=== PATIENT | female | born 1965 | race Caucasian/White ===

== ENCOUNTER 2020-10-13 11:46 | Emergency (ER) | payer OTHER ==
[2020-10-13 11:54] VITALS: RESP 20; TEMP 100.8
[2020-10-13] MEDS ORDERED: IBUPROFEN 800 MG TAB PO STA (12:21)
[2020-10-13] MEDS ORDERED: AZITHROMYCIN 500 MG TAB PO STA (12:21)
[2020-10-13] MEDS ORDERED: DEXAMETHASONE SOD PHOSPHATE 4 MG/ML 1 ML VIAL IM STA (12:21)
--- NOTE | 2020-10-13 12:30 | ED ---
Fever HPI - General Chief Complaint: Fever Stated Complaint: sorethroat, headache, fever Time Seen by Provider: 10/13/20 11:57 Source: patient Mode of arrival: wheelchair Limitations: no limitations - History of Present Illness Initial Comments: Patient complains of fever. She has a sore throat. She has no neck pain or stiffness. She has no trouble opening her mouth. She is able to tolerate solid and liquid oral intake. She has taken no medicine for her symptoms. She had a mild headache. She has no chest or belly or back pain. She has no cough or runny nose. - Related Data Previous Rx's Medication Instructions Recorded Azithromycin [Zithromax Z-pack (6 250 mg PO DIRECTED 5 Days #6 tab 10/13/20 tabs)] Allergies Allergy/AdvReac Type Severity Reaction Status Date / Time acetaminophen Allergy Unknown Verified 10/13/20 11:54 [From Darvocet-N 100] nickel Allergy Unknown Verified 10/13/20 11:54 propoxyphene Allergy Unknown Verified 10/13/20 11:54 [From Darvocet-N 100] sucrose Allergy Unknown Verified 10/13/20 11:54 Review of Systems ROS Statement: Those systems with pertinent positive or pertinent negative responses have been documented in the HPI. ROS Other: All systems not noted in ROS Statement are negative. Past Medical History Past Medical History: Hypertension Additional Past Medical History / Comment(s): OCD History of Any Multi-Drug Resistant Organisms: None Reported Past Surgical History: Appendectomy Past Psychological History: Depression, Panic Disorder Smoking Status: Current every day smoker Past Alcohol Use History: None Reported Past Drug Use History: None Reported General Exam Limitations: no limitations General appearance: alert, in no apparent distress Head exam: Present: atraumatic, normocephalic, normal inspection Eye exam: Present: normal appearance, PERRL, EOMI. Absent: scleral icterus, con junctival injection, periorbital swelling ENT exam: Present: other (Positive for erythema in the posterior pharynx) Neck exam: Present: normal inspection Respiratory exam: Present: normal lung sounds bilaterally. Absent: respiratory distress, wheezes Cardiovascular Exam: Present: regular rate, normal rhythm GI/Abdominal exam: Absent: distended Extremities exam: Present: full ROM Back exam: Absent: CVA tenderness (R) Neurological exam: Present: alert, oriented X3 Course Vital Signs 10/13/20 11:48 Temperature 100.8 F H Pulse Rate 93 Respiratory 20 Rate Blood Pressure 153/89 O2 Sat by Pulse 96 Oximetry Medical Decision Making - Medical Decision Making Patient presents with a sore throat and fever. I gave her Tylenol by mouth as well as a dose of azithromycin. She tolerates oral intake. The rest of her exam is unremarkable. She is stable for discharge. Disposition Clinical Impression: Pharyngitis Disposition: HOME SELF-CARE Condition: Good Instructions (If sedation given, give patient instructions): Pharyngitis (ED) Prescriptions: Azithromycin [Zithromax Z-pack (6 tabs)] 250 mg PO DIRECTED 5 Days #6 tab Is patient prescribed a controlled substance at d/c from ED?: No Referrals: Arash Frye MD [Primary Care Provider] - 1-2 days
[2020-10-13 12:58] VITALS: BP 140/79; PULSE 90
== END 2020-10-13 12:58 | disposition home or self-care (01) ==
LOC: EC 11:46
DX: J02.9 Acute pharyngitis, unspecified (principal); I10 Essential (primary) hypertension; F17.200 Nicotine dependence, unspecified, uncomplicated
CPT/HCPCS: 99283; 96372; J1100

== ENCOUNTER 2021-03-26 18:52 | Emergency (ER) | payer OTHER ==
[2021-03-26 19:16] VITALS: RESP 16; TEMP 99
--- NOTE | 2021-03-26 20:53 | US ---
EXAMINATION TYPE: US transvaginal DATE OF EXAM: 03/26/2021 COMPARISON: NONE CLINICAL HISTORY: Heavy vaginal bleeding; post menopausal. EC patient with post menopausal vaginal bl eeding x 1.5 weeks; take meds for HTN and Depression; ; HT5'8, WT 472lb. TECHNIQUE: Transvaginal (TV). Transvaginal sonographic images were medically necessary to better as sess the following anatomy: endometrium Date of LMP: 12 years ago EXAM MEASUREMENTS: Uterus: 11.4 x 4.5 x 6.0 cm Endometrial Stripe: 4.1 cm Right Ovary: not seen Left Ovary: not seen 1. Uterus: enlarged, anteverted. Nabothian cysts are seen in the cervical region. 2. Endometrium: abnormally thickened post menopause as thickness is greater than 0.5cm. Hyperechoic material seen within the endometrial cavity. 3. Bilateral Adnexa: wnl 4. Posterior cul-de-sac: wnl IMPRESSION: Thickened endometrium with endometrial canal blood products in the setting of a postmenopausal woman, differential includes endometrial hyperplasia and malignancy. Endometrium carcinoma should be excluded, correlation with history, physical exam and direct visualiz ation is recommended.
[2021-03-26 20:57] LABS: Basophils % (A) 1 %; Eosinophils # (A) 0.2 k/uL (0-0.7); Eosinophils % (A) 2 %; HCT 38.1 % (34.0-46.0); HGB 11.8 gm/dL (11.4-16.0); Lymphocytes # (A) 1.3 k/uL (1.0-4.8); Lymphocytes % (A) 18 %; MCH 26.8 pg (25.0-35.0); MCHC 30.8 g/dL (31.0-37.0); MCV 86.9 fL (80.0-100.0); Mean Platelet Volume 7.7; Monocytes # (A) 0.3 k/uL (0-1.0); Monocytes % (A) 4 %; Neutrophils # (A) 5.3 k/uL (1.3-7.7); Neutrophils % (A) 74 %; Platelet Count 241 k/uL (150-450); RBC 4.39 m/uL (3.80-5.40); RDW 14.9 % (11.5-15.5); WBC 7.2 k/uL (3.8-10.6)
--- NOTE | 2021-03-26 21:08 | ED ---
General Adult HPI - General Chief complaint: Vaginal Bleeding Stated complaint: Vaginal Bleeding Time Seen by Provider: 03/26/21 19:35 Source: patient, EMS Mode of arrival: EMS Limitations: no limitations - History of Present Illness Initial comments: 56 year-old female patient presents to the emergency department for evaluation of heavy vaginal bleeding and abdominal pain. States that she has had episodes of bleeding on and off since June. States today was the first day she has had pain. States she did pass a fist sized blood clot and her pain completely resolved. States she has had three episodes of bleeding this week. States she does feel somewhat more weak. Her last menstrual period was 12 years ago. Her last gynecologic visit over 20 years ago. She is , one spontaneous . Patient denies any recent rash, fever, chills, cough, shortness of breath, chest pain, nausea, vomiting, diarrhea, constipation, back pain, numbness, tingling, dizziness, weakness, hematuria, dysuria, urinary urgency, urinary frequency, headache, visual changes, or any other complaints. - Related Data Previous Rx's Medication Instructions Recorded Azithromycin [Zithromax Z-pack (6 250 mg PO DIRECTED 5 Days #6 tab 10/13/20 tabs)] Allergies Allergy/AdvReac Type Severity Reaction Status Date / Time acetaminophen Allergy Unknown Verified 10/13/20 11:54 [From Darvocet-N 100] nickel Allergy Unknown Verified 10/13/20 11:54 propoxyphene Allergy Unknown Verified 10/13/20 11:54 [From Darvocet-N 100] sucrose Allergy Unknown Verified 10/13/20 11:54 Review of Systems ROS Statement: Those systems with pertinent positive or pertinent negative responses have been documented in the HPI. ROS Other: All systems not noted in ROS Statement are negative. Past Medical History Past Medical History: Hypertension Additional Past Medical History / Comment(s): OCD History of Any Multi-Drug Resistant Organisms: None Reported Past Surgical History: Appendectomy Past Psychological History: Depression, Panic Disorder Smoking Status: Current every day smoker Past Alcohol Use History: None Reported Past Drug Use History: None Reported General Exam Limitations: no limitations General appearance: alert, in no apparent distress, other (This is a well- developed, well-nourished adult female patient.) Eye exam: Present: normal appearance, PERRL, EOMI. Absent: scleral icterus, con junctival injection, periorbital swelling ENT exam: Present: normal exam, normal oropharynx, mucous membranes moist Respiratory exam: Present: normal lung sounds bilaterally. Absent: respiratory distress, wheezes, rales, rhonchi, stridor Cardiovascular Exam: Present: regular rate, normal rhythm, normal heart sounds. Absent: systolic murmur, diastolic murmur, rubs, gallop, clicks GI/Abdominal exam: Present: soft, normal bowel sounds. Absent: distended, tenderness, guarding, rebound, rigid Neurological exam: Present: alert, oriented X3, CN II-XII intact Psychiatric exam: Present: normal affect, normal mood Skin exam: Present: warm, dry, intact, normal color. Absent: rash Course Vital Signs 03/26/21 03/26/21 18:56 22:23 Temperature 99.0 F Pulse Rate 93 74 Respiratory 16 16 Rate Blood Pressure 123/77 137/89 O2 Sat by Pulse 97 98 Oximetry Medical Decision Making - Medical Decision Making 56 year-old female patient presented for heavy vaginal bleeding on and off for the last 9 months. Physical exam unremarkable. V/S within normal range. Patient ambulatory in room without dizziness or difficulty. Labs reviewed and showed normal hemoglobin. US was performed and showed thickening of the endometrium, reported consistent with endometrial hyperplasia or endometrial cancer. I did discuss the case with hospice liaison OBGYN Dr. Feliz who is willing to have her follow up. I did inform patient of all results including the possibility of malignancy and importance of timely follow up. She is instructed to call Monday for an appointment. Return parameters are discussed in detail. She verbalizes und erstanding and agrees with this plan. Case discussed with my attending Dr. Solis. - Lab Data Result diagrams: 03/26/21 20:50 03/26/21 20:50 Lab Results 03/26/21 03/26/21 03/26/21 Range/Units 20:50 20:50 20:50 WBC 7.2 (3.8-10.6) k/uL RBC 4.39 (3.80-5.40) m/uL Hgb 11.8 (11.4-16.0) gm/dL Hct 38.1 (34.0-46.0) % MCV 86.9 (80.0-100.0) fL MCH 26.8 (25.0-35.0) pg MCHC 30.8 L (31.0-37.0) g/dL RDW 14.9 (11.5-15.5) % Plt Count 241 (150-450) k/uL MPV 7.7 Neutrophils % 74 % Lymphocytes % 18 % Monocytes % 4 % Eosinophils % 2 % Basophils % 1 % Neutrophils # 5.3 (1.3-7.7) k/uL Lymphocytes # 1.3 (1.0-4.8) k/uL Monocytes # 0.3 (0-1.0) k/uL Eosinophils # 0.2 (0-0.7) k/uL Basophils # 0.0 (0-0.2) k/uL PT 9.4 (9.0-12.0) sec INR 0.9 (<1.2) APTT 21.6 L (22.0-30.0) sec Sodium 138 (137-145) mmol/L Potassium 4.6 (3.5-5.1) mmol/L Chloride 105 (98-107) mmol/L Carbon Dioxide 25 (22-30) mmol/L Anion Gap 8 mmol/L BUN 17 (7-17) mg/dL Creatinine 0.79 (0.52-1.04) mg/dL Est GFR (CKD-EPI)AfAm >90 (>60 ml/min/1.73 sqM) Est GFR (CKD-EPI)NonAf 84 (>60 ml/min/1.73 sqM) Glucose 120 H (74-99) mg/dL Calcium 9.4 (8.4-10.2) mg/dL Total Bilirubin 0.2 (0.2-1.3) mg/dL AST 19 (14-36) U/L ALT 17 (4-34) U/L Alkaline Phosphatase 77 (38-126) U/L Total Protein 7.1 (6.3-8.2) g/dL Albumin 3.9 (3.5-5.0) g/dL Blood Type Blood Type Recheck Bld Type Recheck Status Antibody Screen Spec Expiration Date 03/26/21 Range/Units 20:50 WBC (3.8-10.6) k/uL RBC (3.80-5.40) m/uL Hgb (11.4-16.0) gm/dL Hct (34.0-46.0) % MCV (80.0-100.0) fL MCH (25.0-35.0) pg MCHC (31.0-37.0) g/dL RDW (11.5-15.5) % Plt Count (150-450) k/uL MPV Neutrophils % % Lymphocytes % % Monocytes % % Eosinophils % % Basophils % % Neutrophils # (1.3-7.7) k/uL Lymphocytes # (1.0-4.8) k/uL Monocytes # (0-1.0) k/uL Eosinophils # (0-0.7) k/uL Basophils # (0-0.2) k/uL PT (9.0-12.0) sec INR (<1.2) APTT (22.0-30.0) sec Sodium (137-145) mmol/L Potassium (3.5-5.1) mmol/L Chloride (98-107) mmol/L Carbon Dioxide (22-30) mmol/L Anion Gap mmol/L BUN (7-17) mg/dL Creatinine (0.52-1.04) mg/dL Est GFR (CKD-EPI)AfAm (>60 ml/min/1.73 sqM) Est GFR (CKD-EPI)NonAf (>60 ml/min/1.73 sqM) Glucose (74-99) mg/dL Calcium (8.4-10.2) mg/dL Total Bilirubin (0.2-1.3) mg/dL AST (14-36) U/L ALT (4-34) U/L Alkaline Phosphatase (38-126) U/L Total Protein (6.3-8.2) g/dL Albumin (3.5-5.0) g/dL Blood Type O Positive Blood Type Recheck No Previous Record Bld Type Recheck Status CABO Indicated Antibody Screen NEGATIVE Spec Expiration Date 03/29/20212349 - Radiology Data Radiology results: report reviewed, image reviewed Transvaginal ultrasound was obtained. Report was reviewed in its entirety. Impression by Dr. Cadet shows thickened endometrium with endometrial canal blood products in the setting a postmenopausal woman, differential includes endometrial hyperplasia and malignancy. Disposition Clinical Impression: Dysfunctional uterine bleeding, Thickened endometrium Disposition: HOME SELF-CARE Condition: Good Instructions (If sedation given, give patient instructions): Dysfunctional Uterine Bleeding (ED) Additional Instructions: Call Dr. Feliz's office on Monday for appointment, it could take a few weeks to get in to see her. Return immediately if her bleeding worsens or he develop any fainting or significant dizziness. Follow up with your primary care physician for recheck in 1-2 days. Return for any new, worsening, or concerning symptoms. Is patient prescribed a controlled substance at d/c from ED?: No Referrals: Arash Frye MD [Primary Care Provider] - 1-2 days Mariposa Feliz DO [Doctor of Osteopathic Medicine] - 1-2 days Time of Disposition: 21:57
[2021-03-26 21:12] LABS: INR 0.9 (<1.2); Prothrombin Time 9.4 sec (9.0-12.0)
[2021-03-26 21:21] LABS: ALT 17 U/L (4-34); AST 19 U/L (14-36); African American GFR (CKD) >90 (>60 ml/min/1.73 sqM); Albumin 3.9 g/dL (3.5-5.0); Alkaline Phosphatase 77 U/L (38-126); Anion Gap 8 mmol/L; Blood Urea Nitrogen 17 mg/dL (7-17); Calcium 9.4 mg/dL (8.4-10.2); Carbon Dioxide 25 mmol/L (22-30); Chloride 105 mmol/L (98-107); Glucose 120 mg/dL (74-99); Non-African American GFR(CKD) 84 (>60 ml/min/1.73 sqM); Potassium 4.6 mmol/L (3.5-5.1); Sodium 138 mmol/L (137-145); Total Bilirubin 0.2 mg/dL (0.2-1.3); Total Protein 7.1 g/dL (6.3-8.2)
[2021-03-26 21:27] LABS: Partial Thromboplastin Time 21.6 sec (22.0-30.0)
[2021-03-26 22:24] VITALS: BP 137/89; PULSE 74
== END 2021-03-26 22:24 | disposition home or self-care (01) ==
LOC: EC 18:52
DX: R93.89 Abnormal findings on diagnostic imaging of other specified body structures (principal); I10 Essential (primary) hypertension; F17.200 Nicotine dependence, unspecified, uncomplicated; Z90.49 Acquired absence of other specified parts of digestive tract; F32.9 Major depressive disorder, single episode, unspecified
CPT/HCPCS: 36415; 76830; 80053; 85025; 85610; 85730; 86850; 86900; 86901; 99284

== ENCOUNTER 2022-10-16 01:21 | Emergency (ER) | payer OTHER ==
[2022-10-16 01:32] VITALS: TEMP 98.2
[2022-10-16] MEDS ORDERED: BENZONATATE 100 MG CAP PO STA (02:53)
--- NOTE | 2022-10-16 05:22 | ED ---
General Adult HPI - General Chief complaint: Shortness of Breath Stated complaint: Difficulty Breathing Time Seen by Provider: 10/16/22 02:04 Source: patient Mode of arrival: wheelchair Limitations: no limitations - History of Present Illness Initial comments: This is a 57-year-old female with a past medical history including PTSD, OCD and anxiety as well as hypertension presented to the emergency department for shortness of breath. The patient stated that she had an upper respiratory infection 5 weeks ago and was treated with antibiotics as well as 2 rounds of steroids. The patient stated that over the last one day she did have recurrence of a cough and a "tickle" at the top part of her chest that would make her cough. The patient came to the emergency department today because her coughing was continuous and her albuterol rescue inhaler was not sufficient. The patient denied any lightheadedness or dizziness as well as any nausea and vomiting. - Related Data Previous Rx's Medication Instructions Recorded Azithromycin [Zithromax Z-pack (6 250 mg PO DIRECTED 5 Days #6 tab 10/13/20 tabs)] Benzonatate [Tessalon Perles] 100 mg PO TID PRN #30 capsule 10/16/22 Allergies Allergy/AdvReac Type Severity Reaction Status Date / Time acetaminophen Allergy Unknown Verified 10/16/22 01:27 [From Darvocet-N 100] nickel Allergy Unknown Verified 10/16/22 01:27 propoxyphene Allergy Unknown Verified 10/16/22 01:27 [From Darvocet-N 100] sucrose Allergy Unknown Verified 10/16/22 01:27 Review of Systems ROS Statement: Those systems with pertinent positive or pertinent negative responses have been documented in the HPI. ROS Other: All systems not noted in ROS Statement are negative. Past Medical History Past Medical History: Hypertension Additional Past Medical History / Comment(s): OCD History of Any Multi-Drug Resistant Organisms: None Reported Past Surgical History: Appendectomy Past Psychological History: Depression, Panic Disorder Smoking Status: Current some day smoker Past Alcohol Use History: None Reported Past Drug Use History: None Reported General Exam Limitations: no limitations General appearance: alert, in no apparent distress, obese Head exam: Present: atraumatic, normocephalic, normal inspection Eye exam: Present: normal appearance, PERRL Pupils: Present: normal accommodation ENT exam: Present: normal exam, normal oropharynx, mucous membranes moist Neck exam: Present: normal inspection, full ROM Respiratory exam: Present: normal lung sounds bilaterally Cardiovascular Exam: Present: regular rate, normal rhythm, normal heart sounds GI/Abdominal exam: Present: soft, normal bowel sounds Extremities exam: Present: normal inspection, full ROM Back exam: Present: normal inspection, full ROM Neurological exam: Present: alert, oriented X3, CN II-XII intact Psychiatric exam: Present: normal affect, normal mood Skin exam: Present: warm, dry Course Vital Signs 10/16/22 01:27 Temperature 98.2 F Pulse Rate 92 Respiratory 20 Rate Blood Pressure 115/75 O2 Sat by Pulse 98 Oximetry Medical Decision Making - Medical Decision Making Was pt. sent in by a medical professional or institution (, [facility], WOOD GRINDER OPERATOR, urgent care, hospital, or longterm...) When possible be specific @ -No Did you speak to anyone other than the patient for history (EMS, parent, family, police, friend...)? What history was obtained from this source @ -No Did you review nursing and triage notes (agree or disagree)? Why? @ -I reviewed and agree with nursing and triage notes Were old charts reviewed (outside hosp., previous admission, EMS record, old EKG, old radiological studies, urgent care reports/EKG's, longterm records)? Report findings @ -No old charts were reviewed Differential Diagnosis (chest pain, altered mental status, abdominal pain women, abdominal pain men, vaginal bleeding, weakness, fever, dyspnea, syncope, headache, dizziness, GI bleed, back pain, seizure, CVA, palpatations, mental health)? @ -Bronchitis, pneumonia, pneumothorax EKG interpreted by me (3pts min.). @ -None X-rays interpreted by me (1pt min.). @ -Chest x-ray was reviewed and was interpreted by myself showing no acute process or pneumonia noted. CT interpreted by me (1pt min.). @ -None done U/S interpreted by me (1pt. min.). @ -None done What testing was considered but not performed or refused? (CT, X-rays, U/S, labs)? Why? @ -None What meds were considered but not given or refused? Why? @ -None Did you discuss the management of the patient with other professionals (professionals i.e. Dr., PA, WOOD GRINDER OPERATOR, lab, RT, psych nurse, outreach and education social worker, sap business objects developer, teacher, aoc plans intelligence officer, casey saw operator)? Give summary @ -No Was smoking cessation discussed for >3mins.? @ -No Was critical care preformed (if so, how long)? @ -No Were there social determinants of health that impacted care today? How? (Homelessness, low income, unemployed, alcoholism, drug addiction, transportation, low edu. Level, literacy, decrease access to med. care, residential, rehab)? @ -No Was there de-escalation of care discussed even if they declined (Discuss DNR or withdrawal of care, Hospice)? DNR status @ -No What co-morbidities impacted this encounter? (DM, HTN, Smoking, COPD, CAD, Cancer, CVA, ARF, Chemo, Hep., AIDS, mental health diagnosis, sleep apnea, morbid obesity)? @ -Morbid obesity, hypertension Was patient admitted / discharged? Hospital course, mention meds given and route, prescriptions, significant lab abnormalities, going to OR and other pertinent info. @ -The patient was seen and evaluated emergency department. Physical exam, the patient was resting in bed without any acute distress. Vital signs admission were stable. Due to the nature the patient's complaints, a chest x-ray was obtained. The patient was also given Tessalon Perles. Chest x-ray was obtained and was interpreted by myself showing no acute process. The patient likely had an upper respiratory infection versus a bronchitis therefore the patient was given Tessalon Perles and told to continue to monitor her symptoms. The patient was advised to report back to emergency department if her pain and symptoms significant acutely worse. The patient was agreeable to this and all her questions were answered reportedly. The patient was discharged home in stable condition. Undiagnosed new problem with uncertain prognosis? @ -No Drug Therapy requiring intensive monitoring for toxicity (Heparin, Nitro, Insulin, Cardizem)? @ -No Were any procedures done? @ -No Diagnosis/symptom? @ -Cough, secondary to likely upper respiratory infection Acute, or Chronic, or Acute on Chronic? @ -Acute on chronic Uncomplicated (without systemic symptoms) or Complicated (systemic symptoms)? @ -Uncomplicated Side effects of treatment? @ -No Exacerbation, Progression, or Severe Exacerbation? @ -No Poses a threat to life or bodily function? How? (Chest pain, [place], CA, pneumonia, PE, COPD, DKA, ARF, appy, cholecystitis, CVA, Diverticulitis, Homicidal, Suicidal, threat to staff... and all critical care pts) @ -No Disposition Clinical Impression: URI (upper respiratory infection) Disposition: HOME SELF-CARE Condition: Stable Instructions (If sedation given, give patient instructions): Upper Respiratory Infection (DC) Prescriptions: Benzonatate [Tessalon Perles] 100 mg PO TID PRN #30 capsule PRN Reason: Cough Is patient prescribed a controlled substance at d/c from ED?: No Referrals: Leonardo Riggins MD [Primary Care Provider] - 1-2 days Time of Disposition: 06:20
[2022-10-16 06:54] VITALS: BP 116/62; PULSE 72; RESP 18
--- NOTE | 2022-10-16 07:18 | XR ---
EXAMINATION TYPE: XR chest 2V DATE OF EXAM: 10/16/2022 COMPARISON: None HISTORY: 57-year-old female with cough and shortness of breath TECHNIQUE: PA and lateral views FINDINGS: The cardiomediastinal silhouette, aorta, and pulmonary vasculature are within normal limits. There is mild interstitial prominence. Otherwise, lungs and pleural spaces are clear. IMPRESSION: Mild interstitial prominence which may reflect bronchitis or asthma. Otherwise, no acute cardiopulmon anjali process.
== END 2022-10-16 06:53 | disposition home or self-care (01) ==
LOC: EC 01:21
DX: J06.9 Acute upper respiratory infection, unspecified (principal); I10 Essential (primary) hypertension; F17.200 Nicotine dependence, unspecified, uncomplicated
CPT/HCPCS: 71046; 99284

== ENCOUNTER 2024-04-06 17:59 | Emergency (ER) | payer OTHER ==
--- NOTE | 2024-04-06 19:27 | ED ---
Abdominal Pain HPI - General Chief Complaint: Abdominal Pain Stated Complaint: Abdominal Pain Time Seen by Provider: 04/06/24 18:15 Source: patient, RN notes reviewed Mode of arrival: wheelchair Limitations: no limitations - History of Present Illness Initial Comments: This is a 59-year-old female with a history of uterine cancer, currently on provera, and abnormal uterine bleeding presents ER chief complaint of pelvic pain, nausea, and vomiting that has been worsening over the past 5 days. Pain is located to the pelvis most notable to the right side. She is also been experiencing intermittent vaginal bleeding that is currently spotting. She endorses chills but no reported fevers. Denies hematemesis, hematochezia, chest pain, shortness of breath or difficulty breathing. Patient is pending hysterectomy till established care with drug and alcohol treatment specialist.. Follows with oncologist out of [facility] for uterine cancer. Denies known history of metastatic disease. - Related Data Previous Rx's Medication Instructions Recorded Azithromycin [Zithromax Z-pack (6 250 mg PO DIRECTED 5 Days #6 tab 10/13/20 tabs)] Benzonatate [Tessalon Perles] 100 mg PO TID PRN #30 capsule 10/16/22 Allergies Allergy/AdvReac Type Severity Reaction Status Date / Time acetaminophen Allergy Unknown Verified 04/06/24 18:27 [From Darvocet-N 100] nickel Allergy Unknown Verified 04/06/24 18:27 propoxyphene Allergy Unknown Verified 04/06/24 18:27 [From Darvocet-N 100] sucrose Allergy Unknown Verified 04/06/24 18:27 Review of Systems ROS Statement: Those systems with pertinent positive or pertinent negative responses have been documented in the HPI. ROS Other: All systems not noted in ROS Statement are negative. Past Medical History Past Medical History: Cancer, Hypertension Additional Past Medical History / Comment(s): OCD History of Any Multi-Drug Resistant Organisms: None Reported Past Surgical History: Appendectomy Additional Past Surgical History / Comment(s): D&C, dental surgery Past Psychological History: Depression, Panic Disorder Smoking Status: Current some day smoker Past Alcohol Use History: None Reported Past Drug Use History: None Reported General Exam Limitations: no limitations General appearance: alert, in no apparent distress, obese ENT exam: Present: normal exam, mucous membranes moist Neck exam: Present: normal inspection. Absent: tenderness, meningismus, lymphadenopathy Respiratory exam: Present: normal lung sounds bilaterally. Absent: respiratory distress, wheezes, rales, rhonchi, stridor Cardiovascular Exam: Present: regular rate, normal rhythm, normal heart sounds. Absent: systolic murmur, diastolic murmur, rubs, gallop, clicks GI/Abdominal exam: Present: soft, tenderness (pelvic, most notable right lower), normal bowel sounds. Absent: distended, guarding, rebound, rigid Extremities exam: Present: normal inspection, full ROM, normal capillary refill. Absent: tenderness, pedal edema, joint swelling, calf tenderness Back exam: Present: normal inspection Neurological exam: Present: alert, oriented X3, CN II-XII intact Course Vital Signs 04/06/24 04/06/24 18:22 22:32 Temperature 98.7 F 97.8 F Pulse Rate 79 77 Respiratory 20 18 Rate Blood Pressure 136/74 139/68 O2 Sat by Pulse 98 100 Oximetry Medical Decision Making - Medical Decision Making Was pt. sent in by a medical professional or institution (, PA, FIRE PROTECTION INSPECTOR, urgent care, hospital, or [place] health care facility...) When possible be specific @ -No Did you speak to anyone other than the patient for history (EMS, parent, family, police, friend...)? What history was obtained from this source @ -No Did you review nursing and triage notes (agree or disagree)? Why? @ -I reviewed and agree with nursing and triage notes Were old charts reviewed (outside hosp., previous admission, EMS record, old EKG, old radiological studies, urgent care reports/EKG's, [place] health care facility records)? Report findings @ -No old charts were reviewed Differential Diagnosis (chest pain, altered mental status, abdominal pain women, abdominal pain men, vaginal bleeding, weakness, fever, dyspnea, syncope, headache, dizziness, GI bleed, back pain, seizure, CVA, palpatations, mental health, musculoskeletal)? @ -Differential Abdominal Pain Women: Appendicitis, Cholecystitis, diverticulosis, ischemic bowel, pancreatitis, hepatitis, UTI, gastroenteritis, AAA, incarcerated hernia, bowel obstruction, constipation, inflammatory bowel, hepatitis, peptic ulcer disease, splenic infa rction, perforated viscus, vulvitis, ovarian torsion, PID, kidney stone, placenta abruption, this is not meant to be an all-inclusive list EKG interpreted by me (3pts min.). @ -none X-rays interpreted by me (1pt min.). @ -None done CT interpreted by me (1pt min.). @ -CT of the abdomen pelvis noted to be evident of contrast members there may have been extra lesion and a bulky appearance to the uterus, correlate to exclude underlying abnormal thickening/mass, and Evidence of respiratory nodules patient denies stones measuring up to 1 cm. U/S interpreted by me (1pt. min.). @ -None done What testing was considered but not performed or refused? (CT, X-rays, U/S, labs)? Why? @ -None What meds were considered but not given or refused? Why? @ -None Did you discuss the management of the patient with other professionals (professionals i.e. , PA, FIRE PROTECTION INSPECTOR, lab, RT, psych nurse, director of social work, baker, teacher, senior escrow officer, case finishing machine adjuster)? Give summary @ -No Was smoking cessation discussed for >3mins.? @ -No Was critical care preformed (if so, how long)? @ -No Were there social determinants of health that impacted care today? How? (Homelessness, low income, unemployed, alcoholism, drug addiction, transportation, low edu. Level, literacy, decrease access to med. care, [facility], rehab)? @ -No Was there de-escalation of care discussed even if they declined (Discuss DNR or withdrawal of care, Hospice)? DNR status @ -No What co-morbidities impacted this encounter? (DM, HTN, Smoking, COPD, CAD, Cancer, CVA, ARF, Chemo, Hep., AIDS, mental health diagnosis, sleep apnea, morbid obesity)? @ -None Was patient admitted / discharged? Hospital course, mention meds given and route, prescriptions, significant lab abnormalities, going to OR and other pertinent info. @ -discharged. 59-year-old female with pelvic pain, nausea and vomiting. On evaluation patient is resting company no signs acute distress. Vitals are stable. Patient is noted to have tenderness palpation of the pelvis most notable on the right lower. Patient states that she has not been experiencing vaginal bleeding over the past 2 days. She is provided with Toradol and Zofran for pain and nausea pending laboratory results and CT imaging. Patient's labs remarkable for mild LINWOOD with a BUN of 18 and creatinine of 1.28. At this time a liter fluid bolus was ordered. CBC and coagulation profile within normal limits. CT remarkable for bulky appearance of the uterus and evidence of respiratory nodules. Patient is provided with results of laboratory studies and is instructed to follow-up sooner than May with oncologist for further evaluation with concern for possible metastatic disease. Patient states that she is feeling better after Toradol administration and is stable for discharge at this time. All questions have been answered at bedside and strict return parameters discussed with the patient she verbalized understanding. Case discussed with Dr. Rose Undiagnosed new problem with uncertain prognosis? @ -No Drug Therapy requiring intensive monitoring for toxicity (Heparin, Nitro, Insulin, Cardizem)? @ -No Were any procedures done? @ -No Diagnosis/symptom? @ -abnormal uterine bleeding, pelvic pain, uterine cancer, r/o metastatic disease Acute, or Chronic, or Acute on Chronic? @ -acute Uncomplicated (without systemic symptoms) or Complicated (systemic symptoms)? @ -uncomplicated Side effects of treatment? @ -No Exacerbation, Progression, or Severe Exacerbation? @ -No Poses a threat to life or bodily function? How? (Chest pain, [place], [place], pneumonia, PE, COPD, DKA, ARF, appy, cholecystitis, CVA, Diverticulitis, Homicidal, Suicidal, threat to staff... and all critical care pts) @ -No - Lab Data Result diagrams: 04/06/24 19:50 04/06/24 19:50 Lab Results 04/06/24 04/06/24 04/06/24 Range/Units 19:50 19:50 19:50 WBC 8.4 (3.8-10.6) k/uL RBC 4.89 (3.80-5.40) m/uL Hgb 13.1 (11.4-16.0) gm/dL Hct 41.3 (34.0-46.0) % MCV 84.5 (80.0-100.0) fL MCH 26.7 (25.0-35.0) pg MCHC 31.7 (31.0-37.0) g/dL RDW 16.4 H (11.5-15.5) % Plt Count 241 (150-450) k/uL MPV 7.8 Neutrophils % 80 % Lymphocytes % 10 % Monocytes % 6 % Eosinophils % 2 % Basophils % 0 % Neutrophils # 6.7 (1.3-7.7) k/uL Lymphocytes # 0.9 L (1.0-4.8) k/uL Monocytes # 0.5 (0-1.0) k/uL Eosinophils # 0.2 (0-0.7) k/uL Basophils # 0.0 (0-0.2) k/uL Hypochromasia Slight Anisocytosis Slight PT (10.0-12.5) sec INR (<1.2) APTT (22.0-30.0) sec Sodium 139 (137-145) mmol/L Potassium 4.4 (3.5-5.1) mmol/L Chloride 108 H (98-107) mmol/L Carbon Dioxide 20 L (22-30) mmol/L Anion Gap 11 mmol/L BUN 18 H (7-17) mg/dL Creatinine 1.28 H (0.52-1.04) mg/dL Est GFR (CKD-EPI)AfAm 53 (>60 ml/min/1.73 sqM) Est GFR (CKD-EPI)NonAf 46 (>60 ml/min/1.73 sqM) Glucose 94 (74-99) mg/dL Plasma Lactic Acid Jose 1.9 (0.7-2.0) mmol/L Calcium 10.6 H (8.4-10.2) mg/dL Total Bilirubin 0.7 (0.2-1.3) mg/dL AST 17 (14-36) U/L ALT 11 (4-34) U/L Alkaline Phosphatase 93 (38-126) U/L Total Protein 7.2 (6.3-8.2) g/dL Albumin 4.1 (3.5-5.0) g/dL Amylase 35 (30-110) U/L Lipase 50 (23-300) U/L Urine Color Urine Appearance (Clear) Urine pH (5.0-8.0) Ur Specific [place] (1.001-1.035) Urine Protein (Negative) Urine Glucose (UA) (Negative) Urine Ketones (Negative) Urine Blood (Negative) Urine Nitrite (Negative) Urine Bilirubin (Negative) Urine Urobilinogen (<2.0) mg/dL Ur Leukocyte Esterase (Negative) Urine RBC (0-5) /hpf Urine WBC (0-5) /hpf Urine WBC Clumps (None) /hpf Ur Squamous Epith Cells (0-4) /hpf Urine Bacteria (None) /hpf Hyaline Casts (0-2) /lpf Urine Mucus (None) /hpf 04/06/24 04/06/24 Range/Units 19:50 20:37 WBC (3.8-10.6) k/uL RBC (3.80-5.40) m/uL Hgb (11.4-16.0) gm/dL Hct (34.0-46.0) % MCV (80.0-100.0) fL MCH (25.0-35.0) pg MCHC (31.0-37.0) g/dL RDW (11.5-15.5) % Plt Count (150-450) k/uL MPV Neutrophils % % Lymphocytes % % Monocytes % % Eosinophils % % Basophils % % Neutrophils # (1.3-7.7) k/uL Lymphocytes # (1.0-4.8) k/uL Monocytes # (0-1.0) k/uL Eosinophils # (0-0.7) k/uL Basophils # (0-0.2) k/uL Hypochromasia Anisocytosis PT 10.6 (10.0-12.5) sec INR 1.0 (<1.2) APTT 25.1 (22.0-30.0) sec Sodium (137-145) mmol/L Potassium (3.5-5.1) mmol/L Chloride (98-107) mmol/L Carbon Dioxide (22-30) mmol/L Anion Gap mmol/L BUN (7-17) mg/dL Creatinine (0.52-1.04) mg/dL Est GFR (CKD-EPI)AfAm (>60 ml/min/1.73 sqM) Est GFR (CKD-EPI)NonAf (>60 ml/min/1.73 sqM) Glucose (74-99) mg/dL Plasma Lactic Acid Jose (0.7-2.0) mmol/L Calcium (8.4-10.2) mg/dL Total Bilirubin (0.2-1.3) mg/dL AST (14-36) U/L ALT (4-34) U/L Alkaline Phosphatase (38-126) U/L Total Protein (6.3-8.2) g/dL Albumin (3.5-5.0) g/dL Amylase (30-110) U/L Lipase (23-300) U/L Urine Color Light Red Urine Appearance Clear (Clear) Urine pH 5.0 (5.0-8.0) Ur Specific [place] 1.020 (1.001-1.035) Urine Protein Trace H (Negative) Urine Glucose (UA) Negative (Negative) Urine Ketones 1+ H (Negative) Urine Blood Large H (Negative) Urine Nitrite Negative (Negative) Urine Bilirubin Negative (Negative) Urine Urobilinogen <2.0 (<2.0) mg/dL Ur Leukocyte Esterase Negative (Negative) Urine RBC >182 H (0-5) /hpf Urine WBC 4 (0-5) /hpf Urine WBC Clumps Rare H (None) /hpf Ur Squamous Epith Cells <1 (0-4) /hpf Urine Bacteria Rare H (None) /hpf Hyaline Casts 35 H (0-2) /lpf Urine Mucus Few H (None) /hpf Disposition Clinical Impression: Pelvic pain, Abnormal uterine bleeding Disposition: HOME SELF-CARE Condition: Good Instructions (If sedation given, give patient instructions): Pelvic Pain in Women (ED) Additional Instructions: Please return to the Emergency Department if symptoms worsen or any other concerns. Recommend that you contact your oncologist on Monday to schedule sooner follow-up appointment for further evaluation. Is patient prescribed a controlled substance at d/c from ED?: No Referrals: Steven Wood MD [Primary Care Provider] - 1-2 days Time of Disposition: 22:25
[2024-04-06] MEDS: KETOROLAC 15 MG/ML 1 ML VIAL IVP STA (19:58)
[2024-04-06] MEDS: ONDANSETRON 4 MG/2 ML VIAL IVP STA (20:01)
[2024-04-06 20:16] LABS: Anisocytosis Slight; Basophils % (A) 0 %; Eosinophils # (A) 0.2 k/uL (0-0.7); Eosinophils % (A) 2 %; HCT 41.3 % (34.0-46.0); HGB 13.1 gm/dL (11.4-16.0); Hypochromasia Slight; Lymphocytes # (A) 0.9 k/uL (1.0-4.8); Lymphocytes % (A) 10 %; MCH 26.7 pg (25.0-35.0); MCHC 31.7 g/dL (31.0-37.0); MCV 84.5 fL (80.0-100.0); Mean Platelet Volume 7.8; Monocytes # (A) 0.5 k/uL (0-1.0); Monocytes % (A) 6 %; Neutrophils # (A) 6.7 k/uL (1.3-7.7); Neutrophils % (A) 80 %; Platelet Count 241 k/uL (150-450); RBC 4.89 m/uL (3.80-5.40); RDW 16.4 % (11.5-15.5); WBC 8.4 k/uL (3.8-10.6)
[2024-04-06 20:32] LABS: ALT 11 U/L (4-34); AST 17 U/L (14-36); African American GFR (CKD) 53 (>60 ml/min/1.73 sqM); Albumin 4.1 g/dL (3.5-5.0); Alkaline Phosphatase 93 U/L (38-126); Amylase 35 U/L (30-110); Anion Gap 11 mmol/L; Blood Urea Nitrogen 18 mg/dL (7-17); Calcium 10.6 mg/dL (8.4-10.2); Carbon Dioxide 20 mmol/L (22-30); Chloride 108 mmol/L (98-107); Glucose 94 mg/dL (74-99); Lipase 50 U/L (23-300); Non-African American GFR(CKD) 46 (>60 ml/min/1.73 sqM); Potassium 4.4 mmol/L (3.5-5.1); Sodium 139 mmol/L (137-145); Total Bilirubin 0.7 mg/dL (0.2-1.3); Total Protein 7.2 g/dL (6.3-8.2)
[2024-04-06 20:38] LABS: Partial Thromboplastin Time 25.1 sec (22.0-30.0); Prothrombin Time 10.6 sec (10.0-12.5)
[2024-04-06] MEDS: SODIUM CHLORIDE 0.9% 1,000 ML IV STA (21:09)
[2024-04-06 21:30] LABS: Appearance,Urine Clear (Clear); Bacteria,Urine Rare /hpf; Bilirubin,Urine Negative (Negative); Blood,Urine Large (Negative); Color,Urine Light Red; Glucose,Urine (UA) Negative (Negative); Hyaline Casts,Urine 35 /lpf (0-2); Ketones,Urine 1+ (Negative); Leukocyte Esterase,Urine Negative (Negative); Mucus,Urine Few /hpf; Nitrite,Urine Negative (Negative); Protein,Urine Trace (Negative); RBC,Urine >182 /hpf (0-5); Squamous Epithelial Cell,Urine <1 /hpf (0-4); Urobilinogen,Urine <2.0 mg/dL (<2.0); WBC,Urine 4 /hpf (0-5)
--- NOTE | 2024-04-06 21:50 | CT ---
EXAMINATION TYPE: CT abdomen pelvis w con DATE OF EXAM: 04/06/2024 9:29 PM COMPARISON: None. CLINICAL INDICATION: Female, 59 years old with history of ab pain, pt c/o abd pain with dysuria, naus ea and vomiting, TECHNIQUE: Contiguous axial scanning of the abdomen and pelvis following administration of 100 ml Omn ipaque 300 IV contrast. Delayed images through the kidneys and coronal/sagittal reconstructions perf ormed. CT DLP: 3405.8 mGycm, Automated exposure control for dose reduction was used. FINDINGS: The heart is upper limits of normal size without pericardial effusion. Innumerable nodules in the vis ualized lungs measuring up to 1 cm. No pleural effusion. Noncontrast appearance of the liver, gallbladder, adrenal glands, right kidney, spleen, and pancreas show no gross abnormality. An 8 mm fat density lesion cortex left kidney most likely represents a small AML. No dilated small bowel, free fluid, or free air. No mesenteric or retroperitoneal lymphadenopathy. Small fatty embolus or hernia. There is mild fat st randing in the intra-abdominal fat just deep to the umbilical hernia, axial image 62. Scattered mild stool. No pericolonic inflammatory change. Bladder collapsed. Pelvic phleboliths. Uterus is anteverted, somewhat bulky appearance for patient's age. Ovaries not clearly seen. No abnormal fluid collection in the pelvis or pelvic lymphadenopathy. Moderate to severe degenerative disc disease L5-S1. Facet arthropathy mid to lower lumbar spine. Mild to moderate degenerative disc disease lower thoracic spine. IMPRESSION: 1. NOTE THAT CONTRAST ENHANCEMENT IS NOT SEEN ON THIS EXAM. THERE MAY HAVE BEEN CONTRAST EXTRAVASATIO N. PLEASE ASSESS THE PATIENT'S INJECTED EXTREMITY. 2. NUMEROUS PULMONARY NODULES IN THE VISUALIZED LUNGS MEASURING UP TO 1 CM. METASTATIC DISEASE, ATYPI JULIO VIRAL/UNGUAL/MYCOBACTERIAL INFECTIONS, AND OLD GRANULOMATOUS DISEASE ARE ALL DIFFERENTIAL CONSIDE RATIONS. FURTHER CLINICAL CORRELATION RECOMMENDED. 3. BULKY APPEARANCE TO THE UTERUS FOR PATIENT'S AGE. CORRELATE TO EXCLUDE UNDERLYING ABNORMAL ENDOMET RIAL THICKENING/MASS. [facility], , 04/06/2024 9:48 PM
[2024-04-06 22:38] VITALS: BP 139/68; PULSE 77; RESP 18; TEMP 97.8
== END 2024-04-06 22:39 | disposition home or self-care (01) ==
LOC: EC 17:59
DX: N93.9 Abnormal uterine and vaginal bleeding, unspecified (principal); R10.2 Pelvic and perineal pain; F17.200 Nicotine dependence, unspecified, uncomplicated; Z88.6 Allergy status to analgesic agent; Z88.8 Allergy status to other drugs, medicaments and biological substances; Z91.018 Allergy to other foods; Z90.49 Acquired absence of other specified parts of digestive tract; Z85.42 Personal history of malignant neoplasm of other parts of uterus
CPT/HCPCS: 99284; 96374; 96375; 96361; 36415; 80053; 82150; 83605; 83690; 85025; 85610; 85730; 81001; 74177; J2405; J1885; Q9967

== ENCOUNTER 2024-04-08 13:17 | Emergency (ER) | payer OTHER ==
[2024-04-08 13:22] VITALS: TEMP 97.8
[2024-04-08] MEDS: SODIUM CHLORIDE 0.9% 1,000 ML IV STA (14:11)
[2024-04-08] MEDS: PANTOPRAZOLE 40 MG/10 ML VIAL IVP STA (14:12)
[2024-04-08] MEDS: KETOROLAC 15 MG/ML 1 ML VIAL IVP STA (14:12)
[2024-04-08] MEDS: MORPHINE SULFATE 4 MG/ML SYRINGE IVP STA (14:12)
[2024-04-08] MEDS: ONDANSETRON 4 MG/2 ML VIAL IVP STA (14:12)
[2024-04-08 14:22] VITALS: RESP 16
[2024-04-08 14:34] LABS: Anisocytosis Slight; Basophils % (A) 0 %; Eosinophils # (A) 0.1 k/uL (0-0.7); Eosinophils % (A) 2 %; HCT 39.4 % (34.0-46.0); HGB 12.6 gm/dL (11.4-16.0); Hypochromasia Slight; Lymphocytes # (A) 0.9 k/uL (1.0-4.8); Lymphocytes % (A) 11 %; MCHC 32.1 g/dL (31.0-37.0); Mean Platelet Volume 7.9; Monocytes # (A) 0.5 k/uL (0-1.0); Monocytes % (A) 6 %; Neutrophils % (A) 79 %; Platelet Count 246 k/uL (150-450); RBC 4.68 m/uL (3.80-5.40); RDW 16.6 % (11.5-15.5); WBC 7.6 k/uL (3.8-10.6)
[2024-04-08 14:46] LABS: ALT 12 U/L (4-34); AST 16 U/L (14-36); African American GFR (CKD) 50 (>60 ml/min/1.73 sqM); Albumin 3.8 g/dL (3.5-5.0); Alkaline Phosphatase 91 U/L (38-126); Amylase 38 U/L (30-110); Anion Gap 8 mmol/L; Blood Urea Nitrogen 20 mg/dL (7-17); Calcium 10.6 mg/dL (8.4-10.2); Carbon Dioxide 19 mmol/L (22-30); Chloride 111 mmol/L (98-107); Glucose 117 mg/dL (74-99); Lipase 49 U/L (23-300); Non-African American GFR(CKD) 43 (>60 ml/min/1.73 sqM); Potassium 4.6 mmol/L (3.5-5.1); Sodium 138 mmol/L (137-145); Total Bilirubin 0.5 mg/dL (0.2-1.3); Total Protein 6.7 g/dL (6.3-8.2)
[2024-04-08 14:48] LABS: Partial Thromboplastin Time 23.8 sec (22.0-30.0); Prothrombin Time 10.8 sec (10.0-12.5)
--- NOTE | 2024-04-08 15:19 | CT ---
EXAMINATION TYPE: CT abdomen pelvis w con DATE OF EXAM: 04/08/2024 COMPARISON: 04/06/2024 CLINICAL INDICATION: Female, 59 years old with history of abdominal pain. lower. chronic; PHH, abdomi nal pain. lower. chronic TECHNIQUE: Performed without Oral Contrast and with IV Contrast, patient injected with 80ml mL of Isovue 300. CT DLP: 4108.[address] CTDI: mGy Automated exposure control for dose reduction was used. FINDINGS: As on the prior study there multiple innumerable nodules in the lung bases largest which is approxima tely 11 mm. There is no pleural effusion. The gallbladder is normal without distention, wall thickening, pericholecystic fluid or gallstones. T here is no biliary ductal dilatation. There is no focal mass or organomegaly involving the liver, pancreas, spleen or adrenal glands. There is no solid renal mass or hydronephrosis and there is homogeneous contrast enhancement of the r enal parenchyma. The caliber the abdominal aorta is normal is no retroperitoneal adenopathy or hemorr alondra. The bowel loops are normal in caliber and there is no evidence of dilatation or obstruction. No infla mmatory changes are identified in the bowel wall or mesentery. There is no free intraperitoneal air or fluid. No pelvic mass, free fluid, abscess or adenopathy. The osseous structures and soft tissues are intact. IMPRESSION: 1. No acute changes within the abdomen or pelvis. 2. Stable Innumerable pulmonary nodules in the lung bases as described above [facility], , 04/08/2024 3:17 PM
--- NOTE | 2024-04-08 16:07 | ED ---
General Adult HPI - General Chief complaint: Abdominal Pain Stated complaint: abd pain, vomiting Time Seen by Provider: 04/08/24 13:50 Source: patient, RN notes reviewed, old records reviewed Mode of arrival: ambulatory Limitations: no limitations - History of Present Illness Initial comments: Patient is a 59-year-old female presents emergency department complaining of acute on chronic abdominal pain. Has a known history of uterine cancer and is due to have a hysterectomy however her surgeon has been on medical leave for an unknown period of time. Presents today for acute on chronic lower abdominal pain. Has been ongoing since August. States it is worse over the last few days when compared to her chronic symptoms. There is associated dry heaving and nausea. Denies chest pain or shortness of breath. Denies any other acute compl aints. Presents as a revisit. Was seen last week for similar complaints. States it occurred again today. Was feeling improved in between episodes. Has not followed up with her surgeon or other physicians.The pain is a throbbing pain in the suprapubic region. - Related Data Home Medications Medication Instructions Recorded Confirmed ALPRAZolam [Xanax] 0.5 mg PO DAILY PRN 04/08/24 04/08/24 Albuterol Sulfate [Albuterol 2 puff INHALATION RT-QID PRN 04/08/24 04/08/24 Sulfate Hfa] Escitalopram [Lexapro] 10 mg PO DAILY 04/08/24 04/08/24 Famotidine [Pepcid] 20 mg PO BID PRN 04/08/24 04/08/24 Ibuprofen [Motrin Ib] 200 mg PO Q8H PRN 04/08/24 04/08/24 Metoprolol Tartrate [Lopressor] 25 mg PO BID 04/08/24 04/08/24 Simethicone [Gas-X] 125 mg PO QID PRN 04/08/24 04/08/24 buPROPion XL [Wellbutrin XL] 150 mg PO HS 04/08/24 04/08/24 buPROPion XL [Wellbutrin XL] 300 mg PO DAILY 04/08/24 04/08/24 medroxyPROGESTERone [Provera] 10 mg PO HS 04/08/24 04/08/24 Previous Rx's Medication Instructions Recorded HYDROcodone/APAP 5-325MG [[place] 1 tab PO Q6HR PRN 3 Days #12 tab 04/08/24 5-325] Allergies Allergy/AdvReac Type Severity Reaction Status Date / Time acetaminophen Allergy Unknown Verified 04/08/24 14:44 [From Darvocet-N 100] nickel Allergy Unknown Verified 04/08/24 14:44 propoxyphene Allergy Unknown Verified 04/08/24 14:44 [From Darvocet-N 100] sucrose Allergy Unknown Verified 04/08/24 14:44 Review of Systems ROS Statement: Those systems with pertinent positive or pertinent negative responses have been documented in the HPI. Review of Systems: CONST: Denies fever EYES: Denies blurry vision ENT: Denies nasal congestion C/V: Denies Chest pain RESP: Denies shortness of breath GI: Endorses abdominal pain : Denies dysuria SKIN: Denies rash. MSK: Denies joint pain. NEURO: Denies headache ROS Other: All systems not noted in ROS Statement are negative. Past Medical History Past Medical History: Cancer, Hypertension Additional Past Medical History / Comment(s): OCD History of Any Multi-Drug Resistant Organisms: None Reported Past Surgical History: Appendectomy Additional Past Surgical History / Comment(s): D&C, dental surgery Past Psychological History: Depression, Panic Disorder Smoking Status: Current some day smoker Past Alcohol Use History: None Reported Past Drug Use History: None Reported General Exam - General Exam Comments Initial Comments: General: Appears anxious and in mild distress secondary to abdominal pain. HEAD: Normal with no signs of head trauma. EYES: EOMI ENT: Hearing grossly intact, normal oropharynx. RESPIRATORY: Clear breath sounds bilaterally. No wheezes, rales, or rhonchi. C/V: Regular rate and rhythm. S1 and S2 auscultated, no edema, peripheral pulses 2+ and intact throughout ABD: Soft, nondistended. Patient is obese. Mild tenderness to palpation in the suprapubic region with no obvious guarding or rebound tenderness. No peritoneal signs. Exam relatively unremarkable. EXT: No obvious deformity SKIN: No rashes or lesions observed on exposed skin. NEURO: Alert and oriented x 4 Limitations: no limitations Course Vital Signs 04/08/24 04/08/24 04/08/24 13:19 14:17 15:24 Temperature 97.8 F Pulse Rate 72 70 76 Respiratory 18 16 16 Rate Blood Pressure 109/70 149/72 149/72 O2 Sat by Pulse 100 100 99 Oximetry 04/08/24 16:44 Temperature Pulse Rate 74 Respiratory 16 Rate Blood Pressure 141/62 O2 Sat by Pulse 98 Oximetry Medical Decision Making - Medical Decision Making Was pt. sent in by a medical professional or institution (, PA, MANAGER EDUCATIONAL, urgent care, hospital, or halfway...) When possible be specific @ -No Did you speak to anyone other than the patient for history (EMS, parent, family, police, friend...)? What history was obtained from this source @ -No Did you review nursing and triage notes (agree or disagree)? Why? @ -I reviewed and agree with nursing and triage notes Were old charts reviewed (outside hosp., previous admission, EMS record, old E KG, old radiological studies, urgent care reports/EKG's, halfway records)? Report findings @ -Reviewed CT imaging from recent visit on 04/06/24 as well as laboratory studies. Patient has the numerous pulmonary nodules that she is aware of as well as a bulky appearance of the uterus which she is aware of as well, as she does have uterine cancer and is due to have a hysterectomy. Differential Diagnosis (chest pain, altered mental status, abdominal pain women, abdominal pain men, vaginal bleeding, weakness, fever, dyspnea, syncope, headache, dizziness, GI bleed, back pain, seizure, CVA, palpatations, mental health, musculoskeletal)? @ -Differential Abdominal Pain Women: Appendicitis, Cholecystitis, diverticulosis, ischemic bowel, pancreatitis, hepatitis, UTI, gastroenteritis, AAA, incarcerated hernia, bowel obstruction, constipation, inflammatory bowel, hepatitis, peptic ulcer disease, splenic infarction, perforated viscus, vulvitis, ovarian torsion, PID, kidney stone, placenta abruption, this is not meant to be an all-inclusive list EKG interpreted by me (3pts min.). @ -As above X-rays interpreted by me (1pt min.). @ -None done CT interpreted by me (1pt min.). @ -Pelvis reveals no obvious acute intra-abdominal process or changes. Stable pulmonary nodules from prior CT. U/S interpreted by me (1pt. min.). @ -None done What testing was considered but not performed or refused? (CT, X-rays, U/S, labs)? Why? @ -None What meds were considered but not given or refused? Why? @ -None Did you discuss the management of the patient with other professionals (professionals i.e. , PA, MANAGER EDUCATIONAL, lab, RT, psych nurse, social media community manager, lawyer real estate, teacher, low altitude air defense officer, supportive employment case manager)? Give summary @ -No Was smoking cessation discussed for >3mins.? @ -No Was critical care preformed (if so, how long)? @ -No Were there social determinants of health that impacted care today? How? (Homelessness, low income, unemployed, alcoholism, drug addiction, transportation, low edu. Level, literacy, decrease access to med. care, residential, rehab)? @ -No Was there de-escalation of care discussed even if they declined (Discuss DNR or withdrawal of care, Hospice)? DNR status @ -No What co-morbidities impacted this encounter? (DM, HTN, Smoking, COPD, CAD, Cancer, CVA, ARF, Chemo, Hep., AIDS, mental health diagnosis, sleep apnea, morbid obesity)? @ -Chronic abdominal pain with uterine cancer, pulmonary nodule Was patient admitted / discharged? Hospital course, mention meds given and rou te, prescriptions, significant lab abnormalities, going to OR and other pertinent info. @ -Patient presents emergency department with acute on chronic abdominal pain that is worse today compared with other days. She was seen here last week for similar complaints but states it is severe again. Has not followed up with her surgeon. She is due to have a hysterectomy for uterine cancer. Was also found to have pulmonary nodules on last visit. Vital signs are within acceptable limits. Patient will be administered IV analgesia medications, Protonix, Zofran. We will repeat workup. Patient was in agreement this plan. EKG shows no signs of acute ischemia. Laboratory studies are all within a cceptable limits at this time. Urine is still pending. CT imaging shows no obvious acute intra-abdominal process. No obvious changes. Redemonstrates the stable pulmonary nodules. I updated the patient. Symptoms have resolved. Patient was in contact with her surgeon while she was waiting in the emergency department and they were able to arrange for the plan for close follow-up. Patient has no significant pain at this time. Has no other acute complaints at this time. Feels comfortable being discharged home. Strict return precautions discussed.She is aware of the pulmonary nodules. I will provide the patient with a prescription for [place] 5. I instructed the patient to follow up with their PCP in the next 1-3 days.. I explained that the patient should return to the emergency department if they experience any worsening symptoms. Strict return precautions were discussed with the patient. The patient expressed understanding of these instructions. I answered all questions that the patient had. The patient was discharged home in fair condition with their prescriptions and follow up information. Undiagnosed new problem with uncertain prognosis? @ -No Drug Therapy requiring intensive monitoring for toxicity (Heparin, Nitro, Insulin, Cardizem)? @ -No Were any procedures done? @ -No Diagnosis/symptom? @ -Chronic abdominal pain Acute, or Chronic, or Acute on Chronic? @ -Acute on chronic Uncomplicated (without systemic symptoms) or Complicated (systemic symptoms)? @ -Complicated Side effects of treatment? @ -No Exacerbation, Progression, or Severe Exacerbation? @ -No Poses a threat to life or bodily function? How? (Chest pain, [place], MS, pneumonia, PE, COPD, DKA, ARF, appy, cholecystitis, CVA, Diverticulitis, Homicidal, Suicidal, threat to staff... and all critical care pts) @ -Unlikely at this time. Patient's cancer may eventually be life-threatening. - Lab Data Result diagrams: 04/08/24 14:16 04/08/24 14:16 Lab Results 04/08/24 04/08/24 04/08/24 Range/Units 14:16 14:16 14:16 WBC 7.6 (3.8-10.6) k/uL RBC 4.68 (3.80-5.40) m/uL Hgb 12.6 (11.4-16.0) gm/dL Hct 39.4 (34.0-46.0) % MCV 84.0 (80.0-100.0) fL MCH 27.0 (25.0-35.0) pg MCHC 32.1 (31.0-37.0) g/dL RDW 16.6 H (11.5-15.5) % Plt Count 246 (150-450) k/uL MPV 7.9 Neutrophils % 79 % Lymphocytes % 11 % Monocytes % 6 % Eosinophils % 2 % Basophils % 0 % Neutrophils # 6.0 (1.3-7.7) k/uL Lymphocytes # 0.9 L (1.0-4.8) k/uL Monocytes # 0.5 (0-1.0) k/uL Eosinophils # 0.1 (0-0.7) k/uL Basophils # 0.0 (0-0.2) k/uL Hypochromasia Slight Anisocytosis Slight PT 10.8 (10.0-12.5) sec INR 1.0 (<1.2) APTT 23.8 (22.0-30.0) sec Sodium 138 (137-145) mmol/L Potassium 4.6 (3.5-5.1) mmol/L Chloride 111 H (98-107) mmol/L Carbon Dioxide 19 L (22-30) mmol/L Anion Gap 8 mmol/L BUN 20 H (7-17) mg/dL Creatinine 1.33 H (0.52-1.04) mg/dL Est GFR (CKD-EPI)AfAm 50 (>60 ml/min/1.73 sqM) Est GFR (CKD-EPI)NonAf 43 (>60 ml/min/1.73 sqM) Glucose 117 H (74-99) mg/dL Plasma Lactic Acid Jose (0.7-2.0) mmol/L Calcium 10.6 H (8.4-10.2) mg/dL Total Bilirubin 0.5 (0.2-1.3) mg/dL AST 16 (14-36) U/L ALT 12 (4-34) U/L Alkaline Phosphatase 91 (38-126) U/L Total Protein 6.7 (6.3-8.2) g/dL Albumin 3.8 (3.5-5.0) g/dL Amylase 38 (30-110) U/L Lipase 49 (23-300) U/L 04/08/24 Range/Units 14:16 WBC (3.8-10.6) k/uL RBC (3.80-5.40) m/uL Hgb (11.4-16.0) gm/dL Hct (34.0-46.0) % MCV (80.0-100.0) fL MCH (25.0-35.0) pg MCHC (31.0-37.0) g/dL RDW (11.5-15.5) % Plt Count (150-450) k/uL MPV Neutrophils % % Lymphocytes % % Monocytes % % Eosinophils % % Basophils % % Neutrophils # (1.3-7.7) k/uL Lymphocytes # (1.0-4.8) k/uL Monocytes # (0-1.0) k/uL Eosinophils # (0-0.7) k/uL Basophils # (0-0.2) k/uL Hypochromasia Anisocytosis PT (10.0-12.5) sec INR (<1.2) APTT (22.0-30.0) sec Sodium (137-145) mmol/L Potassium (3.5-5.1) mmol/L Chloride (98-107) mmol/L Carbon Dioxide (22-30) mmol/L Anion Gap mmol/L BUN (7-17) mg/dL Creatinine (0.52-1.04) mg/dL Est GFR (CKD-EPI)AfAm (>60 ml/min/1.73 sqM) Est GFR (CKD-EPI)NonAf (>60 ml/min/1.73 sqM) Glucose (74-99) mg/dL Plasma Lactic Acid Jose 1.4 (0.7-2.0) mmol/L Calcium (8.4-10.2) mg/dL Total Bilirubin (0.2-1.3) mg/dL AST (14-36) U/L ALT (4-34) U/L Alkaline Phosphatase (38-126) U/L Total Protein (6.3-8.2) g/dL Albumin (3.5-5.0) g/dL Amylase (30-110) U/L Lipase (23-300) U/L - EKG Data -: EKG Interpreted by Me EKG Comments: 12-lead Electrocardiogram Interpretation Note EKG was reviewed and interpreted by myself. 12-lead ECG performed at 1421 is interpreted by me as revealing normal sinus rhythm at a rate of 63 beats per minute. [place] is normal. [place] interval is 133 ms, QRS durations 82 ms, QTc is 396 ms.. There were no ST or T wave abnormalities to suggest myocardial ischemia or injury. R wave progression across the precordium was satisfactory. By my interpretation this EKG is non-diagnostic for acute ischemia. Disposition Clinical Impression: Chronic abdominal pain, Pulmonary nodules Disposition: HOME SELF-CARE Condition: Fair Instructions (If sedation given, give patient instructions): Abdominal Pain (ED) Additional Instructions: Follow-up with your [facility]IST[facility] for hysterectomy. Return to the emergency department if any worsening symptoms. Follow-up within the next 1 to 3 days. Prescriptions: HYDROcodone/APAP 5-325MG [[place] 5-325] 1 tab PO Q6HR PRN 3 Days #12 tab PRN Reason: Pain Is patient prescribed a controlled substance at d/c from ED?: No Referrals: None,Stated [Primary Care Provider] - 1-2 days Forms: Area PCPs Time of Disposition: 16:07
[2024-04-08] MEDS: ONDANSETRON 4 MG ODT STARTER PACK 2 TAB BTL PO STA (16:42)
[2024-04-08 16:46] VITALS: BP 141/62; PULSE 74
== END 2024-04-08 17:06 | disposition home or self-care (01) ==
LOC: EC 13:17
DX: G89.29 Other chronic pain (principal); R91.1 Solitary pulmonary nodule; F17.200 Nicotine dependence, unspecified, uncomplicated; Z88.6 Allergy status to analgesic agent; Z88.8 Allergy status to other drugs, medicaments and biological substances
CPT/HCPCS: 36415; 93005; 80053; 82150; 83605; 83690; 85025; 85610; 85730; 74177; 99285; 96374; 96375; 96361; J2270; J2405; J1885; S0119; Q9967; J2470

== ENCOUNTER 2024-09-09 07:57 | Inpatient (IN) | payer OTHER ==
[2024-09-09] MEDS: SODIUM CHLORIDE 0.9% 1,000 ML IV ONE (08:52)
[2024-09-09] MEDS: MORPHINE SULFATE 2 MG/ML SYRINGE IVP STA (08:55)
[2024-09-09 09:07] LABS: Basophils # (A) 0.05 10*3/uL (0.00-0.10); Basophils % (A) 0.5 %; Eosinophils % (A) 1.9 %; HCT 45.6 % (37.2-46.3); HGB 14.2 g/dL (12.0-15.0); Lymphocytes # (A) 0.85 10*3/uL (0.90-5.00); Lymphocytes % (A) 8.2 %; MCH 27.7 pg (27.0-32.0); MCHC 31.1 g/dL (32.0-37.0); MCV 89.1 fL (80.0-97.0); Mean Platelet Volume 10.3 fL (9.5-12.2); Monocytes # (A) 0.67 10*3/uL (0.20-1.00); Monocytes % (A) 6.5 %; Neutrophils # (A) 8.55 10*3/uL (1.80-7.70); Neutrophils % (A) 82.4 %; Platelet Count 284 10*3/uL (140-440); RBC 5.12 10*6/uL (4.10-5.20); RDW 15.8 % (11.5-14.5); WBC 10.37 10*3/uL (4.50-10.00)
[2024-09-09 09:15] LABS: INR 1.1 (<1.2); Partial Thromboplastin Time 22.3 sec (22.0-30.0); Prothrombin Time 12.3 sec (10.0-12.5)
[2024-09-09 09:30] LABS: ALT 24 U/L (4-34); African American GFR (CKD) 49 (>60 ml/min/1.73 sqM); Anion Gap 14 mmol/L; Blood Urea Nitrogen 44 mg/dL (7-17); Calcium 12.1 mg/dL (8.4-10.2); Carbon Dioxide 24 mmol/L (22-30); Chloride 112 mmol/L (98-107); Creatine Kinase 164 U/L (30-135); Glucose 146 mg/dL (74-99); Non-African American GFR(CKD) 43 (>60 ml/min/1.73 sqM); Potassium 4.6 mmol/L (3.5-5.1); Sodium 150 mmol/L (137-145); Total Bilirubin 1.3 mg/dL (0.2-1.3); Total Protein 7.3 g/dL (6.3-8.2)
[2024-09-09 09:31] LABS: AST 38 U/L (14-36); Alkaline Phosphatase 68 U/L (38-126); Magnesium 1.9 mg/dL (1.6-2.3)
[2024-09-09 09:32] LABS: Appearance,Urine Cloudy (Clear); Bilirubin,Urine 1+ (Negative); Blood,Urine Trace (Negative); Color,Urine Yellow; Glucose,Urine (UA) Negative (Negative); Ketones,Urine Trace (Negative); Leukocyte Esterase,Urine Negative (Negative); Mucus,Urine Few /hpf; Nitrite,Urine Negative (Negative); Protein,Urine Trace (Negative); RBC,Urine 1 /hpf (0-5); Specific Gravity,Urine 1.029 (1.001-1.035); Squamous Epithelial Cell,Urine 3 /hpf (0-4); WBC,Urine 1 /hpf (0-5)
[2024-09-09 09:33] LABS: Ionized Calcium 6.2 mg/dL (4.5-5.3)
[2024-09-09 09:34] LABS: Lactic Acid, Venous 2.7 mmol/L (0.7-2.0)
[2024-09-09 09:44] LABS: Influenza A Not Detected (Not Detectd); Influenza B Not Detected (Not Detectd); RSV Not Detected (Not Detectd)
--- NOTE | 2024-09-09 09:46 | XR ---
EXAMINATION TYPE: XR chest 2V DATE OF EXAM: 09/09/2024 9:40 AM COMPARISON: Chest radiographs from 10/16/2022, CT abdomen and pelvis 04/08/2024 TECHNIQUE: XR chest 2V Frontal and lateral views of the chest. CLINICAL INDICATION:Female, 59 years old with history of Weakness; FINDINGS: Lungs/Pleura: There is no evidence of pleural effusion or pneumothorax. Right inferior perihilar opac ities with right upper lung 1.6 cm nodular opacity. Left upper lung 2.5 cm ovoid nodular opacity. Add itional retrocardiac 3.0 cm pulmonary nodular opacity. Pulmonary vascularity: Unremarkable. Heart/mediastinum: Cardiomediastinal silhouette is unremarkable. Musculoskeletal: No acute osseous pathology. IMPRESSION: Few new pulmonary nodules identified with right basilar patchy airspace opacities which may represent atelectasis versus infiltrate. Patient had innumerable pulmonary nodules on prior CT abdomen pelvis 04/08/2024. Raises concern for metastatic disease. Recommend further evaluation with CT chest with IV contrast. [facility], , 09/09/2024 9:44 AM
--- NOTE | 2024-09-09 09:54 | CT ---
EXAMINATION TYPE: CT brain wo con DATE OF EXAM: 09/09/2024 9:35 AM COMPARISON: None. CLINICAL INDICATION: Female, 59 years old with history of weakness. TECHNIQUE: Examination was done in axial plane without intravenous contrast. Coronal and sagittal r econstructions performed. CT DLP: 1223.4 mGycm, Automated exposure control for dose reduction was used. FINDINGS: Suspect a 7 mm lesion superior right frontal lobe with surrounding vasogenic edema, axial image 47. Suspect a larger 1.9 cm mass anterior right frontal lobe with a extensive surrounding vasogenic edema resulting in overlying sulcal crowding. Possible 7 mm hemorrhagic lesion posterior right parietal lobe, axial image 28. No herniation, midline shift, or extra-axial fluid collection. No effacement of basal subarachnoid ci sterns. No hydrocephalus. Otherwise, licea-white matter differentiation is maintained. Mild volume loss overlying the bilateral cerebral convexities. Paranasal sinuses and mastoid air cells well pneumatized. The globes are intact. IMPRESSION: 1. Suggestion of a 1.9 cm mass anterior right frontal lobe with extensive surrounding vasogenic edema . No midline shift, herniation, or hydrocephalus. 2. Suspect a second subtle 7 mm lesion superior right frontal lobe. 3. Possible 7 mm hemorrhagic lesion posterior right parietal lobe. 4. Recommend MRI without and with contrast as well as further clinical workup for either primary neop lasm versus metastatic disease. [facility], , 09/09/2024 9:52 AM
[2024-09-09] MEDS: DEXAMETHASONE SOD PHOSPHATE 10 MG/ML 1 ML VIAL IVP STA (10:31)
[2024-09-09] MEDS: SODIUM CHLORIDE 0.9% 1,000 ML IV STA (10:33)
[2024-09-09] MEDS ORDERED: ONDANSETRON 4 MG/2 ML VIAL IVP PRN (10:49)
[2024-09-09] MEDS ORDERED: NALOXONE 0.4 MG/ML 1 ML VIAL IV PRN (10:49)
[2024-09-09] MEDS: levETIRAcetam 500 MG TAB PO SCH (11:31)
[2024-09-09] MEDS: levETIRAcetam IV 500 MG/5 ML VIAL IVP STA (11:31)
[2024-09-09] MEDS ORDERED: ALBUTEROL NEBULIZED 2.5 MG/3 ML INHALATION PRN (11:39)
--- NOTE | 2024-09-09 12:05 | ED ---
General Adult HPI - General Chief complaint: Fall Stated complaint: Weakness Time Seen by Provider: 09/09/24 08:44 Source: patient, EMS, RN notes reviewed, old records reviewed Mode of arrival: EMS Limitations: physical limitation - History of Present Illness Initial comments: Patient is a 59-year-old female presents emergency department for debility. Patient was found down at her home. States she thinks she fell 5 days ago. She describes the fall as sliding out of bed and being unable to stand up. Patient is morbidly obese and is chronically debilitated. States she has been depressed lately. Has mental health history. Also history of uterine cancer. States she has never received treatment for the uterine cancer. Does not seem to be compliant with medications. Presents for further evaluation at this time. Other than stating she feels thirsty she denies any pain or weakness to myself. Presents for further evaluation. - Related Data Home Medications Medication Instructions Recorded Confirmed Albuterol Sulfate [Albuterol 2 puff INHALATION RT-Q4H PRN 04/08/24 09/09/24 Sulfate Hfa] Escitalopram [Lexapro] 10 mg PO DAILY 04/08/24 09/09/24 Ibuprofen [Motrin Ib] 200 mg PO Q8H PRN 04/08/24 09/09/24 Metoprolol Tartrate [Lopressor] 25 mg PO BID 04/08/24 09/09/24 buPROPion XL [Wellbutrin XL] 150 mg PO BID 04/08/24 09/09/24 Famotidine [Pepcid] 10 mg PO BID 09/09/24 09/09/24 busPIRone HCL 5 mg PO BID 09/09/24 09/09/24 Allergies Allergy/AdvReac Type Severity Reaction Status Date / Time acetaminophen Allergy Unknown Verified 09/09/24 11:05 [From Darvocet-N 100] nickel Allergy Unknown Verified 09/09/24 11:05 propoxyphene Allergy Unknown Verified 09/09/24 11:05 [From Darvocet-N 100] sucrose Allergy Unknown Verified 09/09/24 11:05 Review of Systems ROS Statement: Those systems with pertinent positive or pertinent negative responses have been documented in the HPI. Review of Systems: CONST: Denies fever EYES: Denies blurry vision ENT: Denies nasal congestion C/V: Denies Chest pain RESP: Denies shortness of breath GI: Denies abdominal pain : Denies dysuria SKIN: Denies rash. MSK: Denies joint pain. NEURO: Denies headache ROS Other: All systems not noted in ROS Statement are negative. Past Medical History Past Medical History: Cancer, Hypertension Additional Past Medical History / Comment(s): OCD History of Any Multi-Drug Resistant Organisms: None Reported Past Surgical History: Appendectomy Additional Past Surgical History / Comment(s): D&C, dental surgery Past Psychological History: Depression, Panic Disorder Smoking Status: Current some day smoker Past Alcohol Use History: None Reported Past Drug Use History: None Reported General Exam - General Exam Comments Initial Comments: General: Appears in no acute distress. HEAD: Normal with no signs of head trauma. EYES: PERRLA, EOMI, conjunctiva normal, no discharge. Pupils are 3 mm and equal bilaterally. ENT: Hearing grossly intact, normal oropharynx. Dry mucous membranes. RESPIRATORY: Clear breath sounds bilaterally. No wheezes, rales, or rhonchi. C/V: Regular rate and rhythm. S1 and S2 auscultated, no edema, peripheral pulses 2+ and intact throughout ABD: Abd is soft, nontender, nondistended EXT: Normal range of motion, no obvious deformity SKIN: Patient has skin breakdown in her groin region likely from urine that has been collecting there for the last 5 days, also skin breakdown on her right buttock. 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 No focal deficits. Generalized weakness. Limitations: physical limitation Course Vital Signs 09/09/24 09/09/24 09/09/24 08:14 08:34 09:08 Temperature 98.2 F Pulse Rate 115 H 117 H 112 H Respiratory 22 22 20 Rate Blood Pressure 137/120 149/103 140/66 O2 Sat by Pulse 95 97 Oximetry 09/09/24 09/09/24 09/09/24 10:00 10:33 11:00 Temperature 98 F Pulse Rate 111 H 113 H 101 H Respiratory 18 18 18 Rate Blood Pressure 157/89 157/89 122/95 O2 Sat by Pulse Oximetry 09/09/24 09/09/24 09/09/24 12:00 13:00 14:00 Temperature 97.7 F Pulse Rate 105 H 103 H 89 Respiratory 18 18 18 Rate Blood Pressure 133/88 130/93 147/89 O2 Sat by Pulse 94 L 94 L Oximetry Medical Decision Making - Medical Decision Making Was pt. sent in by a medical professional or institution (MARTHA Saul, TIE KNITTER HELPER, urgent care, hospital, or fdc...) When possible be specific @ -No Did you speak to anyone other than the patient for history (EMS, parent, family, police, friend...)? What history was obtained from this source @ -No Did you review nursing and triage notes (agree or disagree)? Why? @ -I reviewed and agree with nursing and triage notes Were old charts reviewed (outside hosp., previous admission, EMS record, old EKG, old radiological studies, urgent care reports/EKG's, fdc records)? Report findings @ -Reviewed chart from April 2024 confirming patient's history of known e[place]na rine cancer. Differential Diagnosis (chest pain, altered mental status, abdominal pain women, abdominal pain men, vaginal bleeding, weakness, fever, dyspnea, syncope, headache, dizziness, GI bleed, back pain, seizure, CVA, palpatations, mental health, musculoskeletal)? @ -Differential Weakness: Hypoglycemia, shock, sepsis, hyponatremia, anemia, infection, [place], ETOH, adverse medicine reaction, overdose, stroke, this is not meant to be an all-inclusive list. EKG interpreted by me (3pts min.). @ -As above X-rays interpreted by me (1pt min.). @ -Chest x-ray reveals no obvious acute cardiopulmonary process. Pulmonary nodules present concerning for metastatic disease which is chronic finding. CT interpreted by me (1pt min.). @ -Brain CT reveals multiple brain metastasis. One of them has some surrounding vasogenic edema. One of them may be hemorrhagic. No midline shift or mass effect present. U/S interpreted by me (1pt. min.). @ -None done What testing was considered but not performed or refused? (CT, X-rays, U/S, labs)? Why? @ -None What meds were considered but not given or refused? Why? @ -None Did you discuss the management of the patient with other professionals (jacob gonzalez i.e. MARTHA Saul, TIE KNITTER HELPER, lab, RT, psych nurse, social media community manager, pigment presser, teacher, business liaison officer, case finishing machine adjuster)? Give summary @ -I discussed the case with Dr. Zhao of neurology who is in agreement with plan for admission and plan for IV steroids as well as initiating Keppra therapy. Recommended oncology evaluation. I discussed the case with the admitting provider, Dr. Chawla of [facility] who accepted the admission. Was smoking cessation discussed for >3mins.? @ -No Was critical care preformed (if so, how long)? @ -No Were there social determinants of health that impacted care today? How? (Homelessness, low income, unemployed, alcoholism, drug addiction, transportation, low edu. Level, literacy, decrease access to med. care, skilled nursing, rehab)? @ -No Was there de-escalation of care discussed even if they declined (Discuss DNR or withdrawal of care, Hospice)? DNR status @ -No What co-morbidities impacted this encounter? (DM, HTN, Smoking, COPD, CAD, Cancer, CVA, ARF, Chemo, Hep., AIDS, mental health diagnosis, sleep apnea, morbid obesity)? @ -None Was patient admitted / discharged? Hospital course, mention meds given and route, prescriptions, significant lab abnormalities, going to OR and other pertinent info. @ -Based on patient's presentation and physical exam, presents emergency department for debility. Has been down on her floor at home for 5 days. No obvious injuries but we will obtain CT brain due to the weakness as well as general workup. She was in agreement this plan. Given IV fluids. EKG shows no signs of acute ischemia. Laboratory studies are remarkable for hypernatremia of 150, hyperchloremia of 112. Elevated lactic acid of 2.7 likely related to dehydration. Mild hypercalcemia likely related to dehydration possible malignancy. Urinalysis unremarkable. Viral swabs negative. Chest x- ray unremarkable. CT imaging does show multiple metastatic lesions in the brain with vasogenic edema around one of them without any evidence of midline shift or mass effect. Patient was initiated on steroid therapy. I did discuss with the patient and she is aware of the metastatic lesions on her brain. She is a poor historian with poor medical literacy and therefore we will obtain consults with both oncology as well as neurology. I did speak with Dr. Zhao of neurology who is in agreement the plan. I spoke with the admitting provider, Dr. Chawla who accepted the admission. Undiagnosed new problem with uncertain prognosis? @ -No Drug Therapy requiring intensive monitoring for toxicity (Heparin, Nitro, Insulin, Cardizem)? @ -No Were any procedures done? @ -No Diagnosis/symptom? @ -Weakness, debility, dehydration, metastatic brain lesions Acute, or Chronic, or Acute on Chronic? @ -Acute Uncomplicated (without systemic symptoms) or Complicated (systemic symptoms)? @ -Complicated Side effects of treatment? @ -No Exacerbation, Progression, or Severe Exacerbation? @ -No Poses a threat to life or bodily function? How? (Chest pain, [place], [place], pneumonia, PE, COPD, DKA, ARF, appy, cholecystitis, CVA, Diverticulitis, Homicidal, Suici hermann, threat to staff... and all critical care pts) @ -Yes - Lab Data Result diagrams: 09/09/24 08:44 09/09/24 08:44 Lab Results 09/09/24 09/09/24 09/09/24 Range/Units 08:44 08:44 08:44 WBC 10.37 H (4.50-10.00) 10*3/uL RBC 5.12 (4.10-5.20) 10*6/uL Hgb 14.2 (12.0-15.0) g/dL Hct 45.6 (37.2-46.3) % MCV 89.1 (80.0-97.0) fL MCH 27.7 (27.0-32.0) pg MCHC 31.1 L (32.0-37.0) g/dL Plt Count 284 (140-440) 10*3/uL MPV 10.3 (9.5-12.2) fL Immature Gran % (Auto) 0.5 % Neutrophils % 82.4 % Lymphocytes % 8.2 % Monocytes % 6.5 % Eosinophils % 1.9 % Basophils % 0.5 % Immature Gran # 0.05 H (0.00-0.04) 10*3/uL Neutrophils # 8.55 H (1.80-7.70) 10*3/uL Lymphocytes # 0.85 L (0.90-5.00) 10*3/uL Monocytes # 0.67 (0.20-1.00) 10*3/uL Eosinophils # 0.20 (0.04-0.35) 10*3/uL Basophils # 0.05 (0.00-0.10) 10*3/uL PT 12.3 (10.0-12.5) sec INR 1.1 (<1.2) APTT 22.3 (22.0-30.0) sec Sodium 150 H (137-145) mmol/L Potassium 4.6 (3.5-5.1) mmol/L Chloride 112 H (98-107) mmol/L Carbon Dioxide 24 (22-30) mmol/L Anion Gap 14 mmol/L BUN 44 H (7-17) mg/dL Creatinine 1.35 H (0.52-1.04) mg/dL Est GFR (CKD-EPI)AfAm 49 (>60 ml/min/1.73 sqM) Est GFR (CKD-EPI)NonAf 43 (>60 ml/min/1.73 sqM) Glucose 146 H (74-99) mg/dL Lactic Ac Sepsis Rflx Plasma Lactic Acid Jose (0.7-2.0) mmol/L Calcium 12.1 H (8.4-10.2) mg/dL Ionized Calcium Esperanza 6.2 H* (4.5-5.3) mg/dL Phosphorus (2.5-4.5) mg/dL Magnesium 1.9 (1.6-2.3) mg/dL Total Bilirubin 1.3 (0.2-1.3) mg/dL AST 38 H (14-36) U/L ALT 24 (4-34) U/L Alkaline Phosphatase 68 (38-126) U/L Ammonia (<30) umol/L Creatine Kinase 164 H (30-135) U/L Total Protein 7.3 (6.3-8.2) g/dL Albumin 4.0 (3.5-5.0) g/dL TSH 2.050 (0.465-4.680) mIU/L Urine Color Urine Appearance (Clear) Urine pH (5.0-8.0) Ur Specific [place] (1.001-1.035) Urine Protein (Negative) Urine Glucose (UA) (Negative) Urine Ketones (Negative) Urine Blood (Negative) Urine Nitrite (Negative) Urine Bilirubin (Negative) Urine Urobilinogen (<2.0) mg/dL Ur Leukocyte Esterase (Negative) Urine RBC (0-5) /hpf Urine WBC (0-5) /hpf Ur Squamous Epith Cells (0-4) /hpf Urine Mucus (None) /hpf Influenza Type A (PCR) (Not Detectd) Influenza Type B (PCR) (Not Detectd) RSV (PCR) (Not Detectd) SARS-CoV-2 (PCR) (Not Detectd) Group A Strep (PCR) (Not Detectd) 09/09/24 09/09/24 09/09/24 Range/Units 08:44 08:44 08:44 WBC (4.50-10.00) 10*3/uL RBC (4.10-5.20) 10*6/uL Hgb (12.0-15.0) g/dL Hct (37.2-46.3) % MCV (80.0-97.0) fL MCH (27.0-32.0) pg MCHC (32.0-37.0) g/dL Plt Count (140-440) 10*3/uL MPV (9.5-12.2) fL Immature Gran % (Auto) % Neutrophils % % Lymphocytes % % Monocytes % % Eosinophils % % Basophils % % Immature Gran # (0.00-0.04) 10*3/uL Neutrophils # (1.80-7.70) 10*3/uL Lymphocytes # (0.90-5.00) 10*3/uL Monocytes # (0.20-1.00) 10*3/uL Eosinophils # (0.04-0.35) 10*3/uL Basophils # (0.00-0.10) 10*3/uL PT (10.0-12.5) sec INR (<1.2) APTT (22.0-30.0) sec Sodium (137-145) mmol/L Potassium (3.5-5.1) mmol/L Chloride (98-107) mmol/L Carbon Dioxide (22-30) mmol/L Anion Gap mmol/L BUN (7-17) mg/dL Creatinine (0.52-1.04) mg/dL Est GFR (CKD-EPI)AfAm (>60 ml/min/1.73 sqM) Est GFR (CKD-EPI)NonAf (>60 ml/min/1.73 sqM) Glucose (74-99) mg/dL Lactic Ac Sepsis Rflx Plasma Lactic Acid Jose 2.7 H* (0.7-2.0) mmol/L Calcium (8.4-10.2) mg/dL Ionized Calcium Esperanza (4.5-5.3) mg/dL Phosphorus (2.5-4.5) mg/dL Magnesium (1.6-2.3) mg/dL Total Bilirubin (0.2-1.3) mg/dL AST (14-36) U/L ALT (4-34) U/L Alkaline Phosphatase (38-126) U/L Ammonia <9 (<30) umol/L Creatine Kinase (30-135) U/L Total Protein (6.3-8.2) g/dL Albumin (3.5-5.0) g/dL TSH (0.465-4.680) mIU/L Urine Color Urine Appearance (Clear) Urine pH (5.0-8.0) Ur Specific [place] (1.001-1.035) Urine Protein (Negative) Urine Glucose (UA) (Negative) Urine Ketones (Negative) Urine Blood (Negative) Urine Nitrite (Negative) Urine Bilirubin (Negative) Urine Urobilinogen (<2.0) mg/dL Ur Leukocyte Esterase (Negative) Urine RBC (0-5) /hpf Urine WBC (0-5) /hpf Ur Squamous Epith Cells (0-4) /hpf Urine Mucus (None) /hpf Influenza Type A (PCR) Not Detected (Not Detectd) Influenza Type B (PCR) Not Detected (Not Detectd) RSV (PCR) Not Detected (Not Detectd) SARS-CoV-2 (PCR) Not Detected (Not Detectd) Group A Strep (PCR) NOT DETECTED (Not Detectd) 09/09/24 09/09/24 09/09/24 Range/Units 08:44 09:05 09:34 WBC (4.50-10.00) 10*3/uL RBC (4.10-5.20) 10*6/uL Hgb (12.0-15.0) g/dL Hct (37.2-46.3) % MCV (80.0-97.0) fL MCH (27.0-32.0) pg MCHC (32.0-37.0) g/dL Plt Count (140-440) 10*3/uL MPV (9.5-12.2) fL Immature Gran % (Auto) % Neutrophils % % Lymphocytes % % Monocytes % % Eosinophils % % Basophils % % Immature Gran # (0.00-0.04) 10*3/uL Neutrophils # (1.80-7.70) 10*3/uL Lymphocytes # (0.90-5.00) 10*3/uL Monocytes # (0.20-1.00) 10*3/uL Eosinophils # (0.04-0.35) 10*3/uL Basophils # (0.00-0.10) 10*3/uL PT (10.0-12.5) sec INR (<1.2) APTT (22.0-30.0) sec Sodium (137-145) mmol/L Potassium (3.5-5.1) mmol/L Chloride (98-107) mmol/L Carbon Dioxide (22-30) mmol/L Anion Gap mmol/L BUN (7-17) mg/dL Creatinine (0.52-1.04) mg/dL Est GFR (CKD-EPI)AfAm (>60 ml/min/1.73 sqM) Est GFR (CKD-EPI)NonAf (>60 ml/min/1.73 sqM) Glucose (74-99) mg/dL Lactic Ac Sepsis Rflx Y Plasma Lactic Acid Jose (0.7-2.0) mmol/L Calcium (8.4-10.2) mg/dL Ionized Calcium Esperanza (4.5-5.3) mg/dL Phosphorus 2.0 L (2.5-4.5) mg/dL Magnesium (1.6-2.3) mg/dL Total Bilirubin (0.2-1.3) mg/dL AST (14-36) U/L ALT (4-34) U/L Alkaline Phosphatase (38-126) U/L Ammonia (<30) umol/L Creatine Kinase (30-135) U/L Total Protein (6.3-8.2) g/dL Albumin (3.5-5.0) g/dL TSH (0.465-4.680) mIU/L Urine Color Yellow Urine Appearance Cloudy H (Clear) Urine pH 5.0 (5.0-8.0) Ur Specific [place] 1.029 (1.001-1.035) Urine Protein Trace H (Negative) Urine Glucose (UA) Negative (Negative) Urine Ketones Trace H (Negative) Urine Blood Trace H (Negative) Urine Nitrite Negative (Negative) Urine Bilirubin 1+ H (Negative) Urine Urobilinogen 3.0 (<2.0) mg/dL Ur Leukocyte Esterase Negative (Negative) Urine RBC 1 (0-5) /hpf Urine WBC 1 (0-5) /hpf Ur Squamous Epith Cells 3 (0-4) /hpf Urine Mucus Few H (None) /hpf Influenza Type A (PCR) (Not Detectd) Influenza Type B (PCR) (Not Detectd) RSV (PCR) (Not Detectd) SARS-CoV-2 (PCR) (Not Detectd) Group A Strep (PCR) (Not Detectd) - EKG Data -: EKG Interpreted by Me EKG Comments: 12-lead Electrocardiogram Interpretation Note EKG was reviewed and interpreted by myself. 12-lead ECG performed at 0811 is interpreted by me as revealing sinus tachycardia at a rate of 113 beats per minute. Brandeis is normal. SD interval is 111 ms, QRS durations 91 ms, QTc is 389 ms.. There were no ST or T wave abnormalities to suggest myocardial ischemia or injury. R wave progression across the precordium was satisfactory. By my interpretation this EKG is non-diagnostic for acute ischemia. Disposition Clinical Impression: Weakness, Debility, Metastasis to brain Disposition: ADMITTED IP TO THIS HOSP Condition: Stable Time of Disposition: 10:49
[2024-09-09] MEDS: ESCITALOPRAM 10 MG TAB PO SCH (12:58)
[2024-09-09] MEDS: METOPROLOL TARTRATE 25 MG TAB PO SCH (12:58)
[2024-09-09] MEDS: buPROPion XL 150 MG TAB.ER.24H PO SCH (12:58)
[2024-09-09] MEDS: busPIRone HCl 5 MG TAB PO SCH (12:58)
--- NOTE | 2024-09-09 13:34 | P.HPIM ---
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 Patient states 6 days ago, while getting out of bed, she slipped on her carpet, fell, and landed on her buttocks. She states she was unable to get up and tried calling for help. She says she or her boyfriend 1 month ago and is currently living at home by herself. She states she has been down for the past 6 days. She was eventually able to get hold of the police and EMS where she was ultimately brought in. She states she has not had much to eat or drink during these past few days. She admits to some nausea and says she feels warm like she is having a fever. She admits to sore throat. Denies any chills, headache, shortness of breath, chest pain, abdominal pain, urinary symptoms, suicidal/homicidal ideation. Social history: Tobacco: Few cigarettes on occasion Alcohol: Denies alcohol use Recreational drugs: Denies illicit drug use Travel: No recent travel Occupation: Works from home with [employer] EKG independently interpreted displaying sinus tachycardia, rate 113 bpm, QTc 389 ms CXR independently interpreted displaying pulmonary nodules with right patchy airspace opacities Brain CT displaying 1.9 cm mass anterior right frontal lobe with extensive surrounding vasogenic edema, second septal 7 mm lesion superior right frontal lobe, possible 7 mm hemorrhagic lesion posterior right parietal lobe Calcium 12.1, ionized calcium 6.2, phosphorus 2.0, sodium 150, BUN 44, creatinine 1.35, creatinine kinase 164, AST 38, ALT 24, alk phos 68, WBC 10.37 UA displaying trace urine blood, urine protein, and urine ketones, 1+ bilirubin Cepheid 4 Plex unremarkable for influenza type A/B, RSV, SARS-CoV-2 Group A strep negative T 98.2F, SD 115, RR 22, BP 137/120, oxygen saturation 95% on room air ED documentation reviewed. Review of systems: Pertinent positives and negatives as discussed in HPI, a complete review of systems was performed and all other systems are negative. Physical examination: Vital signs reviewed General: non toxic, no distress, appears at stated age, morbidly obese Derm: Multiple excoriations found across body, b/l LE venous stasis dermatitis Head: atraumatic, normocephalic, symmetric Eyes: EOMI, anicteric sclera ENT: Nose and ears atraumatic Neck: Nodule located on left anterior neck Cardiovascular: S1S2 reg, no murmur, positive dorsalis pedis pulse bilateral, lymphedema Lungs: CTA bilateral, no rhonchi, no rales, no accessory muscle use Abdominal: soft, non-tender to palpation, no guarding Ext: muscle strength 4 out of 5 in all 4 extremities grossly, no gross muscle atrophy Neuro: CN II-XI grossly intact, no gross focal neuro deficits Psych: Alert, oriented to person, place, and time Assessment/Plan: Patient is a 59-year-old female with cancer, depression and hypertension presenting with fall in the setting of generalized weakness and brains metastasis. #. Fall in the setting of brain metastasis w/vasogenic edema #. History of uriterine cancer with brain and lung mets #. Weakness/debility #. Mobidlly Obese CT brain reviewed as above CXR reviewed as above Decadron 6 mg IVP every 6 hours Keppra 500 mg PO q12hr Patient states she had recent PET scan done at [facility] States she was previously taking medroxyprogesterone but states she ran out EEG, MRI brain w/wo contrasted ordered Seizure and Fall Precautions, Neurochecks PT/OT consulted Oncology consulted Neurology consulted #. LINWOOD on CKD stage IIIa, in setting of dehyrdation #. Mild hypercalcemia #. Hypovolemic hypernatremia #. Mild hypophosphatemia #. Lactic acidosis Calcium on admission 12.1, corrected calcium 12.1, ionized calcium 6.2 Na 150 on admission Status post 1 L bolus in ED Aggressive fluid management with LR at 200 cc/an hour BMP q4-6hrs Serum osmolality, urine osmolality, urine lytes ordered PTH, PTHrp, vit d, 1,25-dihydroxy ordered Cardiac telemetry Consider nephrology consult Chronic: #. Hypertension: Continue metoprolol 25 mg p.o. twice daily #. Anxiety/depression/OCD: Denies any suicidal or homicidal ideation, continue with Lexapro 10 mg PO QD, Wellbutrin 150 mg PO BID, buspirone 5 mg PO BID #. GERD: Pepcid 10 mg p.o. twice daily #. Asthma: Albuterol inhaler every 4 hours as needed DVT prophylaxis: Heparin 5000 unit SQ q 8 hours The patient is admitted with an anticipated less than 2 midnight stay for evaluation of generalized weakness. CODE STATUS: Full Code Discussed with: Patient Anticipated discharge place: Pending clinical course Kennedy Jc MD PGY-1 IM Dictation was produced using [employer] dictation software. please excuse any grammatical, word or spelling errors. I saw and evaluated the patient during the bess and critical portions of this encounter, and discussed the case in detail with the resident author of this note, I agree with the Assessment and Plan, and my changes, if any, are highlighted in blue. Past Medical History Past Medical History: Cancer, Hypertension Additional Past Medical History / Comment(s): OCD History of Any Multi-Drug Resistant Organisms: None Reported Past Surgical History: Appendectomy Additional Past Surgical History / Comment(s): D&C, dental surgery Past Psychological History: Depression, Panic Disorder Smoking Status: Current some day smoker Past Alcohol Use History: None Reported Past Drug Use History: None Reported Medications and Allergies Home Medications Medication Instructions Recorded Confirmed Type Albuterol Sulfate [Albuterol 2 puff INHALATION RT-Q4H PRN 04/08/24 09/09/24 History Sulfate Hfa] Escitalopram [Lexapro] 10 mg PO DAILY 04/08/24 09/09/24 History Ibuprofen [Motrin Ib] 200 mg PO Q8H PRN 04/08/24 09/09/24 History Metoprolol Tartrate [Lopressor] 25 mg PO BID 04/08/24 09/09/24 History buPROPion XL [Wellbutrin XL] 150 mg PO BID 04/08/24 09/09/24 History Famotidine [Pepcid] 10 mg PO BID 09/09/24 09/09/24 History busPIRone HCL 5 mg PO BID 09/09/24 09/09/24 History Allergies Allergy/AdvReac Type Severity Reaction Status Date / Time acetaminophen Allergy Unknown Verified 09/09/24 11:05 [From Darvocet-N 100] nickel Allergy Unknown Verified 09/09/24 11:05 propoxyphene Allergy Unknown Verified 09/09/24 11:05 [From Darvocet-N 100] sucrose Allergy Unknown Verified 09/09/24 11:05 Physical Exam Osteopathic Statement: *. No significant issues noted on an osteopathic structural exam other than those noted in the History and Physical/Consult. Vitals: Vital Signs Temp Pulse Resp BP Pulse Ox 09/09/24 10:00 111 H 18 157/89 09/09/24 09:08 112 H 20 140/66 97 09/09/24 08:34 117 H 22 149/103 09/09/24 08:14 98.2 F 115 H 22 137/120 95 Intake and Output 09/08/24 09/09/24 09/09/24 22:59 06:59 14:59 Other: Weight 184.612 kg Results CBC & Chem 7: 09/09/24 08:44 09/09/24 08:44 Labs: Abnormal Lab Results - Last 24 Hours (Table) 09/09/24 09/09/24 09/09/24 Range/Units 08:44 08:44 08:44 WBC 10.37 H (4.50-10.00) 10*3/uL MCHC 31.1 L (32.0-37.0) g/dL Immature Gran # 0.05 H (0.00-0.04) 10*3/uL Neutrophils # 8.55 H (1.80-7.70) 10*3/uL Lymphocytes # 0.85 L (0.90-5.00) 10*3/uL Sodium 150 H (137-145) mmol/L Chloride 112 H (98-107) mmol/L BUN 44 H (7-17) mg/dL Creatinine 1.35 H (0.52-1.04) mg/dL Glucose 146 H (74-99) mg/dL Plasma Lactic Acid Jose 2.7 H* (0.7-2.0) mmol/L Calcium 12.1 H (8.4-10.2) mg/dL Ionized Calcium Esperanza 6.2 H* (4.5-5.3) mg/dL AST 38 H (14-36) U/L Creatine Kinase 164 H (30-135) U/L Urine Appearance (Clear) Urine Protein (Negative) Urine Ketones (Negative) Urine Blood (Negative) Urine Bilirubin (Negative) Urine Mucus (None) /hpf 09/09/24 Range/Units 09:05 WBC (4.50-10.00) 10*3/uL MCHC (32.0-37.0) g/dL Immature Gran # (0.00-0.04) 10*3/uL Neutrophils # (1.80-7.70) 10*3/uL Lymphocytes # (0.90-5.00) 10*3/uL Sodium (137-145) mmol/L Chloride (98-107) mmol/L BUN (7-17) mg/dL Creatinine (0.52-1.04) mg/dL Glucose (74-99) mg/dL Plasma Lactic Acid Jose (0.7-2.0) mmol/L Calcium (8.4-10.2) mg/dL Ionized Calcium Esperanza (4.5-5.3) mg/dL AST (14-36) U/L Creatine Kinase (30-135) U/L Urine Appearance Cloudy H (Clear) Urine Protein Trace H (Negative) Urine Ketones Trace H (Negative) Urine Blood Trace H (Negative) Urine Bilirubin 1+ H (Negative) Urine Mucus Few H (None) /hpf
[2024-09-09] MEDS: LACTATED RINGERS 1,000 ML IV SCH (15:13)
[2024-09-09 16:29] LABS: African American GFR (CKD) 49 (>60 ml/min/1.73 sqM); Anion Gap 10 mmol/L; Blood Urea Nitrogen 42 mg/dL (7-17); Calcium 11.5 mg/dL (8.4-10.2); Carbon Dioxide 25 mmol/L (22-30); Chloride 107 mmol/L (98-107); Glucose 133 mg/dL (74-99); Non-African American GFR(CKD) 42 (>60 ml/min/1.73 sqM); Potassium 4.3 mmol/L (3.5-5.1); Sodium 142 mmol/L (137-145)
[2024-09-09] MEDS: HEPARIN SODIUM,PORCINE 5,000 UNIT/ML 1 ML VIAL SQ SCH (16:56)
[2024-09-09] MEDS: DEXAMETHASONE SOD PHOSPHATE 4 MG/ML 1 ML VIAL IVP SCH (16:56)
--- NOTE | 2024-09-09 17:51 | P.CNNES ---
History of Present Illness Consult date: 09/09/24 Requesting physician: Aiden Brar Reason for Consult: brain mets History of Present Illness: This is a 59-year-old woman with a history of urine cancer with mets to liver, lung status post D&C and currently on chemotherapy who presents the emergency department after a fall. She stated that today early in the morning she woke up and she tried getting out of bed but her foot got tangled with the carpet and she slid and landed on her buttocks but did not pass out. She denies any focal weakness prior or after the episode. Denies losing consciousness and she denies any jerking of any extremities. Denies any speech difficulty, any new visual disturbance. She stated that she has known history of urine cancer with mets to the liver brain and had a PET scan. She denies any history of seizures. She has impaired vision out of the right eye as a result of the brain mets. She follows up with oncology team over [facility]. Some of the workup during this hospital visit consisted of: I reviewed the lab workup. CT of the head is reported as suggestion of 1.9 cm anterior right frontal with extensive surrounding vasogenic edema. No midline shift, herniation or hydrocephalus. Suspect a second septal 7 mm lesion superior right frontal lobe. Possible 7 mm hemorrhagic lesion posterior right parietal lobe. Recommend MRI with and without as well as further clinical workup for either primary neoplasm versus metastatic disease. I personally reviewed the CT of the head and I agree the patient has brain mass over the right frontal with vasogenic edema.. Review of Systems As per HPI. Past Medical History Past Medical History: Cancer, Hypertension Additional Past Medical History / Comment(s): OCD History of Any Multi-Drug Resistant Organisms: None Reported Past Surgical History: Appendectomy Additional Past Surgical History / Comment(s): D&C, dental surgery Past Psychological History: Depression, Panic Disorder Smoking Status: Current some day smoker Past Alcohol Use History: None Reported Past Drug Use History: None Reported Medications and Allergies Home Medications Medication Instructions Recorded Confirmed Type Albuterol Sulfate [Albuterol 2 puff INHALATION RT-Q4H PRN 04/08/24 09/09/24 History Sulfate Hfa] Escitalopram [Lexapro] 10 mg PO DAILY 04/08/24 09/09/24 History Ibuprofen [Motrin Ib] 200 mg PO Q8H PRN 04/08/24 09/09/24 History Metoprolol Tartrate [Lopressor] 25 mg PO BID 04/08/24 09/09/24 History buPROPion XL [Wellbutrin XL] 150 mg PO BID 04/08/24 09/09/24 History Famotidine [Pepcid] 10 mg PO BID 09/09/24 09/09/24 History busPIRone HCL 5 mg PO BID 09/09/24 09/09/24 History Allergies Allergy/AdvReac Type Severity Reaction Status Date / Time acetaminophen Allergy Unknown Verified 09/09/24 11:05 [From Darvocet-N 100] nickel Allergy Unknown Verified 09/09/24 11:05 propoxyphene Allergy Unknown Verified 09/09/24 11:05 [From Darvocet-N 100] sucrose Allergy Unknown Verified 09/09/24 11:05 Physical Examination - Vital Signs Vital Signs: Vital Signs Temp Pulse Resp BP Pulse Ox 09/09/24 14:00 89 18 147/89 94 L 09/09/24 13:00 97.7 F 103 H 18 130/93 94 L 09/09/24 12:00 105 H 18 133/88 09/09/24 11:00 98 F 101 H 18 122/95 09/09/24 10:33 113 H 18 157/89 09/09/24 10:00 111 H 18 157/89 09/09/24 09:08 112 H 20 140/66 97 09/09/24 08:34 117 H 22 149/103 09/09/24 08:14 98.2 F 115 H 22 137/120 95 Intake and Output 09/09/24 09/09/24 09/09/24 06:59 14:59 22:59 Other: Weight 184.612 kg GENERAL: The patient is lying in bed and is not in acute distress. Patient is morbidly obese. NEUROLOGICAL: Higher mental function: The patient is awake, alert, oriented to self, place and time. Patient is following commands. No aphasia and no neglect. Cranial nerves: The pupils are round, equal and reactive to light. Visual hutchins is full out of the left eye but has severe poor vision out of the right eye and that is chronic. Facial sensation is normal to touch throughout. The facial strength is normal throughout. Hearing is normal bilaterally to hand rub. Tongue is midline and moved [id number] without any difficulty. No dysarthria is noted. Shoulder shrug is normal bilaterally. Motor: The strength is 5 over 5 throughout uppers. While lowers are limited but has antigravity. Cerebellum: Normal finger to nose bilaterally. Sensation: Sensation is normal to touch throughout. Reflexes (right/left): Hard to assess because of body habits. Results - Laboratory Findings CBC and BMP: 09/09/24 08:44 09/09/24 15:58 Abnormal Lab Findings: Abnormal Labs 09/09/24 09/09/24 09/09/24 08:44 08:44 08:44 WBC 10.37 H MCHC 31.1 L Immature Gran # 0.05 H Neutrophils # 8.55 H Lymphocytes # 0.85 L Sodium 150 H Chloride 112 H BUN 44 H Creatinine 1.35 H Glucose 146 H Plasma Lactic Acid Jose 2.7 H* Calcium 12.1 H Ionized Calcium Esperanza 6.2 H* Phosphorus AST 38 H Creatine Kinase 164 H Urine Appearance Urine Protein Urine Ketones Urine Blood Urine Bilirubin Urine Mucus 09/09/24 09/09/24 09/09/24 08:44 09:05 15:58 WBC MCHC Immature Gran # Neutrophils # Lymphocytes # Sodium Chloride BUN 42 H Creatinine 1.36 H Glucose 133 H Plasma Lactic Acid Jose Calcium 11.5 H Ionized Calcium Esperanza Phosphorus 2.0 L AST Creatine Kinase Urine Appearance Cloudy H Urine Protein Trace H Urine Ketones Trace H Urine Blood Trace H Urine Bilirubin 1+ H Urine Mucus Few H Assessment and Plan Assessment: This is a 59-year-old woman who presents to the emergency department because of a fall at home. It seems that she got out of bed and her foot got tangled with her carpet and as a result she fell on her buttocks region and did not have any focal deficit or did not lose consciousness. She has known history of uterine cancer with mets to the liver and brain. Fall and it appears mechanical. Brain mets with vasogenic edema. History of uterine cancer with mets to liver and brain status post D&C Acute kidney injury Hypercalcemia Hypophosphatemia Morbid Obesity Plan: Patient was started on Decadron 6 mg every 6 hours with a 10 mg IV once. I will defer the modification of the Decadron to the oncology team Patient was started on Keppra 500 mg every 12 hours with a loading of 1500 mg once for concern for possible seizure that led to her fall but from the history does not appear like a seizure and her preliminary EEG is negative for any seizures. Patient does not want to be on any antiseizure medication. MRI of the brain with and without is ordered and is pending Oncology team is consulted Patient is known to [facility] Oncology team. PT and OT are consulted Will defer the rest of the medical management to primary team and other specialist Plan discussed with the patient, primary team. Thank you for the consultation Time with Patient: Greater than 30
[2024-09-09] MEDS: FAMOTIDINE 20 MG TAB PO SCH (20:40)
[2024-09-09] MEDS: NYSTATIN 100,000 UNIT/GM POWD 15 GM TOPICAL SCH (22:06)
[2024-09-10 06:12] LABS: ALT 19 U/L (4-34); AST 21 U/L (14-36); African American GFR (CKD) 62 (>60 ml/min/1.73 sqM); Albumin/Globulin Ratio 1.1; Alkaline Phosphatase 61 U/L (38-126); Anion Gap 8 mmol/L; Blood Urea Nitrogen 40 mg/dL (7-17); Calcium 10.8 mg/dL (8.4-10.2); Carbon Dioxide 22 mmol/L (22-30); Chloride 110 mmol/L (98-107); Globulin 2.7 g/dL; Glucose 116 mg/dL (74-99); Magnesium 1.7 mg/dL (1.6-2.3); Non-African American GFR(CKD) 54 (>60 ml/min/1.73 sqM); Potassium 4.3 mmol/L (3.5-5.1); Sodium 140 mmol/L (137-145); Total Bilirubin 0.6 mg/dL (0.2-1.3); Total Protein 5.7 g/dL (6.3-8.2)
[2024-09-10 08:37] LABS: Basophils # (A) 0.01 X 10*3/uL (0.00-0.10); Basophils % (A) 0.1 %; Eosinophils # (A) 0 X 10*3/uL (0.04-0.35); Eosinophils % (A) 0 %; HCT 38.6 % (37.2-46.3); HGB 11.9 g/dL (12.0-15.0); Lymphocytes # (A) 0.65 X 10*3/uL (0.90-5.00); Lymphocytes % (A) 9.2 %; MCH 27.4 pg (27.0-32.0); MCHC 30.8 g/dL (32.0-37.0); MCV 88.9 FL (80.0-97.0); Mean Platelet Volume 11.1 FL (9.5-12.2); Monocytes # (A) 0.09 X 10*3/uL (0.20-1.00); Monocytes % (A) 1.3 %; NRBC Per 100 WBC 0 X 10*3/uL (0.00-0.01); Neutrophils # (A) 6.28 X 10*3/uL (1.80-7.70); Neutrophils % (A) 88.4 %; Platelet Count 230 X 10*3/uL (140-440); RBC 4.34 X 10*6/uL (4.10-5.20); RDW 15.5 % (11.5-14.5)
[2024-09-10] MEDS ORDERED: ACETAMINOPHEN TAB 325 MG TAB PO PRN (09:59)
--- NOTE | 2024-09-10 10:09 | P.PN ---
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 Patient states 6 days ago, while getting out of bed, she slipped on her carpet, fell, and landed on her buttocks. She states she was unable to get up and tried calling for help. She says she or her boyfriend 1 month ago and is currently living at home by herself. She states she has been down for the past 6 days. She was eventually able to get hold of the police and EMS where she was ultimately brought in. She states she has not had much to eat or drink during these past few days. She admits to some nausea and says she feels warm like she is having a fever. She admits to sore throat. Denies any chills, headache, shortness of breath, chest pain, abdominal pain, urinary symptoms, suicidal/homicidal ideation. EKG independently interpreted displaying sinus tachycardia, rate 113 bpm, QTc 389 ms CXR independently interpreted displaying pulmonary nodules with right patchy airspace opacities Brain CT displaying 1.9 cm mass anterior right frontal lobe with extensive surrounding vasogenic edema, second septal 7 mm lesion superior right frontal lobe, possible 7 mm hemorrhagic lesion posterior right parietal lobe Calcium 12.1, ionized calcium 6.2, phosphorus 2.0, sodium 150, BUN 44, creatinine 1.35, creatinine kinase 164, AST 38, ALT 24, alk phos 68, WBC 10.37 UA displaying trace urine blood, urine protein, and urine ketones, 1+ bilirubin Cepheid 4 Plex unremarkable for influenza type A/B, RSV, SARS-CoV-2 Group A strep negative T 98.2F, WI 115, RR 22, BP 137/120, oxygen saturation 95% on room air Subjective: Patient seen and examined at bedside. No acute events overnight. Pertinent positives and negatives as discussed above, a complete review of systems was performed and all other systems are negative. Vitals: Signs Reviewed Physical Exam: General: nontoxic, no distress, appears at stated age, morbidly obese Derm: Multiple excoriations found across body, b/l LE venous stasis dermatitis Head: atraumatic, normocephalic, symmetric Neck: Nodule located on left anterior neck Eyes: EOMI, anicteric sclera Mouth: no lip lesion, mucus membranes moist Cardiovascular: S1 S2 reg, no murmur, rubs, or gallops Lungs: CTA bilateral, no rhonchi, no rales, no accessory muscle use Abdominal: soft, non-tender to palpataion, no appreciable organomegaly Extremities: no gross muscle atrophy, no edema, no contractures Neuro: Alert, Oriented, CNII-XII grossly intact, gait normal Psych: well appearing, depressed mood, labile affect, is capable of making decisions Data Received Today: Pertinent Labs: CBC - dillutional anemia with Hgb 11.9, BMP showing hyponatremia resolved at 140, potassium 4.3, LINWOOD has improved from 1.36 => 1.12, hypercalcemia improving at 11.5 => 10.8, ionized calcium 5.8, phosphorus 2.5 PTH 44.5 Vitamin D < 5.0 ng/mL Serum osmolality 320 (supports hypernatremia and hypertonic state) Urine osmolality 820 (>600 = kidneys are appropriately reabsorbing free water) Urine random sodium 20 (< 20 supports hypovolemia) Imaging: MRI brain with and without contrast: Pending EEG: Pending Assessment and Plan: Patient is a 59-year-old female with cancer, depression and hypertension presenting with fall in the setting of generalized weakness and brains metastasis. #. Fall in the setting of brain metastasis w/vasogenic edema #. History of uriterine cancer with brain and lung mets #. Weakness/debility #. Morbidly obese CT brain reviewed as above CXR reviewed as above Decadron 6 mg IVP every 6 hours Keppra 500 mg PO q12hr has been discontinued by neurology Patient states she had recent PET scan done at [facility] States she was previously taking medroxyprogesterone but states she ran out MRI brain w/wo contrasted pending Seizure and fall Precautions, Neurochecks PT/OT consulted Oncology consulted, pending recommendations Neurology following #. LINWOOD on CKD stage IIIa, in setting of dehyrdation, improving #. Mild hypercalcemia, improving Calcium on admission 12.1, corrected calcium 12.1, ionized calcium 6.2 => 10.8, 5.8 Na 150 on admission => 140 Status post 1 L bolus in ED Continue with aggressive fluid management with LR at 200 cc/an hour Consider Calcitonin 4 IU/kg SQ every 6 hours for 1 to 2 days if no improvement Consider bisphosphonate like sulfuric acid 4 mg IV once infuse over 15 if no improvement BMP q6hrs Cardiac telemetry Serum osmolality, urine osmolality, urine lytes reviewed as above PTH and vitamin D reviewed as above, PTHrp, 1,25-dihydroxy pending #. Vitamin D deficiency Vit D < 5.0 ng/mL Vitamin D3 125 mcg PO QD for 8 weeks followed by maintence therapy of 5017-4197 IU daily Chronic: #. Hypertension: Continue metoprolol 25 mg p.o. twice daily #. Anxiety/depression/OCD: Denies any suicidal or homicidal ideation, continue with Lexapro 10 mg PO QD, Wellbutrin 150 mg PO BID, buspirone 5 mg PO BID #. GERD: Pepcid 10 mg p.o. twice daily #. Asthma: Albuterol inhaler every 4 hours as needed Resolved: #. Hypovolemic hypernatremia #. Mild hypophosphatemia #. Lactic acidosis DVT prophylaxis: Heparin 5000 unit SQ q 8 hours Code status: Full code Anticipated discharge place: Pending clinical course Anticipated discharge time: Pending clinical course Kennedy Jc MD PGY-1 IM Dictation was produced using [employer] dictation software. please excuse any grammatical, word or spelling errors. I saw and evaluated the patient during the bess and critical portions of this encounter, and discussed the case in detail with the resident author of this note, I agree with the Assessment and Plan, and my changes, if any, are highlighted in blue. Objective - Vital Signs Vital signs: Vital Signs Temp 98.4 F 09/10/24 02:00 Pulse 62 09/10/24 02:00 Resp 16 09/10/24 02:00 BP 131/75 09/10/24 02:00 Pulse Ox 93 L 09/10/24 02:00 FiO2 Intake & Output 09/09/24 09/10/24 09/10/24 18:59 06:59 18:59 Intake Total 540 Output Total 300 Balance 240 Weight 184.612 kg 184.612 kg Intake: Oral 540 Output: Urine 300 Other: Voiding Method Diaper External Catheter - Labs CBC & Chem 7: 09/10/24 05:17 09/10/24 05:17 Labs: Abnormal Lab Results - Last 24 Hours (Table) 09/09/24 09/09/24 09/09/24 Range/Units 08:44 08:44 08:44 WBC 10.37 H (4.50-10.00) 10*3/uL MCHC 31.1 L (32.0-37.0) g/dL Immature Gran # 0.05 H (0.00-0.04) 10*3/uL Neutrophils # 8.55 H (1.80-7.70) 10*3/uL Lymphocytes # 0.85 L (0.90-5.00) 10*3/uL Sodium 150 H (137-145) mmol/L Chloride 112 H (98-107) mmol/L BUN 44 H (7-17) mg/dL Creatinine 1.35 H (0.52-1.04) mg/dL Glucose 146 H (74-99) mg/dL Osmolality (275-295) mOsm/kg Plasma Lactic Acid Jose 2.7 H* (0.7-2.0) mmol/L Calcium 12.1 H (8.4-10.2) mg/dL Ionized Calcium Esperanza 6.2 H* (4.5-5.3) mg/dL Phosphorus (2.5-4.5) mg/dL AST 38 H (14-36) U/L Creatine Kinase 164 H (30-135) U/L Total Protein (6.3-8.2) g/dL Albumin (3.5-5.0) g/dL Vitamin D 25-Hydroxy (30.0-100.0) ng/mL Urine Appearance (Clear) Urine Protein (Negative) Urine Ketones (Negative) Urine Blood (Negative) Urine Bilirubin (Negative) Urine Mucus (None) /hpf Ur Random Sodium (40-220) mmol/L 09/09/24 09/09/24 09/09/24 Range/Units 08:44 09:05 15:20 WBC (4.50-10.00) 10*3/uL MCHC (32.0-37.0) g/dL Immature Gran # (0.00-0.04) 10*3/uL Neutrophils # (1.80-7.70) 10*3/uL Lymphocytes # (0.90-5.00) 10*3/uL Sodium (137-145) mmol/L Chloride (98-107) mmol/L BUN (7-17) mg/dL Creatinine (0.52-1.04) mg/dL Glucose (74-99) mg/dL Osmolality (275-295) mOsm/kg Plasma Lactic Acid Jose (0.7-2.0) mmol/L Calcium (8.4-10.2) mg/dL Ionized Calcium Esperanza (4.5-5.3) mg/dL Phosphorus 2.0 L (2.5-4.5) mg/dL AST (14-36) U/L Creatine Kinase (30-135) U/L Total Protein (6.3-8.2) g/dL Albumin (3.5-5.0) g/dL Vitamin D 25-Hydroxy (30.0-100.0) ng/mL Urine Appearance Cloudy H (Clear) Urine Protein Trace H (Negative) Urine Ketones Trace H (Negative) Urine Blood Trace H (Negative) Urine Bilirubin 1+ H (Negative) Urine Mucus Few H (None) /hpf Ur Random Sodium 20 L (40-220) mmol/L 09/09/24 09/09/24 09/10/24 Range/Units 15:58 15:58 05:17 WBC (4.50-10.00) 10*3/uL MCHC (32.0-37.0) g/dL Immature Gran # (0.00-0.04) 10*3/uL Neutrophils # (1.80-7.70) 10*3/uL Lymphocytes # (0.90-5.00) 10*3/uL Sodium (137-145) mmol/L Chloride 110 H (98-107) mmol/L BUN 42 H 40 H (7-17) mg/dL Creatinine 1.36 H 1.12 H (0.52-1.04) mg/dL Glucose 133 H 116 H (74-99) mg/dL Osmolality 320 H (275-295) mOsm/kg Plasma Lactic Acid Jose (0.7-2.0) mmol/L Calcium 11.5 H 10.8 H (8.4-10.2) mg/dL Ionized Calcium Esperanza (4.5-5.3) mg/dL Phosphorus (2.5-4.5) mg/dL AST (14-36) U/L Creatine Kinase (30-135) U/L Total Protein 5.7 L (6.3-8.2) g/dL Albumin 3.0 L (3.5-5.0) g/dL Vitamin D 25-Hydroxy <5.0 L (30.0-100.0) ng/mL Urine Appearance (Clear) Urine Protein (Negative) Urine Ketones (Negative) Urine Blood (Negative) Urine Bilirubin (Negative) Urine Mucus (None) /hpf Ur Random Sodium (40-220) mmol/L
[2024-09-10 10:51] LABS: African American GFR (CKD) 58 (>60 ml/min/1.73 sqM); Anion Gap 9 mmol/L; Blood Urea Nitrogen 41 mg/dL (7-17); Calcium 11.2 mg/dL (8.4-10.2); Carbon Dioxide 25 mmol/L (22-30); Chloride 108 mmol/L (98-107); Glucose 152 mg/dL (74-99); Non-African American GFR(CKD) 50 (>60 ml/min/1.73 sqM); Sodium 142 mmol/L (137-145)
[2024-09-10] MEDS: CHOLECALCIFEROL 25 MCG (1000 IU) TABLET PO SCH (12:53)
[2024-09-10] MEDS ORDERED: CALCITONIN INJ 200 UNIT/ML (MDV) VIAL SQ ONE (17:26)
--- NOTE | 2024-09-10 17:47 | P.PN ---
Subjective Progress Note Date: 09/10/24 I am following-up with patient and she feels she is doing well. Denies any new neurological issues. Objective - Vital Signs Vital signs: Vital Signs Temp 98.4 F 09/10/24 14:00 Pulse 70 09/10/24 14:00 Resp 20 09/10/24 14:00 BP 163/86 09/10/24 14:00 Pulse Ox 95 09/10/24 14:00 FiO2 Intake & Output 09/09/24 09/10/24 09/10/24 18:59 06:59 18:59 Intake Total 540 Output Total 300 Balance 240 Weight 184.612 kg 184.612 kg Intake: Oral 540 Output: Urine 300 Other: Voiding Method Diaper Diaper External Catheter External Catheter - Exam GENERAL: The patient is lying in bed and is not in acute distress. Patient is morbidly obese. NEUROLOGICAL: Higher mental function: The patient is awake, alert, oriented to self, place and time. Patient is following commands. No aphasia and no neglect. Cranial nerves: The pupils are round, equal and reactive to light. Visual hutchins is full out of the left eye but has severe poor vision out of the right eye and that is chronic. Facial sensation is normal to touch throughout. The facial strength is normal throughout. Hearing is normal bilaterally to hand rub. Tongue is midline and moved [id number] without any difficulty. No dysarthria is noted. Shoulder shrug is normal bilaterally. Motor: The strength is 5 over 5 throughout uppers. While lowers are limited but has antigravity. Cerebellum: Normal finger to nose bilaterally. Sensation: Sensation is normal to touch throughout. Reflexes (right/left): Hard to assess because of body habits. Some of the workup during this hospital visit consisted of: I reviewed the lab workup. CT of the head is reported as suggestion of 1.9 cm anterior right frontal with extensive surrounding vasogenic edema. No midline shift, herniation or hydrocephalus. Suspect a second septal 7 mm lesion superior right frontal lobe. Possible 7 mm hemorrhagic lesion posterior right parietal lobe. Recommend MRI with and without as well as further clinical workup for either primary neoplasm versus metastatic disease. I personally reviewed the CT of the head and I agree the patient has brain mass over the right frontal with vasogenic edema. - Labs CBC & Chem 7: 09/10/24 05:17 09/10/24 10:27 Labs: Abnormal Lab Results - Last 24 Hours (Table) 09/09/24 09/09/24 09/09/24 Range/Units 15:20 15:58 15:58 Hgb (12.0-15.0) g/dL MCHC (32.0-37.0) g/dL RDW (11.5-14.5) % Immature Gran # (0.00-0.04) X 10*3/uL Lymphocytes # (0.90-5.00) X 10*3/uL Monocytes # (0.20-1.00) X 10*3/uL Eosinophils # (0.04-0.35) X 10*3/uL Chloride (98-107) mmol/L BUN (7-17) mg/dL Creatinine (0.52-1.04) mg/dL Glucose (74-99) mg/dL Osmolality 320 H (275-295) mOsm/kg Calcium (8.4-10.2) mg/dL Ionized Calcium Esperanza (4.5-5.3) mg/dL Total Protein (6.3-8.2) g/dL Albumin (3.5-5.0) g/dL Vitamin D 25-Hydroxy <5.0 L (30.0-100.0) ng/mL Vit D 1,25-Dihydroxy 14.4 L (19.9-79.3) pg/mL Ur Random Sodium 20 L (40-220) mmol/L 09/10/24 09/10/24 09/10/24 Range/Units 05:17 05:17 07:41 Hgb 11.9 L (12.0-15.0) g/dL MCHC 30.8 L (32.0-37.0) g/dL RDW 15.5 H (11.5-14.5) % Immature Gran # 0.07 H (0.00-0.04) X 10*3/uL Lymphocytes # 0.65 L (0.90-5.00) X 10*3/uL Monocytes # 0.09 L (0.20-1.00) X 10*3/uL Eosinophils # 0 L (0.04-0.35) X 10*3/uL Chloride 110 H (98-107) mmol/L BUN 40 H (7-17) mg/dL Creatinine 1.12 H (0.52-1.04) mg/dL Glucose 116 H (74-99) mg/dL Osmolality (275-295) mOsm/kg Calcium 10.8 H (8.4-10.2) mg/dL Ionized Calcium Esperanza 5.8 H (4.5-5.3) mg/dL Total Protein 5.7 L (6.3-8.2) g/dL Albumin 3.0 L (3.5-5.0) g/dL Vitamin D 25-Hydroxy (30.0-100.0) ng/mL Vit D 1,25-Dihydroxy (19.9-79.3) pg/mL Ur Random Sodium (40-220) mmol/L 09/10/24 Range/Units 10:27 Hgb (12.0-15.0) g/dL MCHC (32.0-37.0) g/dL RDW (11.5-14.5) % Immature Gran # (0.00-0.04) X 10*3/uL Lymphocytes # (0.90-5.00) X 10*3/uL Monocytes # (0.20-1.00) X 10*3/uL Eosinophils # (0.04-0.35) X 10*3/uL Chloride 108 H (98-107) mmol/L BUN 41 H (7-17) mg/dL Creatinine 1.18 H (0.52-1.04) mg/dL Glucose 152 H (74-99) mg/dL Osmolality (275-295) mOsm/kg Calcium 11.2 H (8.4-10.2) mg/dL Ionized Calcium Esperanza (4.5-5.3) mg/dL Total Protein (6.3-8.2) g/dL Albumin (3.5-5.0) g/dL Vitamin D 25-Hydroxy (30.0-100.0) ng/mL Vit D 1,25-Dihydroxy (19.9-79.3) pg/mL Ur Random Sodium (40-220) mmol/L Assessment and Plan Assessment: This is a 59-year-old woman who presents to the emergency department because of a fall at home. It seems that she got out of bed and her foot got tangled with her carpet and as a result she fell on her buttocks region and did not have any focal deficit or did not lose consciousness. She has known history of uterine cancer with mets to the liver and brain. Fall and it appears mechanical. Brain mets with vasogenic edema. Hypernatremia---resolved History of uterine cancer with mets to liver and brain status post D&C Acute kidney injury Hypercalcemia Hypophosphatemia Morbid Obesity Plan: Patient was started on Decadron 6 mg every 6 hours with a 10 mg IV once. I will defer the modification of the Decadron to the oncology team Her preliminary EEG is negative for any seizures. Patient does not want to be on any antiseizure medication. MRI of the brain with and without is ordered and is pending Oncology team is consulted Patient is known to [facility] Oncology team. PT and OT are consulted Will defer the rest of the medical management to primary team and other specialist. Time with Patient: Less than 30
[2024-09-10] MEDS: ZOLEDRONIC ACID 4 MG in SODIUM CHLORIDE 0.9% 100 ML IV ONE (18:17)
[2024-09-11 07:12] LABS: Basophils # (A) 0.01 10*3/uL (0.00-0.10); Basophils % (A) 0.1 %; HCT 42.8 % (37.2-46.3); HGB 13.5 g/dL (12.0-15.0); Lymphocytes % (A) 8.7 %; MCH 28.2 pg (27.0-32.0); MCHC 31.5 g/dL (32.0-37.0); MCV 89.4 fL (80.0-97.0); Mean Platelet Volume 10.6 fL (9.5-12.2); Monocytes # (A) 0.11 10*3/uL (0.20-1.00); Monocytes % (A) 1.6 %; Neutrophils # (A) 6.07 10*3/uL (1.80-7.70); Neutrophils % (A) 88.1 %; Platelet Count 243 10*3/uL (140-440); RBC 4.79 10*6/uL (4.10-5.20); RDW 15.1 % (11.5-14.5); WBC 6.89 10*3/uL (4.50-10.00)
[2024-09-11 07:25] LABS: Ionized Calcium 5.6 mg/dL (4.5-5.3)
[2024-09-11 07:32] LABS: African American GFR (CKD) 62 (>60 ml/min/1.73 sqM); Anion Gap 9 mmol/L; Blood Urea Nitrogen 45 mg/dL (7-17); Calcium 10.7 mg/dL (8.4-10.2); Carbon Dioxide 23 mmol/L (22-30); Chloride 108 mmol/L (98-107); Glucose 113 mg/dL (74-99); Magnesium 1.7 mg/dL (1.6-2.3); Non-African American GFR(CKD) 54 (>60 ml/min/1.73 sqM); Potassium 4.4 mmol/L (3.5-5.1); Sodium 140 mmol/L (137-145)
--- NOTE | 2024-09-11 08:40 | P.CONS ---
History of Present Illness - Reason for Consult Consult date: 09/10/24 uterine carcinoma, brain mets Requesting physician: Kennedy Jc - Chief Complaint fall - History of Present Illness Mrs. Wolfe is a 59-year-old female that we have been asked to see because of a history of uterine carcinoma. Currently she is admitted because she states that she fell on Monday, was unable to get up, was yelling for help, finally a neighbor called for a well check because pt had not gotten her mail. She was brought to the hospital for evaluation. She thinks she has had some low-grade fevers the last few months, the nodule in her left supraclavicular area and on her back she states started about 2 to 3 months ago, she has continued to have unintentional weight loss. She has no appetite. She denies difficulty swallowing, nausea or vomiting, chest pain, abdominal pain or cramping, she has had some expectoration of some yellow sputum recently, intermittent diarrhea, no dysuria or hematuria, her lower extremity are swollen, it is difficult for her to get around, she is weak in general. Patient's boyfriend a month ago and she is pretty depressed about the same . Patient reports that she has been on treatment for uterine carcinoma with Dr. Ronaldo Ortiz, diagnosed just about 1 year ago after a D&C. She has been on megace since. She last saw Dr. Ortiz in Apr 2024, She ran out of megace a month ago. Medical records obtained and summarized here: Last note 12/22/[address] Ortiz was a telemedicine visit. 2020 was when patient was told she had endometriosis. 01/18/2023 pelvic ultrasound done repo rting that the uterus was diffusely heterogenous in echotexture. Endometrial abnormally thickened and heterogenous. Nonvisualized ovaries. Recommendation for biopsy. 03/30 endometrial biopsy, no malignancy identified. 08/29 [facility] hysteroscopy with D&C. Endometrial cutterage- Endometrial adenocarcinoma, endometrioid type, FIGO grade [address] CAP impression questionable endometrial stripe thickening otherwise no significant abnormality. Plans for surgery, if patient lost some weight. It is noted in the chart that patient has a very curable cancer but, it requires surgery. Patient was placed on Provera 10mg QD. She was supposed to continue to follow- up with PCP for weight loss and to repeat an EKG or have stress test before considering major abdominal surgery. Surgeon Dr. Lantigua assessed for feasibility of a vaginal hysterectomy 04/18/2024. When she was being assessed by the Surgeon it is documented in his note that the patient was in [facility] in March and April 2024 and imaging at that time reported pulmonary nodules. Surgeon felt that there were significant limitations to surgery, other than obesity. Reported that on exam there was no significant descent of the uterus, felt uterus is enlarged based on lower uterine fullness. Surgeon felt that patient did not meet the criteria for safely attempting a vaginal hysterectomy. Patient had PET/CT ordered by Dr. Martini 06/27/2024 impression of this report is: Intense tracer activity along the uterus, SUV 21.5. Left iliac, SUV 17.5, most likely lymph node mets. Asymmetric low- attenuation lesion posterior aspect of the left lobe of the liver, SUV 18.7. Innumerable pulmonary nodules bilaterally, SUV 13.3. Nodes in the hilar, mediastinum bilaterally, max SUV of 17. Bilateral breast nodules, SUV of 7.4. Left supraclavicular adenopathy SUV of 22.8. Subcutaneous left scapular area SUV of 22.3. The left supraclavicular node and the subcutaneous left scapular mass are visible and palpable. Review of Systems 10 point ROS is neg except as stated in HPI Past Medical History Past Medical History: Cancer, Hypertension Additional Past Medical History / Comment(s): OCD History of Any Multi-Drug Resistant Organisms: None Reported Past Surgical History: Appendectomy Additional Past Surgical History / Comment(s): D&C, dental surgery Past Anesthesia/Blood Transfusion Reactions: No Reported Reaction Past Psychological History: Depression, Panic Disorder Smoking Status: Current some day smoker Past Alcohol Use History: None Reported Past Drug Use History: None Reported Medications and Allergies Home Medications Medication Instructions Recorded Confirmed Type Albuterol Sulfate [Albuterol 2 puff INHALATION RT-Q4H PRN 04/08/24 09/09/24 History Sulfate Hfa] Escitalopram [Lexapro] 10 mg PO DAILY 04/08/24 09/09/24 History Ibuprofen [Motrin Ib] 200 mg PO Q8H PRN 04/08/24 09/09/24 History Metoprolol Tartrate [Lopressor] 25 mg PO BID 04/08/24 09/09/24 History buPROPion XL [Wellbutrin XL] 150 mg PO BID 04/08/24 09/09/24 History Famotidine [Pepcid] 10 mg PO BID 09/09/24 09/09/24 History busPIRone HCL 5 mg PO BID 09/09/24 09/09/24 History Allergies Allergy/AdvReac Type Severity Reaction Status Date / Time acetaminophen Allergy Unknown Verified 09/09/24 11:05 [From Darvocet-N 100] nickel Allergy Unknown Verified 09/09/24 11:05 propoxyphene Allergy Unknown Verified 09/09/24 11:05 [From Darvocet-N 100] sucrose Allergy Unknown Verified 09/09/24 11:05 Physical Exam Vitals: Vital Signs Temp Pulse Pulse Resp BP BP Pulse Ox 09/10/24 07:59 95 09/10/24 07:57 97.4 F L 60 18 136/79 94 L 09/10/24 02:00 98.4 F 62 16 131/75 93 L 09/09/24 20:00 98.1 F 80 18 144/73 94 L 09/09/24 19:30 80 18 09/09/24 18:10 98.4 F 73 18 138/85 98 09/09/24 14:00 89 18 147/89 94 L 09/09/24 13:00 97.7 F 103 H 18 130/93 94 L 09/09/24 12:00 105 H 18 133/88 09/09/24 11:00 98 F 101 H 18 122/95 09/09/24 10:33 113 H 18 157/89 09/09/24 10:00 111 H 18 157/89 09/09/24 09:08 112 H 20 140/66 97 Intake and Output 09/09/24 09/10/24 09/10/24 22:59 06:59 14:59 Intake Total 540 Output Total 300 Balance 240 Intake: Oral 540 Output: Urine 300 Other: Voiding Method Diaper External Catheter Weight 184.612 kg - Constitutional General appearance: cooperative, mild distress, morbidly obese - EENT Eyes: anicteric sclerae, edentulous ENT: hearing grossly normal, normal oropharynx - Neck Neck: lymphadenopathy (3cm spuraclavicular LN, hard, fixed. 2cm SQ mass under lt scapula, hard) - Respiratory Respiratory: bilateral: diminished - Cardiovascular Rhythm: regular Heart sounds: normal: S1, S2 Abnormal Heart Sounds: no systolic murmur, no diastolic murmur, no rub, no S3 Gallop, no S4 Gallop, no click, no other leg Peripheral Edema: bilateral: 1+ - Gastrointestinal General gastrointestinal: no absent bowel sounds, no decreased bowel sounds, no distended, no hepatomegaly, no hyperactive bowel sounds, normal bowel sounds, no organomegaly, no rigid, no scaphoid, soft, no splenomegaly, no tenderness, no umbilical hernia, no ventral hernia - Neurologic Neurologic: CNII-XII intact - Musculoskeletal Musculoskeletal: generalized weakness - Psychiatric depressed, tearful at times Psychiatric: A&O x's 3 Results CBC & Chem 7: 09/11/24 06:42 09/11/24 06:42 Labs: Abnormal Lab Results - Last 24 Hours (Table) 09/09/24 09/09/24 09/09/24 Range/Units 08:44 08:44 08:44 WBC 10.37 H (4.50-10.00) 10*3/uL Hgb (12.0-15.0) g/dL MCHC 31.1 L (32.0-37.0) g/dL RDW (11.5-14.5) % Immature Gran # 0.05 H (0.00-0.04) 10*3/uL Neutrophils # 8.55 H (1.80-7.70) 10*3/uL Lymphocytes # 0.85 L (0.90-5.00) 10*3/uL Monocytes # (0.20-1.00) X 10*3/uL Eosinophils # (0.04-0.35) X 10*3/uL Sodium 150 H (137-145) mmol/L Chloride 112 H (98-107) mmol/L BUN 44 H (7-17) mg/dL Creatinine 1.35 H (0.52-1.04) mg/dL Glucose 146 H (74-99) mg/dL Osmolality (275-295) mOsm/kg Plasma Lactic Acid Jose 2.7 H* (0.7-2.0) mmol/L Calcium 12.1 H (8.4-10.2) mg/dL Ionized Calcium Esperanza 6.2 H* (4.5-5.3) mg/dL Phosphorus (2.5-4.5) mg/dL AST 38 H (14-36) U/L Creatine Kinase 164 H (30-135) U/L Total Protein (6.3-8.2) g/dL Albumin (3.5-5.0) g/dL Vitamin D 25-Hydroxy (30.0-100.0) ng/mL Urine Appearance (Clear) Urine Protein (Negative) Urine Ketones (Negative) Urine Blood (Negative) Urine Bilirubin (Negative) Urine Mucus (None) /hpf Ur Random Sodium (40-220) mmol/L 09/09/24 09/09/24 09/09/24 Range/Units 08:44 09:05 15:20 WBC (4.50-10.00) 10*3/uL Hgb (12.0-15.0) g/dL MCHC (32.0-37.0) g/dL RDW (11.5-14.5) % Immature Gran # (0.00-0.04) 10*3/uL Neutrophils # (1.80-7.70) 10*3/uL Lymphocytes # (0.90-5.00) 10*3/uL Monocytes # (0.20-1.00) X 10*3/uL Eosinophils # (0.04-0.35) X 10*3/uL Sodium (137-145) mmol/L Chloride (98-107) mmol/L BUN (7-17) mg/dL Creatinine (0.52-1.04) mg/dL Glucose (74-99) mg/dL Osmolality (275-295) mOsm/kg Plasma Lactic Acid Jose (0.7-2.0) mmol/L Calcium (8.4-10.2) mg/dL Ionized Calcium Esperanza (4.5-5.3) mg/dL Phosphorus 2.0 L (2.5-4.5) mg/dL AST (14-36) U/L Creatine Kinase (30-135) U/L Total Protein (6.3-8.2) g/dL Albumin (3.5-5.0) g/dL Vitamin D 25-Hydroxy (30.0-100.0) ng/mL Urine Appearance Cloudy H (Clear) Urine Protein Trace H (Negative) Urine Ketones Trace H (Negative) Urine Blood Trace H (Negative) Urine Bilirubin 1+ H (Negative) Urine Mucus Few H (None) /hpf Ur Random Sodium 20 L (40-220) mmol/L 09/09/24 09/09/24 09/10/24 Range/Units 15:58 15:58 05:17 WBC (4.50-10.00) 10*3/uL Hgb (12.0-15.0) g/dL MCHC (32.0-37.0) g/dL RDW (11.5-14.5) % Immature Gran # (0.00-0.04) 10*3/uL Neutrophils # (1.80-7.70) 10*3/uL Lymphocytes # (0.90-5.00) 10*3/uL Monocytes # (0.20-1.00) X 10*3/uL Eosinophils # (0.04-0.35) X 10*3/uL Sodium (137-145) mmol/L Chloride 110 H (98-107) mmol/L BUN 42 H 40 H (7-17) mg/dL Creatinine 1.36 H 1.12 H (0.52-1.04) mg/dL Glucose 133 H 116 H (74-99) mg/dL Osmolality 320 H (275-295) mOsm/kg Plasma Lactic Acid Jose (0.7-2.0) mmol/L Calcium 11.5 H 10.8 H (8.4-10.2) mg/dL Ionized Calcium Esperanza (4.5-5.3) mg/dL Phosphorus (2.5-4.5) mg/dL AST (14-36) U/L Creatine Kinase (30-135) U/L Total Protein 5.7 L (6.3-8.2) g/dL Albumin 3.0 L (3.5-5.0) g/dL Vitamin D 25-Hydroxy <5.0 L (30.0-100.0) ng/mL Urine Appearance (Clear) Urine Protein (Negative) Urine Ketones (Negative) Urine Blood (Negative) Urine Bilirubin (Negative) Urine Mucus (None) /hpf Ur Random Sodium (40-220) mmol/L 09/10/24 09/10/24 Range/Units 05:17 07:41 WBC (4.50-10.00) 10*3/uL Hgb 11.9 L (12.0-15.0) g/dL MCHC 30.8 L (32.0-37.0) g/dL RDW 15.5 H (11.5-14.5) % Immature Gran # 0.07 H (0.00-0.04) 10*3/uL Neutrophils # (1.80-7.70) 10*3/uL Lymphocytes # 0.65 L (0.90-5.00) 10*3/uL Monocytes # 0.09 L (0.20-1.00) X 10*3/uL Eosinophils # 0 L (0.04-0.35) X 10*3/uL Sodium (137-145) mmol/L Chloride (98-107) mmol/L BUN (7-17) mg/dL Creatinine (0.52-1.04) mg/dL Glucose (74-99) mg/dL Osmolality (275-295) mOsm/kg Plasma Lactic Acid Jose (0.7-2.0) mmol/L Calcium (8.4-10.2) mg/dL Ionized Calcium Esperanza 5.8 H (4.5-5.3) mg/dL Phosphorus (2.5-4.5) mg/dL AST (14-36) U/L Creatine Kinase (30-135) U/L Total Protein (6.3-8.2) g/dL Albumin (3.5-5.0) g/dL Vitamin D 25-Hydroxy (30.0-100.0) ng/mL Urine Appearance (Clear) Urine Protein (Negative) Urine Ketones (Negative) Urine Blood (Negative) Urine Bilirubin (Negative) Urine Mucus (None) /hpf Ur Random Sodium (40-220) mmol/L Chest x-ray: report reviewed CT Scan - head: report reviewed Assessment and Plan (1) Endometrial carcinoma Current Visit: Yes Status: Acute Priority: High Code(s): C54.1 - MALIGNANT NEOPLASM OF ENDOMETRIUM SNOMED Code(s): 721680797 (2) Weakness Current Visit: Yes Status: Acute Priority: High Code(s): R53.1 - WEAKNESS SNOMED Code(s): 96856368 (3) Metastasis to brain Current Visit: Yes Status: Acute Code(s): C79.31 - SECONDARY MALIGNANT NEOPLASM OF BRAIN SNOMED Code(s): 59867161 Plan: Endometrial carcinoma - Diagnosis as documented in HPI. [facility] [employer] Oncologist and Surgeon notes were obtained and summarized. - When patient was seen today she was very distressed, tearful, did not seem to quite understand what was going on with her cancer. She reports that she had continued taking "Megace" as prescribed, but she ran out of the prescription about a month ago and was not able to get in to the doctor to get a new one. She reports that she had been taking care of her boyfriend for several months now so her medical conditions were not a concern for her while she cared for him. Unfortunately he recently. -It was discussed with her that unfortunately, there is evidence that she has metastatic disease. Not sure what all patient retained. Will follow up with her again and sit down and have a conversation based on the information we obtained from her [employer] Oncologist and Surgeon. Hopefully we can help her make sense of it. Not sure what kind of treatment the patient is going to want to do because she she completely lacks a support system. We will discuss hospice as well, when the time is appropriate - Patient has been started on steroids for brain metastasis. She has been started on Keppra for seizure prophylaxis. Radiation oncology will be consulted. Weakness - Secondary to metastatic malignancy, hypercalcemia and brain metastases -Likely it will be challenging to rehabilitate the patient without some sort of treatment of disease. -Physical therapy consulted. Hypercalcemia -Ca++ has come down with hydration. If it remains elevated will consider bisphosphonate administration Doctor attests: I performed a history and physical examination of this patient, developed impression and plan of care. Discussed with dictator. I agree with dictators note, documented as a scribe.
--- NOTE | 2024-09-11 11:08 | P.PN ---
Subjective Progress Note Date: 09/11/24 Hospital Course: Patient is a 59-year-old female with uterine cancer with brain and liver metastasis status post D&C currently on chemotherapy, depression/anxiety, and hypertension presenting with generalized weakness. Patient states 6 days ago, while getting out of bed, she slipped on her carpet, fell, and landed on her buttocks. She states she was unable to get up and tried calling for help. She says she or her boyfriend 1 month ago and is currently living at home by herself. She states she has been down for the past 6 days. She was eventually able to get hold of the police and EMS where she was ultimately brought in. She states she has not had much to eat or drink during these past few days. She admits to some nausea and says she feels warm like she is having a fever. She admits to sore throat. Denies any chills, headache, shortness of breath, chest pain, abdominal pain, urinary symptoms, suicidal/homicidal ideation. EKG independently interpreted displaying sinus tachycardia, rate 113 bpm, QTc 389 ms CXR independently interpreted displaying pulmonary nodules with right patchy airspace opacities Brain CT displaying 1.9 cm mass anterior right frontal lobe with extensive surrounding vasogenic edema, second septal 7 mm lesion superior right frontal lobe, possible 7 mm hemorrhagic lesion posterior right parietal lobe Calcium 12.1, ionized calcium 6.2, phosphorus 2.0, sodium 150, BUN 44, creatinine 1.35, creatinine kinase 164, AST 38, ALT 24, alk phos 68, WBC 10.37 UA displaying trace urine blood, urine protein, and urine ketones, 1+ bilirubin Cepheid 4 Plex unremarkable for influenza type A/B, RSV, SARS-CoV-2 Group A strep negative T 98.2F, NV 115, RR 22, BP 137/120, oxygen saturation 95% on room air PTH 44.5 1,25-dihydroxy 14.4 Vitamin D < 5.0 ng/mL Serum osmolality 320 (supports hypernatremia and hypertonic state) Urine osmolality 820 (>600 = kidneys are appropriately reabsorbing free water) Urine random sodium 20 (< 20 supports hypovolemia) Subjective: Patient seen and examined at bedside. No acute events overnight. Pertinent positives and negatives as discussed above, a complete review of systems was performed and all other systems are negative. Vitals: Signs Reviewed Physical Exam: General: nontoxic, no distress, appears at stated age, morbidly obese Derm: Multiple excoriations found across body, b/l LE venous stasis dermatitis Head: atraumatic, normocephalic, symmetric Neck: Nodule located on left anterior neck Eyes: EOMI, anicteric sclera Mouth: no lip lesion, mucus membranes moist Cardiovascular: S1 S2 reg, no murmur, rubs, or gallops Lungs: CTA bilateral, no rhonchi, no rales, no accessory muscle use Abdominal: soft, non-tender to palpataion, no appreciable organomegaly Extremities: no gross muscle atrophy, no edema, no contractures Neuro: Alert, Oriented, CNII-XII grossly intact, gait normal Psych: well appearing, depressed mood, labile affect, is capable of making decisions Data Received Today: Pertinent Labs: CBC showing anemia resolved, CMP showing improved hypercalcemia calcium 10.7, ionized calcium 5.6 Imaging: MRI brain with and without contrast: Pending EEG: Pending Assessment and Plan: Patient is a 59-year-old female with cancer, depression and hypertension presenting with fall in the setting of generalized weakness and brains metastasis. #. Fall in the setting of brain metastasis w/vasogenic edema #. History of endometrial cancer with brain and lung mets #. Weakness/debility #. Morbidly obese CT brain reviewed as above CXR reviewed as above Decadron 6 mg IVP every 6 hours Keppra 500 mg PO q12hr has been discontinued by neurology Patient states she had recent PET scan done at [facility] States she was previously taking medroxyprogesterone but states she ran out MRI brain w/wo contrast pending Seizure and fall Precautions, Neurochecks PT/OT consulted Oncology following, will discuss possible treatment plans Radiation oncology consulted Discussed with neurology, consider goals of care discussion #. LINWOOD on CKD stage IIIa, in setting of dehyrdation, improving #. Mild hypercalcemia, improving Calcium on admission 12.1, corrected calcium 12.1, ionized calcium 6.2 => 5.8 => 5.6 Na 150 on admission => 140 Status post 1 L bolus in ED Continue with aggressive fluid management with LR at 200 cc/an hour S/p zoledronic acid 4 mg IV once Cardiac telemetry Serum osmolality, urine osmolality, urine lytes reviewed as above PTH and vitamin D reviewed as above, PTHrp pending Consider consulting nephrology if calcium does not resolve Chronic: #. Hypertension: Continue metoprolol 25 mg PO BID #. Anxiety/depression/OCD: Denies any suicidal or homicidal ideation, continue with Lexapro 10 mg PO QD, Wellbutrin 150 mg PO BID, buspirone 5 mg PO BID #. GERD: Pepcid 10 mg p.o. twice daily #. Asthma: Albuterol inhaler every 4 hours as needed Resolved: #. Hypovolemic hypernatremia #. Mild hypophosphatemia #. Lactic acidosis DVT prophylaxis: Heparin 5000 unit SQ q 8 hours Code status: Full code Anticipated discharge place: Pending clinical course Anticipated discharge time: Pending clinical course Kennedy Jc MD PGY-1 IM Dictation was produced using [employer] dictation software. please excuse any grammatical, word or spelling errors. I have seen and evaluated the patient today. Discussed with the resident and agree with the residents finding and plan as documented in the resident's note. Changes highlighted in blue font. Objective - Vital Signs Vital signs: Vital Signs Temp 98.0 F 09/11/24 02:00 Pulse 59 L 09/11/24 02:00 Resp 16 09/11/24 02:00 BP 157/82 09/11/24 02:00 Pulse Ox 97 09/11/24 02:00 FiO2 Intake & Output 09/10/24 09/11/24 09/11/24 18:59 06:59 18:59 Intake Total 2940 Balance 2940 Intake: Intake, IV Titration 2400 Amount Lactated Ringers 1,000 ml 2400 @ 200 mls/hr IV .Q5H DYLAN Rx#:[id number] Oral 540 Other: Voiding Method Diaper Diaper Incontinent Incontinent External Catheter External Catheter # Voids 3 4 # Bowel Movements 3 - Labs CBC & Chem 7: 09/11/24 06:42 09/11/24 06:42 Labs: Abnormal Lab Results - Last 24 Hours (Table) 09/09/24 09/10/24 09/10/24 Range/Units 15:58 05:17 07:41 Hgb 11.9 L (12.0-15.0) g/dL MCHC 30.8 L (32.0-37.0) g/dL RDW 15.5 H (11.5-14.5) % Immature Gran # 0.07 H (0.00-0.04) X 10*3/uL Lymphocytes # 0.65 L (0.90-5.00) X 10*3/uL Monocytes # 0.09 L (0.20-1.00) X 10*3/uL Eosinophils # 0 L (0.04-0.35) X 10*3/uL Chloride (98-107) mmol/L BUN (7-17) mg/dL Creatinine (0.52-1.04) mg/dL Glucose (74-99) mg/dL Calcium (8.4-10.2) mg/dL Ionized Calcium Esperanza 5.8 H (4.5-5.3) mg/dL Vit D 1,25-Dihydroxy 14.4 L (19.9-79.3) pg/mL 09/10/24 09/11/24 Range/Units 10:27 06:42 Hgb (12.0-15.0) g/dL MCHC 31.5 L (32.0-37.0) g/dL RDW 15.1 H (11.5-14.5) % Immature Gran # 0.10 H (0.00-0.04) X 10*3/uL Lymphocytes # 0.60 L (0.90-5.00) X 10*3/uL Monocytes # 0.11 L (0.20-1.00) X 10*3/uL Eosinophils # 0.00 L (0.04-0.35) X 10*3/uL Chloride 108 H (98-107) mmol/L BUN 41 H (7-17) mg/dL Creatinine 1.18 H (0.52-1.04) mg/dL Glucose 152 H (74-99) mg/dL Calcium 11.2 H (8.4-10.2) mg/dL Ionized Calcium Esperanza (4.5-5.3) mg/dL Vit D 1,25-Dihydroxy (19.9-79.3) pg/mL
--- NOTE | 2024-09-11 16:37 | EEG ---
ELECTROENCEPHALOGRAM REPORT CLINICAL HISTORY: This is a 59-year-old woman, who presents because of generalized weakness, who has brain mets. The video EEG is obtained to evaluate for seizure epileptiform activity. RELEVANT MEDICATION: 1. Dexamethasone. 2. Keppra. EEG TYPE: Routine 21-channel EEG with video using the 10/20 electrode placement system. DESCRIPTION: Wakefulness is only obtained. During awake state, the background consists of low-to- moderate voltage of 8.5 to 9 hertz activity. There was no physiological stage 2 sleep architecture. There is right frontal slowing as well as left temporal. Interictal and ictal, no seizures noted during the study. No epileptiform discharges. ACTIVATION PROCEDURE: Photic stimulation did not evoke a posterior driving response. There is no abnormality during the photic stimulation. Hyperventilation is not performed. CLINICAL INTERPRETATION: This is an abnormal routine EEG. The background is normal. The focal slowing as stated above is suggestive of cerebral dysfunction in involved region. Otherwise, there is no epileptiform discharge or seizure on the EEG. Lack of epileptiform discharge does not rule out underlying epilepsy. Clinical correlation is recommended. MMODL / IJN: [id number] /
--- NOTE | 2024-09-11 16:39 | MR ---
INDICATION: Patient age:Female; 59 years old; Reason for study: brain mets; [facility]. COMPARISON: CT brain 09/09/2024. TECHNIQUE: Multi planar, multi sequence imaging was performed through the brain. The patient was then given 15 cc of Gadobutrol intravenously and multi planar, T1 fat-saturation images were obtained. [facility] protocol. FINDINGS: Right frontal lobe intra-axial 2.5 x 2.4 x 2.5 cm heterogenous enhancing lesion with marked surroundi ng vasogenic edema. Additional right frontal lobe 0.9 x 1.0 x 1.0 cm heterogenous enhancing lesion wi th surrounding vasogenic edema. There is a right frontal lobe near the vertex 0.6 cm homogeneously en hancing lesion and a peripheral left cerebellar 1.0 cm enhancing lesion without significant surroundi ng vasogenic edema. The smaller lesions demonstrate low T2 signal with the larger lesion demonstrated a mixed T2 hyper and hypointense signal. The vasogenic edema results in rightward midline shift appr oximately 2 mm. No evidence for hydrocephalus. There is some effacement of the anterior horn of the r ight lateral ventricle. The basal cisterns appear unremarkable. Additional focal region of FLAIR signal hyperintensity within the right temporal occipital region wit hout enhancing focus. May represent early metastatic lesion. Diffusion-weighted imaging shows no evidence of restricted diffusion to suggest acute/subacute infarc t. Intracranial arterial flow voids are maintained. The bone marrow signal is within normal limits. The paranasal sinuses and globes are unremarkable. IMPRESSION: 1. Approximately 4 enhancing lesions identified with 3 within the right frontal lobe and additional o ne within the left cerebellum. Consistent with reported metastasis. There is a large amount of vasoge carl edema within the right frontal lobe resulting in approximately 2 mm of midline shift to the left. 2. Additional focal region of FLAIR signal hyperintensity within the right temporal occipital region without enhancement. May represent developing early metastasis. 3. No evidence for acute/subacute infarct. [facility], , 09/11/2024 4:37 PM
--- NOTE | 2024-09-11 17:16 | P.PN ---
Subjective Progress Note Date: 09/11/24 Principal diagnosis: metastatic uterine carcinoma In f/u today tried to have a conversation with pt regarding metastatic uterine carcinoma. She reports caring for her boyfriend so, I am thinking that is why her medical care was not followed up on. Pt is tearful when discussing diagnosis but, she was told that there are treatments. She lives locally so would prefer care here. She is going to need social support Pt denied LEMUS, N,V, chest pain, abd pain, vaginal bleeding at this time. Objective - Vital Signs Vital signs: Vital Signs Temp 98.3 F 09/11/24 13:02 Pulse 61 09/11/24 13:02 Resp 16 09/11/24 13:02 BP 125/79 09/11/24 13:02 Pulse Ox 98 09/11/24 13:02 FiO2 Intake & Output 09/10/24 09/11/24 09/11/24 18:59 06:59 18:59 Intake Total 2940 Balance 2940 Intake: Intake, IV Titration 2400 Amount Lactated Ringers 1,000 ml 2400 @ 200 mls/hr IV .Q5H [facility] Rx#:[id number] Oral 540 Other: Voiding Method Diaper Diaper Diaper Incontinent Incontinent External Catheter External Catheter External Catheter # Voids 3 4 # Bowel Movements 3 - Constitutional General appearance: Present: cooperative, mild distress, morbidly obese - EENT Eyes: Present: anicteric sclerae, EOMI ENT: Present: hearing grossly normal - Respiratory Respiratory: bilateral: CTA - Cardiovascular Rhythm: regular Heart sounds: normal: S1, S2 Abnormal Heart Sounds: Absent: systolic murmur, diastolic murmur, rub, S3 Gallop, S4 Gallop, click, other - Gastrointestinal General gastrointestinal: Present: soft - Integumentary Integumentary: Present: pale - Musculoskeletal Musculoskeletal: Present: generalized weakness - Psychiatric Psychiatric Comment(s): labile mood, tearful at times Psychiatric: Present: A&O x's 3 - Labs CBC & Chem 7: 09/11/24 06:42 09/11/24 06:42 Labs: Abnormal Lab Results - Last 24 Hours (Table) 09/11/24 09/11/24 Range/Units 06:42 06:42 MCHC 31.5 L (32.0-37.0) g/dL RDW 15.1 H (11.5-14.5) % Immature Gran # 0.10 H (0.00-0.04) 10*3/uL Lymphocytes # 0.60 L (0.90-5.00) 10*3/uL Monocytes # 0.11 L (0.20-1.00) 10*3/uL Eosinophils # 0.00 L (0.04-0.35) 10*3/uL Chloride 108 H (98-107) mmol/L BUN 45 H (7-17) mg/dL Creatinine 1.12 H (0.52-1.04) mg/dL Glucose 113 H (74-99) mg/dL Calcium 10.7 H (8.4-10.2) mg/dL Ionized Calcium Esperanza 5.6 H (4.5-5.3) mg/dL Assessment and Plan (1) Endometrial carcinoma Current Visit: Yes Status: Acute Priority: High Code(s): C54.1 - MALIGNANT NEOPLASM OF ENDOMETRIUM SNOMED Code(s): 299080359 (2) Weakness Current Visit: Yes Status: Acute Priority: High Code(s): R53.1 - WEAKNESS SNOMED Code(s): 03099709 (3) Metastasis to brain Current Visit: Yes Status: Acute Code(s): C79.31 - SECONDARY MALIGNANT NEOPLASM OF BRAIN SNOMED Code(s): 65050939 Plan: Endometrial carcinoma - Diagnosis as documented in consult. [employer] Oncologist and Surgeon notes were obtained and summarized. - When patient was seen today she cont to be distressed, tearful. We reviewed that her cancer has spread. She seemed to understand that. I told her about the metastatic disease to the brain and that a Radiation Oncologist would be in to see her. She seemed ok with that. - Patient has been started on steroids for brain metastasis. She has been star eloise on Keppra for seizure prophylaxis. Discussed case with Radiation Oncologist today. Weakness - Secondary to metastatic malignancy, hypercalcemia and brain metastases -Likely it will be challenging to rehabilitate the patient without some sort of treatment of disease. -Physical therapy consulted. Hypercalcemia -Ca++ has come down with hydration. IM administered zometa -Ca++ recheck in AM Very concerned for pt lack of social support. It sounds as though she may have barriers to care when it comes to housing, reliable transportation, assistance in the home. She may need some time in rehab to get strong enough to be at home alone and care for herself. Will communicate with with CM and SW about her case.
[2024-09-12 07:47] LABS: Basophils # (A) 0.01 10*3/uL (0.00-0.10); Basophils % (A) 0.2 %; HCT 40.6 % (37.2-46.3); HGB 13.1 g/dL (12.0-15.0); Lymphocytes # (A) 0.63 10*3/uL (0.90-5.00); Lymphocytes % (A) 11.2 %; MCH 28.5 pg (27.0-32.0); MCHC 32.3 g/dL (32.0-37.0); MCV 88.5 fL (80.0-97.0); Monocytes # (A) 0.13 10*3/uL (0.20-1.00); Monocytes % (A) 2.3 %; Neutrophils # (A) 4.77 10*3/uL (1.80-7.70); Neutrophils % (A) 84.4 %; Platelet Count 205 10*3/uL (140-440); RBC 4.59 10*6/uL (4.10-5.20); RDW 15.1 % (11.5-14.5); WBC 5.65 10*3/uL (4.50-10.00)
[2024-09-12 08:02] LABS: African American GFR (CKD) 54 (>60 ml/min/1.73 sqM); Anion Gap 10 mmol/L; Blood Urea Nitrogen 48 mg/dL (7-17); Calcium 9.8 mg/dL (8.4-10.2); Carbon Dioxide 22 mmol/L (22-30); Chloride 108 mmol/L (98-107); Glucose 102 mg/dL (74-99); Magnesium 1.7 mg/dL (1.6-2.3); Non-African American GFR(CKD) 47 (>60 ml/min/1.73 sqM); Potassium 4.5 mmol/L (3.5-5.1); Sodium 140 mmol/L (137-145)
[2024-09-12] MEDS: ENOXAPARIN 40 MG/0.4 ML SYRINGE SQ SCH (12:21)
[2024-09-12] MEDS: dexAMETHasone 4 MG TAB PO SCH (12:21)
--- NOTE | 2024-09-12 14:30 | P.PN ---
Subjective Progress Note Date: 09/12/24 Hospital Course: Patient is a 59-year-old female with uterine cancer with brain and liver metastasis status post D&C currently on chemotherapy, depression/anxiety, and hypertension presenting with generalized weakness. Patient states 6 days ago, while getting out of bed, she slipped on her carpet, fell, and landed on her buttocks. She states she was unable to get up and tried calling for help. She says she or her boyfriend 1 month ago and is currently living at home by herself. She states she has been down for the past 6 days. She was eventually able to get hold of the police and EMS where she was ultimately brought in. She states she has not had much to eat or drink during these past few days. She admits to some nausea and says she feels warm like she is having a fever. She admits to sore throat. Denies any chills, headache, shortness of breath, chest pain, abdominal pain, urinary symptoms, suicidal/homicidal ideation. EKG independently interpreted displaying sinus tachycardia, rate 113 bpm, QTc 389 ms CXR independently interpreted displaying pulmonary nodules with right patchy airspace opacities Brain CT displaying 1.9 cm mass anterior right frontal lobe with extensive surrounding vasogenic edema, second septal 7 mm lesion superior right frontal lobe, possible 7 mm hemorrhagic lesion posterior right parietal lobe Calcium 12.1, ionized calcium 6.2, phosphorus 2.0, sodium 150, BUN 44, creatinine 1.35, creatinine kinase 164, AST 38, ALT 24, alk phos 68, WBC 10.37 UA displaying trace urine blood, urine protein, and urine ketones, 1+ bilirubin Cepheid 4 Plex unremarkable for influenza type A/B, RSV, SARS-CoV-2 Group A strep negative T 98.2F, IA 115, RR 22, BP 137/120, oxygen saturation 95% on room air PTH 44.5 1,25-dihydroxy 14.4 Vitamin D < 5.0 ng/mL Serum osmolality 320 (supports hypernatremia and hypertonic state) Urine osmolality 820 (>600 = kidneys are appropriately reabsorbing free water) Urine random sodium 20 (< 20 supports hypovolemia) Subjective: Patient seen and examined at bedside. No acute events overnight. Pertinent positives and negatives as discussed above, a complete review of systems was performed and all other systems are negative. Vitals: Signs Reviewed Physical Exam: General: nontoxic, no distress, appears at stated age, morbidly obese Derm: Multiple excoriations found across body, b/l LE venous stasis dermatitis Head: atraumatic, normocephalic, symmetric Neck: Nodule located on left anterior neck Eyes: EOMI, anicteric sclera Mouth: no lip lesion, mucus membranes moist Cardiovascular: S1 S2 reg, no murmur, rubs, or gallops Lungs: CTA bilateral, no rhonchi, no rales, no accessory muscle use Abdominal: soft, non-tender to palpataion, no appreciable organomegaly Extremities: no gross muscle atrophy, no edema, no contractures Neuro: Alert, Oriented, CNII-XII grossly intact, gait normal Psych: well appearing, depressed mood, labile affect, is capable of making decisions Data Received Today: Pertinent Labs: Hypocalcemia resolved from 10.7 => 9.8, ionized calcium 5.2 Imaging: MRI brain with and without contrast: Approximately 4 enhancing lesions colette ntified within 3 within the frontal lobe and additional 1 within the left cerebellum, consistent with reported metastasis, large amount of vasogenic edema, resulting in approximately 2 mm midline shift to the left EEG: Displaying no signs of seizure activity Assessment and Plan: Patient is a 59-year-old female with cancer, depression and hypertension presenting with fall in the setting of generalized weakness and brains metastasis. #. Fall in the setting of brain metastasis w/vasogenic edema #. History of endometrial cancer with brain and lung mets #. Weakness/debility #. Morbidly obese CT brain, MRI brain w/wo contrast reviewed as above CXR reviewed as above Decadron 6 mg IVP every 6 hours has been switched to oral Decadron 4 mg q6 hours, patient will continue this course and wean down States she was previously taking medroxyprogesterone but states she ran out PT/OT recommending subacute rehab Oncology following pending recommendations Radiation oncology following, will try to reach out to discuss if there is plans for radiation treatment Discussed with neurology, no Keppra needed, no evidence of seizure on EEG Patient was denied from [facility], currently working with social staff worker to find placement #. LINWOOD on CKD stage IIIa, in setting of dehyrdation, stable #. Mild hypercalcemia, resolved LR has been discontinued S/p zoledronic acid 4 mg IV once Cardiac telemetry PTHrp pending Chronic: #. Hypertension: Continue metoprolol 25 mg PO BID #. Anxiety/depression/OCD: Denies any suicidal or homicidal ideation, continue with Lexapro 10 mg PO QD, Wellbutrin 150 mg PO BID, buspirone 5 mg PO BID #. GERD: Pepcid 10 mg p.o. twice daily #. Asthma: Albuterol inhaler every 4 hours as needed Resolved: #. Hypovolemic hypernatremia #. Mild hypophosphatemia #. Lactic acidosis DVT prophylaxis: Heparin 5000 unit SQ q 8 hours Code status: Full code Anticipated discharge place: Pending clinical course Anticipated discharge time: Pending clinical course Kennedy Jc MD PGY-1 IM Dictation was produced using [employer] dictation software. please excuse any grammatical, word or spelling errors. I have seen and evaluated the patient today. Discussed with the resident and agree with the residents finding and plan as documented in the resident's note. Changes highlighted in blue font. Objective - Vital Signs Vital signs: Vital Signs Temp 97.6 F 09/12/24 14:00 Pulse 67 09/12/24 14:00 Resp 16 09/12/24 14:00 BP 139/82 09/12/24 14:00 Pulse Ox 99 09/12/24 14:00 FiO2 Intake & Output 09/11/24 09/12/24 09/12/24 18:59 06:59 18:59 Output Total 300 Balance -300 Output: Urine 300 Other: Voiding Method Diaper Diaper Diaper External Catheter Incontinent Incontinent External Catheter External Catheter # Voids 1 # Bowel Movements 1 - Labs CBC & Chem 7: 09/12/24 06:32 09/12/24 06:32 Labs: Abnormal Lab Results - Last 24 Hours (Table) 09/12/24 09/12/24 Range/Units 06:32 06:32 RDW 15.1 H (11.5-14.5) % Immature Gran # 0.11 H (0.00-0.04) 10*3/uL Lymphocytes # 0.63 L (0.90-5.00) 10*3/uL Monocytes # 0.13 L (0.20-1.00) 10*3/uL Eosinophils # 0.00 L (0.04-0.35) 10*3/uL Chloride 108 H (98-107) mmol/L BUN 48 H (7-17) mg/dL Creatinine 1.25 H (0.52-1.04) mg/dL Glucose 102 H (74-99) mg/dL
--- NOTE | 2024-09-12 16:04 | P.CONS ---
History of Present Illness - Reason for Consult Consult date: 09/11/24 Brain Metastatic lesions - Chief Complaint headache , - History of Present Illness Mrs. Wolfe is a 59-year-old female with a history of uterine carcinoma her cancer diagnosed in 08/2023 .[facility] hysteroscopy with D&C was done and pathology came back Endometrial adenocarcinoma, endometrioid type, FIGO grade 1 with squamous differentiation , she was unable to have KARINE due to her weight , Patient was placed on Provera 10mg QD. Surgeon felt that there were significant limitations to surgery, other than obesity. Currently she is admitted because she fell on Monday, She was brought to the hospital for evaluation. She denies difficulty swallowing, nausea or vomiting, chest pain, abdominal pain or cramping, she has lost pripheral vision of the right eye few months ago . MRI of the brain revealed a right frontal lobe 2.5 x 2.4 x 2.5 cm heterogeneous enhancing lesion with surrounding vasogenic edema, there is an additional right frontal lobe 0.9 x 1 x 1 cm enhancing lesion with vasogenic edema, a 0.6 cm enhancing lesion in the peripheral left cerebellar . The patient was placed on dexamethasone and anti seizure's medication. Today she is doing well she has no complaint , she denies headache nausea vomiting. Review of Systems Constitutional: Reports as per HPI Eyes: right loss of peripheral vision Ears, nose, mouth and throat: Reports as per HPI Cardiovascular: Reports as per HPI Respiratory: Reports as per HPI Gastrointestinal: Reports as per HPI Genitourinary: Reports as per HPI Menstruation: Reports as per HPI Musculoskeletal: Reports as per HPI Musculoskeletal: bilateral: foot swelling Integumentary: Reports as per HPI Neurological: Reports as per HPI Psychiatric: Reports as per HPI Endocrine: Reports as per HPI Past Medical History Past Medical History: Cancer, Hypertension Additional Past Medical History / Comment(s): OCD History of Any Multi-Drug Resistant Organisms: None Reported Past Surgical History: Appendectomy Additional Past Surgical History / Comment(s): D&C, dental surgery Past Anesthesia/Blood Transfusion Reactions: No Reported Reaction Past Psychological History: Depression, Panic Disorder Smoking Status: Current some day smoker Past Alcohol Use History: None Reported Past Drug Use History: None Reported Medications and Allergies Home Medications Medication Instructions Recorded Confirmed Type Albuterol Sulfate [Albuterol 2 puff INHALATION RT-Q4H PRN 04/08/24 09/09/24 History Sulfate Hfa] Escitalopram [Lexapro] 10 mg PO DAILY 04/08/24 09/09/24 History Ibuprofen [Motrin Ib] 200 mg PO Q8H PRN 04/08/24 09/09/24 History Metoprolol Tartrate [Lopressor] 25 mg PO BID 04/08/24 09/09/24 History buPROPion XL [Wellbutrin XL] 150 mg PO BID 04/08/24 09/09/24 History Famotidine [Pepcid] 10 mg PO BID 09/09/24 09/09/24 History busPIRone HCL 5 mg PO BID 09/09/24 09/09/24 History Allergies Allergy/AdvReac Type Severity Reaction Status Date / Time acetaminophen Allergy Unknown Verified 09/09/24 11:05 [From Darvocet-N 100] nickel Allergy Unknown Verified 09/09/24 11:05 propoxyphene Allergy Unknown Verified 09/09/24 11:05 [From Darvocet-N 100] Physical Exam Vitals: Vital Signs Temp Pulse Resp BP BP Pulse Ox 09/12/24 14:00 97.6 F 67 16 139/82 99 09/12/24 08:00 97.7 F 65 16 126/83 100 09/12/24 01:07 97.6 F 58 L 18 152/87 97 09/11/24 19:15 97.4 F L 65 19 142/78 99 Intake and Output 09/11/24 09/12/24 09/12/24 22:59 06:59 14:59 Output Total 300 Balance -300 Output: Urine 300 Other: Voiding Method Diaper Diaper Incontinent Incontinent External Catheter External Catheter # Voids 1 # Bowel Movements 1 - EENT Eyes: EOMI - Neck Neck: no lymphadenopathy - Gastrointestinal General gastrointestinal: no organomegaly, soft, no tenderness Results CBC & Chem 7: 09/12/24 06:32 09/12/24 06:32 Labs: Abnormal Lab Results - Last 24 Hours (Table) 09/12/24 09/12/24 Range/Units 06:32 06:32 RDW 15.1 H (11.5-14.5) % Immature Gran # 0.11 H (0.00-0.04) 10*3/uL Lymphocytes # 0.63 L (0.90-5.00) 10*3/uL Monocytes # 0.13 L (0.20-1.00) 10*3/uL Eosinophils # 0.00 L (0.04-0.35) 10*3/uL Chloride 108 H (98-107) mmol/L BUN 48 H (7-17) mg/dL Creatinine 1.25 H (0.52-1.04) mg/dL Glucose 102 H (74-99) mg/dL MRI - head: image reviewed Assessment and Plan Assessment: Endometrial carcinoma stage IV with metastatic disease to the brain, with 2.5 x 2.4 x 2.5 cm enhancing lesion in the right frontal lobe, 0.9 x 1 x 1 cm enhancing lesion in the right frontal lobe, 0.6 cm in the right frontal lobe near the vertex, and 1 cm peripheral left cerebellar lesion Plan: MRI of the brain been reviewed and discussed with the patient , we recommended to have stereotactic radiosurgery SRS to 3 lesions in the brain to control her disease , we advised to continue dexamethasone before and during her radiotherapy. I talked about the rationale, the technique ,and the potential acute and late side effects of radiosurgery to the brain , the patient agreed to proceed . We are planning to do simulation tomorrow to proceed with the treatments in the following week.
[2024-09-13 05:55] LABS: Basophils # (A) 0.01 10*3/uL (0.00-0.10); Basophils % (A) 0.2 %; HCT 39.2 % (37.2-46.3); HGB 12.8 g/dL (12.0-15.0); Lymphocytes # (A) 0.54 10*3/uL (0.90-5.00); Lymphocytes % (A) 8.2 %; MCH 28.6 pg (27.0-32.0); MCHC 32.7 g/dL (32.0-37.0); MCV 87.7 fL (80.0-97.0); Mean Platelet Volume 10.2 fL (9.5-12.2); Monocytes # (A) 0.31 10*3/uL (0.20-1.00); Monocytes % (A) 4.7 %; Neutrophils # (A) 5.61 10*3/uL (1.80-7.70); Neutrophils % (A) 85.2 %; Platelet Count 201 10*3/uL (140-440); RBC 4.47 10*6/uL (4.10-5.20); RDW 15.1 % (11.5-14.5); WBC 6.58 10*3/uL (4.50-10.00)
[2024-09-13 06:12] LABS: African American GFR (CKD) 52 (>60 ml/min/1.73 sqM); Anion Gap 9 mmol/L; Blood Urea Nitrogen 50 mg/dL (7-17); Calcium 9.3 mg/dL (8.4-10.2); Carbon Dioxide 25 mmol/L (22-30); Chloride 104 mmol/L (98-107); Glucose 100 mg/dL (74-99); Magnesium 1.9 mg/dL (1.6-2.3); Non-African American GFR(CKD) 45 (>60 ml/min/1.73 sqM); Potassium 4.2 mmol/L (3.5-5.1); Sodium 138 mmol/L (137-145)
[2024-09-13] MEDS: FAMOTIDINE 20 MG TAB PO SCH ×2 (08:43→22:03)
[2024-09-13] MEDS ORDERED: ONDANSETRON 4 MG/2 ML VIAL IVP PRN (14:11)
--- NOTE | 2024-09-13 14:32 | P.PN ---
Subjective Progress Note Date: 09/13/24 Hospital Course: Patient is a 59-year-old female with uterine cancer with brain and liver metastasis status post D&C currently on chemotherapy, depression/anxiety, and hypertension presenting with generalized weakness. Patient states 6 days ago, while getting out of bed, she slipped on her carpet, fell, and landed on her buttocks. She states she was unable to get up and tried calling for help. She says she or her boyfriend 1 month ago and is currently living at home by herself. She states she has been down for the past 6 days. She was eventually able to get hold of the police and EMS where she was ultimately brought in. She states she has not had much to eat or drink during these past few days. She admits to some nausea and says she feels warm like she is having a fever. She admits to sore throat. Denies any chills, headache, shortness of breath, chest pain, abdominal pain, urinary symptoms, suicidal/homicidal ideation. EKG independently interpreted displaying sinus tachycardia, rate 113 bpm, QTc 389 ms CXR independently interpreted displaying pulmonary nodules with right patchy airspace opacities Brain CT displaying 1.9 cm mass anterior right frontal lobe with extensive surrounding vasogenic edema, second septal 7 mm lesion superior right frontal lobe, possible 7 mm hemorrhagic lesion posterior right parietal lobe Calcium 12.1, ionized calcium 6.2, phosphorus 2.0, sodium 150, BUN 44, creatinine 1.35, creatinine kinase 164, AST 38, ALT 24, alk phos 68, WBC 10.37 UA displaying trace urine blood, urine protein, and urine ketones, 1+ bilirubin Cepheid 4 Plex unremarkable for influenza type A/B, RSV, SARS-CoV-2 Group A strep negative T 98.2F, RI 115, RR 22, BP 137/120, oxygen saturation 95% on room air PTH 44.5 1,25-dihydroxy 14.4 Vitamin D < 5.0 ng/mL Serum osmolality 320 (supports hypernatremia and hypertonic state) Urine osmolality 820 (>600 = kidneys are appropriately reabsorbing free water) Urine random sodium 20 (< 20 supports hypovolemia) Subjective: Patient seen and examined at bedside. No acute events overnight. Pertinent positives and negatives as discussed above, a complete review of systems was performed and all other systems are negative. Vitals: Signs Reviewed Physical Exam: General: nontoxic, no distress, appears at stated age, morbidly obese Derm: Multiple excoriations found across body, b/l LE venous stasis dermatitis Head: atraumatic, normocephalic, symmetric Neck: Nodule located on left anterior neck Eyes: EOMI, anicteric sclera Mouth: no lip lesion, mucus membranes moist Cardiovascular: S1 S2 reg, no murmur, rubs, or gallops Lungs: CTA bilateral, no rhonchi, no rales, no accessory muscle use Abdominal: soft, non-tender to palpataion, no appreciable organomegaly Extremities: no gross muscle atrophy, no edema, no contractures Neuro: Alert, Oriented, CNII-XII grossly intact, gait normal Psych: well appearing, depressed mood, labile affect, is capable of making decisions Data Received Today: Pertinent Labs: CBC unremarkable, BMP patient still with elevated BUN and creatinine BUN 50, creatinine 1.30, calcium has remained stable Imaging: MRI brain with and without contrast: Approximately 4 enhancing lesions identified within 3 within the frontal lobe and additional 1 within the left cerebellum, consistent with reported metastasis, large amount of vasogenic edema, resulting in approximately 2 mm midline shift to the left EEG: Displaying no signs of seizure activity Assessment and Plan: Patient is a 59-year-old female with cancer, depression and hypertension presenting with fall in the setting of generalized weakness and brains metastasis. #. Fall in the setting of brain metastasis w/vasogenic edema #. 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 Weakness/debility #. Morbidly obese CT brain, MRI brain w/wo contrast reviewed as above CXR reviewed as above Decadron 6 mg IVP every 6 hours has been switched to oral Decadron 4 mg q6 hours, patient will continue this course and wean down States she was previously taking medroxyprogesterone but states she ran out PT/OT recommending subacute rehab Oncology following pending recommendations Radiation oncology following, patient agreed for radiosurgery, simulation will be today to proceed with treatments for the following week Discussed with neurology, no Keppra needed, no evidence of seizure on EEG Patient was denied from [employer], currently working with psych social worker to find placement #. LINWOOD on CKD stage IIIa, in setting of dehyrdation LR has been discontinued, recommend oral hydration S/p zoledronic acid 4 mg IV once Cardiac telemetry PTHrp pending Closely monitor renal function Chronic: #. Hypertension: Continue metoprolol 25 mg PO BID #. Anxiety/depression/OCD: Denies any suicidal or homicidal ideation, continue with Lexapro 10 mg PO QD, Wellbutrin 150 mg PO BID, buspirone 5 mg PO BID #. GERD: Pepcid 10 mg p.o. twice daily #. Asthma: Albuterol inhaler every 4 hours as needed Resolved: #. Hypovolemic hypernatremia #. Mild hypophosphatemia #. Lactic acidosis #. Mild hypercalcemia DVT prophylaxis: Heparin 5000 unit SQ q 8 hours Code status: Full code Anticipated discharge place: Pending clinical course Anticipated discharge time: Pending clinical course Kennedy Jc MD PGY-1 IM Dictation was produced using [employer] dictation software. please excuse any grammatical, word or spelling errors. I have seen and evaluated the patient today. Discussed with the resident and agree with the residents finding and plan as documented in the resident's note. Changes highlighted in blue font. Objective - Vital Signs Vital signs: Vital Signs Temp 98.5 F 09/13/24 01:49 Pulse 94 09/13/24 01:49 Resp 18 09/13/24 01:49 BP 126/60 09/13/24 01:49 Pulse Ox 94 L 09/13/24 01:49 FiO2 Intake & Output 09/12/24 09/13/24 09/13/24 18:59 06:59 18:59 Output Total 400 Balance -400 Output: Urine 400 Other: Voiding Method Diaper Diaper Incontinent Incontinent External Catheter External Catheter - Labs CBC & Chem 7: 09/13/24 05:21 09/13/24 05:21 Labs: Abnormal Lab Results - Last 24 Hours (Table) 09/12/24 09/12/24 09/13/24 Range/Units 06:32 06:32 05:21 RDW 15.1 H 15.1 H (11.5-14.5) % Immature Gran # 0.11 H 0.11 H (0.00-0.04) 10*3/uL Lymphocytes # 0.63 L 0.54 L (0.90-5.00) 10*3/uL Monocytes # 0.13 L (0.20-1.00) 10*3/uL Eosinophils # 0.00 L 0.00 L (0.04-0.35) 10*3/uL Chloride 108 H (98-107) mmol/L BUN 48 H (7-17) mg/dL Creatinine 1.25 H (0.52-1.04) mg/dL Glucose 102 H (74-99) mg/dL 09/13/24 Range/Units 05:21 RDW (11.5-14.5) % Immature Gran # (0.00-0.04) 10*3/uL Lymphocytes # (0.90-5.00) 10*3/uL Monocytes # (0.20-1.00) 10*3/uL Eosinophils # (0.04-0.35) 10*3/uL Chloride (98-107) mmol/L BUN 50 H (7-17) mg/dL Creatinine 1.30 H (0.52-1.04) mg/dL Glucose 100 H (74-99) mg/dL
--- NOTE | 2024-09-13 17:36 | P.PN ---
Subjective Progress Note Date: 09/13/24 I am following up with the patient and patient had the MRI of the brain which shows brain mets. She is on she is on dexamethasone. Regarding her brain mets she was notified in the past that her brain mets was just behind the right eyes and she was following up with oncology team over [facility]. She is doing well denies of any new neurological issues. Objective - Vital Signs Vital signs: Vital Signs Temp 97.7 F 09/13/24 13:56 Pulse 60 09/13/24 13:56 Resp 20 09/13/24 13:56 BP 136/80 09/13/24 13:56 Pulse Ox 99 09/13/24 13:56 FiO2 Intake & Output 09/12/24 09/13/24 09/13/24 18:59 06:59 18:59 Output Total 400 500 Balance -400 -500 Output: Urine 400 500 Other: Voiding Method Diaper Diaper Diaper Incontinent Incontinent Incontinent External Catheter External Catheter External Catheter - Exam GENERAL: The patient is lying in bed and is not in acute distress. Patient is morbidly obese. NEUROLOGICAL: Higher mental function: The patient is awake, alert, oriented to self, place and time. Patient is following commands. No aphasia and no neglect. Cranial nerves: The pupils are round, equal and reactive to light. Visual f ields is full out of the left eye but has severe poor vision out of the right eye and that is chronic. Facial sensation is normal to touch throughout. The facial strength is normal throughout. Hearing is normal bilaterally to hand rub. Tongue is midline and moved [id number] without any difficulty. No dysarthria is noted. Shoulder shrug is normal bilaterally. Motor: The strength is 5 over 5 throughout uppers. While lowers are limited but has antigravity. Cerebellum: Normal finger to nose bilaterally. Sensation: Sensation is normal to touch throughout. Reflexes (right/left): Hard to assess because of body habits. Some of the workup during this hospital visit consisted of: I reviewed the lab workup. CT of the head is reported as suggestion of 1.9 cm anterior right frontal with extensive surrounding vasogenic edema. No midline shift, herniation or hydrocephalus. Suspect a second septal 7 mm lesion superior right frontal lobe. Possible 7 mm hemorrhagic lesion posterior right parietal lobe. Recommend MRI with and without as well as further clinical workup for either primary neoplasm versus metastatic disease. I personally reviewed the CT of the head and I agree the patient has brain mass over the right frontal with vasogenic edema. MRI Brain: Approximately 4 enhancing lesion identified within the right frontal and additional 1 in the left cerebellum consistent with reported metastasis. There is a large amount of vasogenic edema in the right frontal lobe resulting approximately 2 mm of midline shift to the left. Additional focal region of FLAIR signal hyperintensity within the right temporal occipital region without enhancement may represent developing early metastasis. No evidence of acute/subacute infarct. - Labs CBC & Chem 7: 09/13/24 05:21 09/13/24 05:21 Labs: Abnormal Lab Results - Last 24 Hours (Table) 09/13/24 09/13/24 Range/Units 05:21 05:21 RDW 15.1 H (11.5-14.5) % Immature Gran # 0.11 H (0.00-0.04) 10*3/uL Lymphocytes # 0.54 L (0.90-5.00) 10*3/uL Eosinophils # 0.00 L (0.04-0.35) 10*3/uL BUN 50 H (7-17) mg/dL Creatinine 1.30 H (0.52-1.04) mg/dL Glucose 100 H (74-99) mg/dL Assessment and Plan Assessment: This is a 59-year-old woman who presents to the emergency department because of a fall at home. It seems that she got out of bed and her foot got tangled with her carpet and as a result she fell on her buttocks region and did not have any focal deficit or did not lose consciousness. She has known history of uterine cancer with mets to the liver and brain. Fall and it appears mechanical. Brain mets with vasogenic edema. Hypernatremia---resolved History of uterine cancer with mets to liver and brain status post D&C Acute kidney injury Hypercalcemia Hypophosphatemia Morbid Obesity Plan: Patient is on Decadron 4 mg every 6 hours. Her preliminary EEG is negative for any seizures. Patient does not want to be on any antiseizure medication. Oncology team is on board Patient is known to [facility] Oncology team. PT and OT are consulted Will defer the rest of the medical management to primary team and other specialist. Consider following up with the neurosurgery team as an outpatient but I doubt if there is any intervention On discharge recommend the patient to follow-up with a neurologist as an outpatient within 3 weeks. There is no further neurological workup. Will sign off. Please reconsult if needed. Time with Patient: Less than 30
--- NOTE | 2024-09-13 19:40 | P.PN ---
Subjective Progress Note Date: 09/13/24 Pt unable to tolerate simulation this morning. Pt is tearful at todays visit. Reporting nausea with steroids Objective - Vital Signs Vital signs: Vital Signs Temp 97.7 F 09/13/24 13:56 Pulse 60 09/13/24 13:56 Resp 20 09/13/24 13:56 BP 136/80 09/13/24 13:56 Pulse Ox 99 09/13/24 13:56 FiO2 Intake & Output 09/12/24 09/13/24 09/13/24 18:59 06:59 18:59 Output Total 400 500 Balance -400 -500 Output: Urine 400 500 Other: Voiding Method Diaper Diaper Diaper Incontinent Incontinent Incontinent External Catheter External Catheter External Catheter - Constitutional General appearance: Present: morbidly obese - EENT Eyes: Present: anicteric sclerae, EOMI ENT: Present: hearing grossly normal - Gastrointestinal General gastrointestinal: Present: soft. Absent: tenderness - Integumentary Integumentary: Absent: cyanotic, jaundiced - Musculoskeletal Musculoskeletal: Present: generalized weakness - Psychiatric Psychiatric: Present: A&O x's 3 - Labs CBC & Chem 7: 09/13/24 05:21 09/13/24 05:21 Labs: Abnormal Lab Results - Last 24 Hours (Table) 09/13/24 09/13/24 Range/Units 05:21 05:21 RDW 15.1 H (11.5-14.5) % Immature Gran # 0.11 H (0.00-0.04) 10*3/uL Lymphocytes # 0.54 L (0.90-5.00) 10*3/uL Eosinophils # 0.00 L (0.04-0.35) 10*3/uL BUN 50 H (7-17) mg/dL Creatinine 1.30 H (0.52-1.04) mg/dL Glucose 100 H (74-99) mg/dL Assessment and Plan (1) Debility Current Visit: Yes Status: Acute Code(s): R53.81 - OTHER MALAISE SNOMED Code(s): 86342941 (2) Endometrial carcinoma Current Visit: Yes Status: Acute Priority: High Code(s): C54.1 - MALIGNANT NEOPLASM OF ENDOMETRIUM SNOMED Code(s): 848743826 (3) Metastasis to brain Current Visit: Yes Status: Acute Code(s): C79.31 - SECONDARY MALIGNANT NEOPLASM OF BRAIN SNOMED Code(s): 92062888 (4) Vasogenic edema Current Visit: Yes Status: Acute Code(s): G93.6 - CEREBRAL EDEMA SNOMED Code(s): 345549907 (5) Weakness Current Visit: Yes Status: Acute Priority: High Code(s): R53.1 - WEAKNESS SNOMED Code(s): 03189954 Plan: Endometrial carcinoma - Diagnosis as documented in consult. [employer]PATCH[employer] Oncologist and Surgeon notes were obtained and summarized. - When patient was seen today she cont to be distressed, tearful. We reviewed that her cancer has spread. She seemed to understand that. I told her about the metastatic disease to the brain and that a Radiation Oncologist would be in to see her. She seemed ok with that. - Patient has been started on steroids for brain metastasis. She has been started on Keppra for seizure prophylaxis. Discussed case with Radiation Oncologist. Pt was scheduled for simulation this morning but was unable to tolerate due to breathing issues, pain, and anxiety. Further discussed case with rad onc and admitting team. Would like to hold discharge until pt has completed radiation. Will try to simulate patient on monday and give anti-anxiety medication before if needed Weakness - Secondary to metastatic malignancy, hypercalcemia and brain metastases -Likely it will be challenging to rehabilitate the patient without some sort of treatment of disease. -Physical therapy consulted. Plan for rehab upon discharge Hypercalcemia -Calcium has come down with hydration. IM administered zometa -Calcium now normal at 9.3 Doctor attests: I performed a history and physical examination of this patient, developed impression and plan of care. Discussed with dictator. I agree with dictators note, documented as a scribe.
[2024-09-14 07:46] LABS: African American GFR (CKD) 55 (>60 ml/min/1.73 sqM); Anion Gap 5 mmol/L; Blood Urea Nitrogen 44 mg/dL (7-17); Calcium 8.5 mg/dL (8.4-10.2); Carbon Dioxide 26 mmol/L (22-30); Chloride 109 mmol/L (98-107); Glucose 99 mg/dL (74-99); Magnesium 1.9 mg/dL (1.6-2.3); Non-African American GFR(CKD) 47 (>60 ml/min/1.73 sqM); Potassium 4.1 mmol/L (3.5-5.1); Sodium 140 mmol/L (137-145)
--- NOTE | 2024-09-14 11:33 | P.PN ---
Subjective Progress Note Date: 09/14/24 I have seen and evaluated the patient today. Discussed with the resident and agree with the residents finding and plan as documented in the resident's note. Changes highlighted in blue font. Hospital Course: Patient is a 59-year-old female with uterine cancer with brain and liver metastasis status post D&C currently on chemotherapy, depression/anxiety, and hypertension presenting with generalized weakness. Patient states 6 days ago, while getting out of bed, she slipped on her carpet, fell, and landed on her buttocks. She states she was unable to get up and tried calling for help. She says she or her boyfriend 1 month ago and is currently living at home by herself. She states she has been down for the past 6 days. She was eventually able to get hold of the police and EMS where she was ultimately brought in. She states she has not had much to eat or drink during these past few days. She admits to some nausea and says she feels warm like she is having a fever. She admits to sore throat. Denies any chills, headache, shortness of breath, chest pain, abdominal pain, urinary symptoms, suicidal/homicidal ideation. EKG independently interpreted displaying sinus tachycardia, rate 113 bpm, QTc 389 ms CXR independently interpreted displaying pulmonary nodules with right patchy airspace opacities Brain CT displaying 1.9 cm mass anterior right frontal lobe with extensive surrounding vasogenic edema, second septal 7 mm lesion superior right frontal lobe, possible 7 mm hemorrhagic lesion posterior right parietal lobe Calcium 12.1, ionized calcium 6.2, phosphorus 2.0, sodium 150, BUN 44, creatinine 1.35, creatinine kinase 164, AST 38, ALT 24, alk phos 68, WBC 10.37 UA displaying trace urine blood, urine protein, and urine ketones, 1+ bilirubin Cepheid 4 Plex unremarkable for influenza type A/B, RSV, SARS-CoV-2 Group A strep negative T 98.2F, PA 115, RR 22, BP 137/120, oxygen saturation 95% on room air PTH 44.5 1,25-dihydroxy 14.4 Vitamin D < 5.0 ng/mL Serum osmolality 320 (supports hypernatremia and hypertonic state) Urine osmolality 820 (>600 = kidneys are appropriately reabsorbing free water) Urine random sodium 20 (< 20 supports hypovolemia) MRI brain with and without contrast: Approximately 4 enhancing lesions identified within 3 within the frontal lobe and additional 1 within the left cerebellum, consistent with reported metastasis, large amount of vasogenic edema, resulting in approximately 2 mm midline shift to the left EEG: Displaying no signs of seizure activity Subjective: Patient seen and examined at bedside. No acute events overnight. Patient had an episode of panic attack yesterday during attempt of brain radiation, today feels better Pertinent positives and negatives as discussed above, a complete review of systems was performed and all other systems are negative. Vitals: Signs Reviewed Physical Exam: General: nontoxic, no distress, appears at stated age, morbidly obese Derm: Multiple excoriations found across body, b/l LE venous stasis dermatitis Head: atraumatic, normocephalic, symmetric Neck: Nodule located on left anterior neck Eyes: EOMI, anicteric sclera Mouth: no lip lesion, mucus membranes moist Cardiovascular: S1 S2 reg, no murmur, rubs, or gallops Lungs: CTA bilateral, no rhonchi, no rales, no accessory muscle use Abdominal: soft, non-tender to palpataion, no appreciable organomegaly Extremities: no gross muscle atrophy, no edema, no contractures Neuro: Alert, Oriented, CNII-XII grossly intact, gait normal Psych: well appearing, depressed mood, labile affect, is capable of making decisions Data Received Today: Pertinent Labs: BMP showing stable creatinine function at 1.30 => 1.24, calcium has remained normal at 8.5 Imaging: N/A Assessment and Plan: Patient is a 59-year-old female with cancer, depression and hypertension presenting with fall in the setting of generalized weakness and brains metastasis. #. Fall in the setting of brain metastasis w/vasogenic edema #. 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 Weakness/debility #. Morbidly obese CT brain, MRI brain w/wo contrast reviewed as above CXR reviewed as above Decadron 6 mg IVP every 6 hours has been switched to oral Decadron 4 mg q6 hours, patient will continue this course and wean down States she was previously taking medroxyprogesterone but states she ran out PT/OT recommending subacute rehab Oncology note reviewed, would like to hold on discharge until patient has completed radiation treatment, will try to simulate patient Monday Radiation oncology following, patient agreed for radiosurgery, she was unable to tolerate simulation yesterday, will attempt Monday Discussed with neurology, no Keppra needed, no evidence of seizure on EEG Patient was denied from [facility], currently working with socially responsible investment adviser to find placement #. LINWOOD on CKD stage IIIa, in setting of dehyrdation LR has been discontinued, recommend oral hydration Cardiac telemetry Closely monitor renal function Chronic: #. Hypertension: Continue metoprolol 25 mg PO BID #. Anxiety/depression/OCD: Denies any suicidal or homicidal ideation, continue with Lexapro 10 mg PO QD, Wellbutrin 150 mg PO BID, buspirone 5 mg PO BID #. GERD: Pepcid 10 mg PO BID #. Asthma: Albuterol inhaler every 4 hours as needed Resolved: #. Hypovolemic hypernatremia #. Mild hypophosphatemia #. Lactic acidosis #. Mild hypercalcemia: S/p zoledronic acid 4 mg IV once, PTHrp pending DVT prophylaxis: Heparin 5000 unit SQ q 8 hours Code status: Full code Anticipated discharge place: Pending clinical course Anticipated discharge time: Pending clinical course Kennedy Jc MD PGY-1 IM Dictation was produced using [employer] dictation software. please excuse any grammatical, word or spelling errors. Objective - Vital Signs Vital signs: Vital Signs Temp 97.7 F 09/14/24 01:55 Pulse 55 L 09/14/24 01:55 Resp 16 09/14/24 01:55 BP 136/80 09/14/24 01:55 Pulse Ox 98 09/14/24 01:55 FiO2 Intake & Output 09/13/24 09/14/24 09/14/24 18:59 06:59 18:59 Intake Total 590 Output Total 500 900 Balance -500 -310 Intake: Oral 590 Output: Urine 500 900 Other: Voiding Method Diaper Diaper Incontinent Incontinent External Catheter External Catheter - Labs CBC & Chem 7: 09/13/24 05:21 09/14/24 07:07 Labs: Abnormal Lab Results - Last 24 Hours (Table) 09/14/24 Range/Units 07:07 Chloride 109 H (98-107) mmol/L BUN 44 H (7-17) mg/dL Creatinine 1.24 H (0.52-1.04) mg/dL
[2024-09-15 05:37] LABS: Basophils # (A) 0.02 10*3/uL (0.00-0.10); Basophils % (A) 0.2 %; HGB 13.4 g/dL (12.0-15.0); Lymphocytes # (A) 0.45 10*3/uL (0.90-5.00); Lymphocytes % (A) 5.5 %; MCH 28.4 pg (27.0-32.0); MCHC 32.7 g/dL (32.0-37.0); MCV 86.9 fL (80.0-97.0); Mean Platelet Volume 10.5 fL (9.5-12.2); Monocytes # (A) 0.48 10*3/uL (0.20-1.00); Monocytes % (A) 5.9 %; Neutrophils # (A) 6.96 10*3/uL (1.80-7.70); Neutrophils % (A) 85.5 %; Platelet Count 190 10*3/uL (140-440); RBC 4.72 10*6/uL (4.10-5.20); RDW 15.3 % (11.5-14.5); WBC 8.15 10*3/uL (4.50-10.00)
[2024-09-15 05:52] LABS: African American GFR (CKD) 58 (>60 ml/min/1.73 sqM); Anion Gap 8 mmol/L; Blood Urea Nitrogen 44 mg/dL (7-17); Calcium 8.1 mg/dL (8.4-10.2); Carbon Dioxide 25 mmol/L (22-30); Chloride 106 mmol/L (98-107); Glucose 102 mg/dL (74-99); Magnesium 2.1 mg/dL (1.6-2.3); Non-African American GFR(CKD) 50 (>60 ml/min/1.73 sqM); Potassium 4.1 mmol/L (3.5-5.1); Sodium 139 mmol/L (137-145)
--- NOTE | 2024-09-15 14:06 | P.PN ---
Subjective Progress Note Date: 09/15/24 Hospital Course: Patient is a 59-year-old female with uterine cancer with brain and liver metast asis status post D&C currently on chemotherapy, depression/anxiety, and hypertension presenting with generalized weakness. Patient states 6 days ago, while getting out of bed, she slipped on her carpet, fell, and landed on her buttocks. She states she was unable to get up and tried calling for help. She says she or her boyfriend 1 month ago and is currently living at home by herself. She states she has been down for the past 6 days. She was eventually able to get hold of the police and EMS where she was ultimately brought in. She states she has not had much to eat or drink during these past few days. She admits to some nausea and says she feels warm like she is having a fever. She admits to sore throat. Denies any chills, headache, shortness of breath, chest pain, abdominal pain, urinary symptoms, suicidal/homicidal ideation. EKG independently interpreted displaying sinus tachycardia, rate 113 bpm, QTc 389 ms CXR independently interpreted displaying pulmonary nodules with right patchy airspace opacities Brain CT displaying 1.9 cm mass anterior right frontal lobe with extensive surrounding vasogenic edema, second septal 7 mm lesion superior right frontal lobe, possible 7 mm hemorrhagic lesion posterior right parietal lobe Calcium 12.1, ionized calcium 6.2, phosphorus 2.0, sodium 150, BUN 44, creatinine 1.35, creatinine kinase 164, AST 38, ALT 24, alk phos 68, WBC 10.37 UA displaying trace urine blood, urine protein, and urine ketones, 1+ bilirubin Cepheid 4 Plex unremarkable for influenza type A/B, RSV, SARS-CoV-2 Group A strep negative T 98.2F, RI 115, RR 22, BP 137/120, oxygen saturation 95% on room air PTH 44.5 1,25-dihydroxy 14.4 Vitamin D < 5.0 ng/mL Serum osmolality 320 (supports hypernatremia and hypertonic state) Urine osmolality 820 (>600 = kidneys are appropriately reabsorbing free water) Urine random sodium 20 (< 20 supports hypovolemia) MRI brain with and without contrast: Approximately 4 enhancing lesions identified within 3 within the frontal lobe and additional 1 within the left cerebellum, consistent with reported metastasis, large amount of vasogenic edema, resulting in approximately 2 mm midline shift to the left EEG: Displaying no signs of seizure activity Subjective: Patient seen and examined at bedside. No acute events overnight. Denies chest pain, shortness of breath, abdominal pain Pertinent positives and negatives as discussed above, a complete review of systems was performed and all other systems are negative. Vitals: Signs Reviewed Physical Exam: General: nontoxic, no distress, appears at stated age, morbidly obese Derm: Multiple excoriations found across body, b/l LE venous stasis dermatitis Head: atraumatic, normocephalic, symmetric Neck: Nodule located on left anterior neck Eyes: EOMI, anicteric sclera Mouth: no lip lesion, mucus membranes moist Cardiovascular: S1 S2 reg, no murmur, rubs, or gallops Lungs: CTA bilateral, no rhonchi, no rales, no accessory muscle use Abdominal: soft, non-tender to palpataion, no appreciable organomegaly Extremities: no gross muscle atrophy, no edema, no contractures Neuro: Alert, Oriented, CNII-XII grossly intact, gait normal Psych: well appearing, depressed mood, labile affect, is capable of making decisions Data Received Today: Pertinent Labs: BMP showing stable creatinine function at 1.30 => 1. 18, calcium 8.1 Imaging: N/A Assessment and Plan: Patient is a 59-year-old female with cancer, depression and hypertension presenting with fall in the setting of generalized weakness and brains metastasis. #. Fall in the setting of brain metastasis w/vasogenic edema #. 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 Weakness/debility #. Morbidly obese CT brain, MRI brain w/wo contrast reviewed as above CXR reviewed as above Decadron 6 mg IVP every 6 hours has been switched to oral Decadron 4 mg q6 hours, patient will continue this course and wean down States she was previously taking medroxyprogesterone but states she ran out PT/OT recommending subacute rehab Oncology note reviewed, would like to hold on discharge until patient has completed radiation treatment, will try to simulate patient Monday Radiation oncology following, patient agreed for radiosurgery, she was unable to tolerate simulation yesterday, will attempt Monday Discussed with neurology, no Keppra needed, no evidence of seizure on EEG Patient was denied from [facility], currently working with social media editor to find placement #. LINWOOD on CKD stage IIIa, in setting of dehyrdation LR has been discontinued, recommend oral hydration Cardiac telemetry Closely monitor renal function Chronic: #. Hypertension: Continue metoprolol 25 mg PO BID #. Anxiety/depression/OCD: Denies any suicidal or homicidal ideation, continue with Lexapro 10 mg PO QD, Wellbutrin 150 mg PO BID, buspirone 5 mg PO BID #. GERD: Pepcid 10 mg PO BID #. Asthma: Albuterol inhaler every 4 hours as needed Resolved: #. Hypovolemic hypernatremia #. Mild hypophosphatemia #. Lactic acidosis #. Mild hypercalcemia: S/p zoledronic acid 4 mg IV once, PTHrp pending DVT prophylaxis: Heparin 5000 unit SQ q 8 hours Code status: Full code Anticipated discharge place: Pending clinical course Anticipated discharge time: Pending clinical course Objective - Vital Signs Vital signs: Vital Signs Temp 97.9 F 09/15/24 07:00 Pulse 60 09/15/24 07:00 Resp 20 09/15/24 07:00 BP 146/83 09/15/24 07:00 Pulse Ox 96 09/15/24 07:00 FiO2 Intake & Output 09/14/24 09/15/24 09/15/24 18:59 06:59 18:59 Intake Total 590 590 480 Output Total 400 Balance 590 190 480 Intake: Oral 590 590 480 Output: Urine 400 Other: Voiding Method Diaper Diaper Diaper Incontinent Incontinent Incontinent External Catheter External Catheter External Catheter - Labs CBC & Chem 7: 09/15/24 05:05 09/15/24 05:05 Labs: Abnormal Lab Results - Last 24 Hours (Table) 09/15/24 09/15/24 Range/Units 05:05 05:05 RDW 15.3 H (11.5-14.5) % Immature Gran # 0.24 H (0.00-0.04) 10*3/uL Lymphocytes # 0.45 L (0.90-5.00) 10*3/uL Eosinophils # 0.00 L (0.04-0.35) 10*3/uL BUN 44 H (7-17) mg/dL Creatinine 1.18 H (0.52-1.04) mg/dL Glucose 102 H (74-99) mg/dL Calcium 8.1 L (8.4-10.2) mg/dL
[2024-09-16 07:32] VITALS: RESP 18
[2024-09-16 12:53] VITALS: BP 127/74; PULSE 57; TEMP 97.5
[2024-09-16] MEDS ORDERED: ALPRAZolam 1 MG TAB PO PRN (13:51)
--- NOTE | 2024-09-16 16:29 | P.DS ---
Providers Date of admission: 09/09/24 10:49 Expected date of discharge: 09/16/24 Attending physician: Nelli Chawla MD Consults: 09/09/24 10:46 Consult Physician Routine Consulting Provider: Francois Zhao Consult Reason/Comments: brain metastasis Do you want consulting provider notified?: Yes 09/09/24 11:25 Consult Physician Routine Consulting Provider: Leti Sahni Consult Reason/Comments: uterine cancer, brain mets Do you want consulting provider notified?: Yes 09/10/24 21:17 Consult Physician Routine Consulting Provider: Vinod Bragg Consult Reason/Comments: brain metastasis Do you want consulting provider notified?: Yes, Notify in am Primary care physician: 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 Patient states 6 days ago, while getting out of bed, she slipped on her carpet, fell, and landed on her buttocks. She states she was unable to get up and tried calling for help. She says she or her boyfriend 1 month ago and is currently living at home by herself. She states she has been down for the past 6 days. She was eventually able to get hold of the police and EMS where she was ultimately brought in. She states she has not had much to eat or drink during these past few days. She admits to some nausea and says she feels warm like she is having a fever. She admits to sore throat. Denies any chills, headache, shortness of breath, chest pain, abdominal pain, urinary symptoms, suicidal/homicidal ideation. EKG interpreted displaying sinus tachycardia, rate 113 bpm, QTc 389 ms. CXR independently interpreted displaying pulmonary nodules with right patchy airspace opacities. Brain CT displaying 1.9 cm mass anterior right frontal lobe with extensive surrounding vasogenic edema, second septal 7 mm lesion superior right frontal lobe, possible 7 mm hemorrhagic lesion posterior right parietal lobe. Calcium 12.1, ionized calcium 6.2, phosphorus 2.0, sodium 150, BUN 44, creatinine 1.35, creatinine kinase 164, AST 38, ALT 24, alk phos 68, WBC 10.37. UA displaying trace urine blood, urine protein, and urine ketones, 1+ bilirubin. Cepheid 4 Plex unremarkable for influenza type A/B, RSV, SARS-CoV-2. Group A strep negative. EEG on 09/09/2024 showed an abnormal routine EEG. The background is normal. Focal slowing as stated above is suggestive for cerebral dysfunction in the involved region. Otherwise, there is no epileptiform discharge or seizure on the EEG. Lack of epileptiform discharge does not rule out underlying epilepsy. Clinical correlation is recommended. Brain MRI shows approximately 4 enhancing lesions identified with 3 within the right frontal lobe and additional 1 within the left cerebellum. Consistent with reported metastasis. There is a large amount of vasogenic edema within the right frontal lobe resulting in proximately 2 mm midline shift to the left. Additional focal region of FLAIR signal hyperintensity within the right temporal occipital region without enhancement. May represent developing early metastasis. No evidence of acute/subacute infarct. Radiation oncology was consulted and they recommend the patient to be discharged to rehab and begin treatment after discharge from rehab. Dexamethasone 4 mg every 6 hours has been added to patient's home medications. Will be on Decadron taper. Ibuprofen 200 mg every 8 hours as needed has been discontinued. Patient will be transferred to subacute rehab. Follow-up with radiation oncology in 1 week after discharge. Patient also advised to follow-up with PCP in 1 to 2 days after discharge and hematology/oncology in 3 weeks. Physical exam GENERAL: This is a 59-year-old in no apparent distress at the time of examination. Pleasant and cooperative. HEENT: Head is atraumatic, normocephalic. Pupils are equal, round, and reactive to light. Sclerae anicteric. Conjunctivae are clear. Mucus membranes of the mouth are moist. Neck is supple. RESPIRATORY: Clear to auscultation. No wheezes, rales, or rhonchi. No use of accessory muscles. Patient maintaining oxygen saturation greater than 92%. No chest wall tenderness is noted on palpation or with deep breathing. CARDIOVASCULAR: Regular rate and rhythm. S1 and S2 noted. No systolic or diastolic murmur auscultated. No JVD noted. No S3 or S4 noted. GASTROINTESTINAL: No distention noted. Abdomen soft and round. Normal active bowel sounds auscultated x 4 quadrants. No pain or tenderness noted upon palpation. INTEGUMENTARY: No cyanosis. No jaundice. No rashes noted. No cellulitis noted. EXTREMITIES: 2+ peripheral pulses. No evidence of peripheral edema. No calf tenderness noted. NEUROLOGIC: Cranial nerves II-XII intact. PSYCHIATRIC: Awake, alert, and oriented X 3. Appropriate affect. Intact judgement and insight. 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 Patient was discharged on 09/16/2024 at 1544. I have seen and evaluated the patient today. Discussed with the resident and agree with the residents finding and plan as documented in the resident's note. Changes highlighted in blue font. Patient Condition at Discharge: Stable Plan - Discharge Summary Discharge Rx Participant: Yes New Discharge Prescriptions: New dexAMETHasone ORAL [Hexadrol] 4 mg PO Q6HR tab Continue Metoprolol Tartrate [Lopressor] 25 mg PO BID Escitalopram [Lexapro] 10 mg PO DAILY busPIRone HCL 5 mg PO BID Famotidine [Pepcid] 10 mg PO BID Albuterol Sulfate [Albuterol Sulfate Hfa] 2 puff INHALATION RT-Q4H PRN PRN Reason: Shortness Of Breath buPROPion XL [Wellbutrin XL] 150 mg PO BID Discontinued Ibuprofen [Motrin Ib] 200 mg PO Q8H PRN PRN Reason: Fever And/ Or Pain Discharge Medication List Albuterol Sulfate [Albuterol Sulfate Hfa] 2 puff INHALATION RT-Q4H PRN 04/08/24 [History] Escitalopram [Lexapro] 10 mg PO DAILY 04/08/24 [History] Metoprolol Tartrate [Lopressor] 25 mg PO BID 04/08/24 [History] buPROPion XL [Wellbutrin XL] 150 mg PO BID 04/08/24 [History] Famotidine [Pepcid] 10 mg PO BID 09/09/24 [History] busPIRone HCL 5 mg PO BID 09/09/24 [History] dexAMETHasone ORAL [Hexadrol] 4 mg PO Q6HR tab 09/16/24 [Rx] Follow up Appointment(s)/Referral(s): Leonardo Riggins MD [Primary Care Provider] - 1-2 days Oswaldo Byrne [STAFF PHYSICIAN] - 3 Weeks Vinod Bragg MD [STAFF PHYSICIAN] - 1 Week Patient Instructions/Handouts: Brain Metastasis (DC) Activity/Diet/Wound Care/Special Instructions: Please see oncology and radiation oncology after rehab. Discharge Disposition: TRANSFER TO SNF/ECF
== END 2024-09-16 17:51 | DRG 54 ==
LOC: EC 07:57 → 5NMEDONC 10:49
PROVIDERS: ADMIT Internal Medicine; ATTEND Internal Medicine
DX: C79.31 Secondary malignant neoplasm of brain (principal); G93.6 Cerebral edema; C78.00 Secondary malignant neoplasm of unspecified lung; C78.7 Secondary malignant neoplasm of liver and intrahepatic bile duct; E87.0 Hyperosmolality and hypernatremia; E83.39 Other disorders of phosphorus metabolism; C77.9 Secondary and unspecified malignant neoplasm of lymph node, unspecified; C54.1 Malignant neoplasm of endometrium; E86.0 Dehydration; E66.01 Morbid (severe) obesity due to excess calories; N18.31 Chronic kidney disease, stage 3a; F32.A Depression, unspecified; I12.9 Hypertensive chronic kidney disease with stage 1 through stage 4 chronic kidney disease, or unspecified chronic kidney disease; J45.909 Unspecified asthma, uncomplicated; R63.4 Abnormal weight loss; Z68.44 Body mass index [BMI] 60.0-69.9, adult; E87.20 Acidosis, unspecified; N17.9 Acute kidney failure, unspecified; E83.52 Hypercalcemia; E86.1 Hypovolemia; F17.200 Nicotine dependence, unspecified, uncomplicated; F41.0 Panic disorder [episodic paroxysmal anxiety]; F42.9 Obsessive-compulsive disorder, unspecified; H54.7 Unspecified visual loss; K21.9 Gastro-esophageal reflux disease without esophagitis; Z91.81 History of falling; Z79.899 Other long term (current) drug therapy; Z90.710 Acquired absence of both cervix and uterus; Z92.3 Personal history of irradiation; Z60.2 Problems related to living alone; Z88.5 Allergy status to narcotic agent; Z28.21 Immunization not carried out because of patient refusal; Z11.52 Encounter for screening for COVID-19
CPT/HCPCS: 36415; 70450; 70553; 71046; 80048; 80053; 81001; 82140; 82306; 82330; 82550; 82652; 83605; 83735; 83930; 83935; 83970; 84100; 84300; 84443; 85025; 85610; 85730; 87636; 87651; 93005; 94760; 95816; 96361; 96374; 96375; 99285